=== PATIENT | female | born 1950 | race Caucasian/White ===

== ENCOUNTER → 2018-09-14 13:38 | Outpatient (CLI) | payer MEDICARE, SELFPAY | PROVIDERS: PCP Student in an Organized Health Care Education/Training Program; Visit Provider Student in an Organized Health Care Education/Training Program | DX: M85.832 Other specified disorders of bone density and structure, left forearm (principal); Z78.0 Asymptomatic menopausal state; Z82.62 Family history of osteoporosis | CPT/HCPCS: 77080; 77081 ==

== ENCOUNTER → 2018-10-12 14:47 | Outpatient (CLI) | payer MEDICARE, SELFPAY ==
--- NOTE | 2018-10-12 | DI.US.S_ITS ---
ULTRASOUND OF LEFT BREAST: 10/12/2018 CLINICAL: 6 month follow-up biopsy. Comparison is made to exams dated: 10/12/2018 mammogram, 03/11/2018 mammogram, and 03/11/2018 ultrasound biopsy - [facility]. Color flow and real-time ultrasound of the left breast were performed on the areas of interest. Gallardo scale images of the real-time examination were reviewed. There is a stable surgical scar in the left breast at 12 o'clock anterior depth. This scar displays posterior acoustic shadowing. IMPRESSION: BENIGN There is no sonographic evidence of malignancy. A 1 year screening mammogram is recommended. This exam was interpreted at Station ID: [id number]. Electronically Signed By: Court quintanilla/:10/12/2018 17:28:56 letter sent: Normal Exam Ultrasound BI-RADS: 2 Benign
--- NOTE | 2018-10-12 | DI.MG.S_ITS ---
UNILATERAL LEFT DIGITAL DIAGNOSTIC MAMMOGRAM 3D/2D SHORT-TERM FOLLOW-UP: 10/12/2018 CLINICAL: Patient returns for a 6 month follow up of the left breast. Post biopsy. Comparison is made to exams dated: 03/30/2018 specimen - [facility], 03/11/2018 mammogram - [facility], and 03/30/2018 stereotactic biopsy - [facility]. There are scattered fibroglandular elements in left breast. There is a stable architectural distortion in the left breast central to the nipple anterior depth. There is a biopsy clip associated with the architectural distortion. No other significant masses or calcifications are seen in the breast. IMPRESSION: INCOMPLETE: NEEDS ADDITIONAL IMAGING EVALUATION The stable architectural distortion in the left breast is indeterminate. A targeted ultrasound of the left breast is recommended and will be performed immediately following this exam. This exam was interpreted at Station ID: [id number]. NOTE: For mammograms, a report in lay terms will be sent to the patient. Approximately 15% of breast malignancies will not be visualized mammographically. In the management of a palpable breast mass, a negative mammogram must not discourage biopsy of a clinically suspicious lesion. Electronically Signed By: Court quintanilla/:10/12/2018 15:46:11 letter sent: Additional Imaging Needed ACR BI-RADS Category 0: Incomplete [id number]
== END ==
PROVIDERS: PCP Student in an Organized Health Care Education/Training Program; Visit Provider Student in an Organized Health Care Education/Training Program
DX: R92.8 Other abnormal and inconclusive findings on diagnostic imaging of breast (principal)
CPT/HCPCS: 76642; 77065; G0279

== ENCOUNTER → 2018-11-03 15:48 | Outpatient (CLI) | payer MEDICARE, SELFPAY ==
--- NOTE | 2018-11-03 | DI.CT.S_ITS ---
PROCEDURE: CT SINUS SCREEN WO CON INDICATIONS: chronic sinusitis TECHNIQUE: Noncontrast 3.0 mm axial images acquired from the frontal sinuses to the mid-sella, with coronal and sagittal reformats. For radiation dose reduction, the following was used: automated exposure control, adjustment of mA and/or kV according to patient size. COMPARISON: [facility], CT, SINUS SCREEN WO CONTRAST, 09/13/2012, 9:23. FINDINGS: Image quality: Excellent. Maxillary Sinuses: No bony remodeling or destruction. Sinuses are clear. Ethmoid Air Cells: No bony remodeling or destruction. Sinuses are clear. Sphenoid Sinuses: No bony remodeling or destruction. Sinuses are clear. Frontal Sinuses: No bony remodeling or destruction. Sinuses are clear. Ostiomeatal Complexes: Ostiomeatal complexes are patent. No Beulah cells. Miscellaneous: Visualized intra-orbital contents are normal. Right eduardo bullosa. Leftward nasal septal deviation. Diffuse cervical disc degeneration. Left temporal mandibular joint degeneration. IMPRESSION: Clear sinuses. Right eduardo bullosa. Dictated by: Devan Fisher M.D. on 11/03/2018 at 16:21 Approved by: Devan Fisher M.D. on 11/03/2018 at 16:25
== END ==
PROVIDERS: PCP Student in an Organized Health Care Education/Training Program; Visit Provider Otolaryngology
DX: J34.3 Hypertrophy of nasal turbinates (principal); J32.9 Chronic sinusitis, unspecified; M47.812 Spondylosis without myelopathy or radiculopathy, cervical region; M19.91 Primary osteoarthritis, unspecified site
CPT/HCPCS: 70486

== ENCOUNTER → 2019-02-08 15:09 | Outpatient (CLI) | payer MEDICARE, SELFPAY ==
--- NOTE | 2019-02-08 | DI.MG.S_ITS ---
BILATERAL DIGITAL SCREENING MAMMOGRAM 3D/2D WITH CAD: 02/08/2019 CLINICAL: Routine screening. Family history of breast cancer. Comparison is made to exams dated: 10/12/2018 mammogram - [facility], 03/30/2018 specimen, and 03/30/2018 stereotactic biopsy - [facility]. There are scattered fibroglandular elements in both breasts. Current study was also evaluated with a Computer Aided Detection (CAD) system. There are benign calcifications in both breasts. There also is a benign biopsy clip in the left breast. No significant masses, calcifications, or other findings are seen in either breast. There has been no significant interval change. IMPRESSION: There is no mammographic evidence of malignancy. A 1 year screening mammogram is recommended. This exam was interpreted at Station ID: [id number]. NOTE: For mammograms, a report in lay terms will be sent to the patient. Approximately 15% of breast malignancies will not be visualized mammographically. In the management of a palpable breast mass, a negative mammogram must not discourage biopsy of a clinically suspicious lesion. Electronically Signed By: Salbador fontana/lala:02/08/2019 16:31:21 letter sent: Normal Exam ACR BI-RADS Category 2: Benign Finding(s) 3342F
== END ==
PROVIDERS: PCP Student in an Organized Health Care Education/Training Program; Visit Provider Student in an Organized Health Care Education/Training Program
DX: Z12.31 Encounter for screening mammogram for malignant neoplasm of breast (principal); Z80.3 Family history of malignant neoplasm of breast
CPT/HCPCS: 77063; 77067

== ENCOUNTER → 2019-10-09 15:57 | Outpatient (CLI) | payer MEDICARE, SELFPAY ==
--- NOTE | 2019-10-09 | DI.MRI.S_ITS ---
PROCEDURE: MR LUMBAR SPINE WO CON INDICATIONS: Low back pain TECHNIQUE: Noncontrast sagittal T1 spin echo and T2 fast echo, sagittal STIR, axial T1 and T2 fast spin echo through the lumbar spine. In cases with scoliosis, additional coronal T2 fast spin echo may be performed. COMPARISON: [facility], , L-SPINE WITHOUT CONTRAST, 11/18/2011, 14:25. FINDINGS: Image quality: Excellent. Alignment and Curvature: There is trace retrolithesis of L1 on L2, L2 on L3, L3 on L4. Bone Marrow: Marrow is of normal overall signal. Moderate reactive endplate changes are present at L3-4, mild at L2-3, L4-5, L5-S1. No acute vertebral body compression fractures. Spinal Cord: Conus medullaris terminates at the L1 level. Visualized cord demonstrates normal signal and size. Paraspinous Soft Tissues: No paravertebral masses. Discs: Moderate to severe dessication is present L1-L2: Mild disc bulge with mild spinal stenosis. Mild bilateral foraminal narrowing with facet and ligamentum flavum hypertrophy. Interval progression is noted. L2-L3: Mild disc bulge with mild to moderate spinal stenosis. Mild bilateral foraminal narrowing with facet and ligamentum flavum hypertrophy. Interval progression is noted. L3-L4: Mild disc bulge with moderate spinal stenosis, progressive compared to prior exam. Moderate bilateral foraminal narrowing, progressive compared to prior exam. L4-L5: Mild disc bulge with moderate spinal stenosis, progressive compared to prior exam. Moderate right and [id number] left foraminal narrowing with endplate hypertrophy, progressive compared to prior exam. L5-S1: Mild disc bulge with mild spinal stenosis. Moderate to severe bilateral foraminal narrowing, relatively unchanged compared to prior exam. IMPRESSION: 1. Multilevel degenerative changes demonstrate areas of interval progression as above. 2. Multilevel spinal stenosis most significant at L3-4 and L4-5 secondary to disc bulge with intervening effect of facet/ligamentum flavum arthropathy. 4. Multilevel foraminal narrowing most notable at L5-S1 secondary to facet/ligamentum flavum arthropathy. Dictated by: Jami Barriga M.D. on 10/09/2019 at 17:21 Approved by: Jami Barriga M.D. on 10/09/2019 at 17:32
== END ==
PROVIDERS: Family Provider Student in an Organized Health Care Education/Training Program; PCP Student in an Organized Health Care Education/Training Program; Visit Provider Physical Medicine & Rehabilitation Pain Medicine
DX: M47.816 Spondylosis without myelopathy or radiculopathy, lumbar region (principal); M47.817 Spondylosis without myelopathy or radiculopathy, lumbosacral region; M48.061 Spinal stenosis, lumbar region without neurogenic claudication; M48.07 Spinal stenosis, lumbosacral region; M51.26 Other intervertebral disc displacement, lumbar region; M51.27 Other intervertebral disc displacement, lumbosacral region
CPT/HCPCS: 72148

== ENCOUNTER → 2019-11-20 16:26 | Outpatient (CLI) | payer MEDICARE, SELFPAY ==
[2019-11-20 16:53] LABS: Bacteria Urine None Seen; RBC Urine None Seen (0-5/HPF)
[2019-11-20 17:40] LABS: Add Manual Diff / Slide Review NO; Basophils Absolute Auto 0 /uL (0-100); Basophils Percent Auto 0.3 % (0-2); Eosinophils Absolute Auto 200 /uL (0-450); Eosinophils Percent Auto 2.8 % (2-4); Hematocrit 39.4 % (36-46); Hemoglobin 13.3 g/dL (12.0-16.0); Lymphocytes Absolute Auto 1800 /uL (1100-4500); Lymphocytes Percent Auto 26.1 % (25-40); Mean Corpuscular HGB Conc 33.8 % (30-36); Mean Corpuscular Volume 91.7 fL (80-100); Monocytes Absolute Auto 500 /uL (0-900); Monocytes Percent Auto 7.6 % (3-14); Neutrophils Absolute Auto 4400 /uL (1500-7000); Neutrophils Percent Auto 63.2 % (50-75); Platelet Count 246 X10^3/uL (150-400); Red Cell Distribution Width 14.1 % (11.6-14.8)
[2019-11-20 17:43] LABS: Hemoglobin A1C% w Est Avg Glu 5.3 % (4.0-6.0)
[2019-11-20 17:44] LABS: Appearance Urine UA CLEAR; Bilirubin Urine UA NEGATIVE (NEGATIVE); Color Urine UA YELLOW; Glucose Urine UA NEGATIVE (Negative); Ketones Urine UA TRACE (NEGATIVE); Leukocyte Esterase Urine UA NEGATIVE (NEGATIVE); Nitrite Urine UA NEGATIVE (Negative); Occult Blood Urine UA NEGATIVE (Negative); Protein Urine UA NEGATIVE (Negative); Urobilinogen Urine UA 0.2 E.U./dL (0.2)
[2019-11-20 17:48] LABS: BUN Creatinine Ratio 32.2 (6-22); Blood Urea Nitrogen 29 mg/dL (7-17); Calcium 9.7 mg/dL (8.4-10.2); Carbon Dioxide 29 mmol/L (22-32); Chloride 104 mmol/L (98-107); Estimated Glomerular Filt Rate > 60.0 mL/min (>60); Glucose 93 mg/dL (80-110); HEMOLYSIS < 15 (0-50); Potassium 3.9 mmol/L (3.4-5.1); Sodium 140 mmol/L (137-145)
[2019-11-20 18:03] LABS: Culture Indicated Urine Cult Not Indicated; Squamous Epithelial Cell Urine 0-1 /HPF (0-5/HPF); WBC Urine 0-1/HPF (0-5/HPF)
== END ==
PROVIDERS: Family Provider Student in an Organized Health Care Education/Training Program; PCP Student in an Organized Health Care Education/Training Program; Visit Provider Orthopaedic Surgery
DX: Z01.818 Encounter for other preprocedural examination (principal); Z01.812 Encounter for preprocedural laboratory examination; Z13.1 Encounter for screening for diabetes mellitus; N39.9 Disorder of urinary system, unspecified; R73.9 Hyperglycemia, unspecified
CPT/HCPCS: 36415; 80048; 81001; 83036; 85025; 93005

== ENCOUNTER 2019-12-26 09:43 | Day surgery (SDC) | payer MEDICARE, SELFPAY ==
[2019-12-19 12:02] VITALS: BMI 28.5
[2019-12-26] VITALS (15 sets, daily range): BP systolic 96–144; BP diastolic 58–82; PULSE 56–74; RESP 11–18; TEMP 36.2–36.8; O2SAT 94–100; BMI 28.5
--- NOTE | 2019-12-26 | DI.RAD.S_ITS ---
PROCEDURE: XR PELVIS 1-2V INDICATIONS: POSTERIOR HIP INTER OP TECHNIQUE: Intra-operative view of the pelvis and hip acquired. COMPARISON: [facility], CR, XR PELVIS WITH BILATERAL LATERAL HIPS, 08/30/2019, 15:25. [facility], CR, PELVIS W UNILATERAL HIP RIGHT, 05/31/2014, 10:54. FINDINGS: Bones: Intraoperative devices prior to placement of arthroplasty prostheses are in expected positions. No fractures or suspicious bony lesions. Right hip arthroplasty unchanged in appearance. Soft tissues: Overlying surgical retractors are present, along with other intraoperative changes. IMPRESSION: Status post interval left total hip arthroplasty. No acute hardware complications identified. Dictated by: Salbador Reyna M.D. on 12/26/2019 at 14:37 Approved by: Salbador Reyna M.D. on 12/26/2019 at 14:40
--- NOTE | 2019-12-26 06:00 | DI.RAD.S_ITS ---
PROCEDURE: XR HIP W PEL IF DONE LT 2V INDICATIONS: post op films TECHNIQUE: AP pelvis and lateral view of the left hip acquired. COMPARISON: [facility], JULITO, XR PELVIS 1-2V, 12/26/2019, 13:16. FINDINGS: Bones: Patient is status post bilateral hip arthroplasties, with hardware components in expected positions. The hip joint appears congruent. The visualized bony structures appear intact. Soft tissues: Overlying postoperative changes are noted. No suspicious soft tissue densities. IMPRESSION: Expected postsurgical change for left hip arthroplasty. Dictated by: Amie Posey MD, PhD on 12/26/2019 at 18:15 Approved by: Amie Posey MD, PhD on 12/26/2019 at 18:16
[2019-12-26] MEDS: ACETAMINOPHEN 325 MG TABLET 975 MG PO (10:15)
[2019-12-26] MEDS: PREGABALIN 75 MG CAPSULE PO (10:16)
[2019-12-26] MEDS: MELOXICAM 7.5 MG TABLET 15 MG PO (10:16)
[2019-12-26] MEDS: VANCOMYCIN 1,000 MG/200 ML PIGGYBACK 100 MG IV (10:39)
--- NOTE | 2019-12-26 10:47 | SUR.PREOP ---
Patient states she has a rash with vancomycin, possibly related to a rapid infusion of same but denies any other complications. Verified with Dr Salamanca if okay to proceed with vancomycin administration for surgery based on symptoms. Per Dr Salamanca, infuse Vancomycin at ordered dose but at a slower rate. Started Vancomycin at 100 ml/hr instead of 200 ml/hr as per protocol. Instructed patient to call if any rash, SOB, redness, etc, as infusion progresses. V/U. Call light at bedside.
[2019-12-26] MEDS: LACTATED RINGERS 1,000 ML 42 ML IV (11:15)
--- NOTE | 2019-12-26 11:41 | PM.PREOP ---
Pre-operative Note Interval Note History & Physical reviewed/Exam performed by Physician: Yes Changes to H&P: No
--- NOTE | 2019-12-26 11:41 | PM.OP.1 ---
Operative Date/Time/Diagnoses Date of procedure: 12/26/19 Time of procedure: 12:30 Pre-op diagnosis: left hip OA Post-op diagnosis: same Procedure & Clinicians Procedure: Left total hip arthroplasty Same procedure as scheduled: Yes Indications: The patient has had progressively worsening left hip pain with radiographic changes consistent with arthritis. Non-operative management has failed and the patient has requested total hip replacement. The risks, benefits and alternatives to surgery were discussed with the patient prior to proceeding. Risks discussed included, but were not limited to, failure to relieve pain, leg length discrepancy, dislocation, stiffness, infection, nerve damage, deep venous thrombosis, pulmonary embolism, stroke, coma, heart attack, permanent paralysis and , as well as the potential need for eventual revision of the prosthetic. Surgeon: Madeline Salamanca Graduate Student Instructor: Stephanie Jerry Anesthesia Type: General and Spinal Operative Notes Findings: Severe left hip osteoarthritis, significant left hip trochanteric bursitis Closure Type: primary Prosthetic devices, grafts, tissues, transplants, or devices: R3 48 mm cup, size 5 standard offset anthology, +4 by 32 Oxinium head Applied: drain(s) Estimated Blood Loss (mL): 250 Blood products transfused: none Procedure in detail: The patient was seen in the pre-operative area, where the patient identified the left hip as the operative site and this was marked with my initials. The patient received pre-operative antibiotics and was taken to the operating room and placed on the operative table in the right lateral decubitus position after satisfactory anesthesia. A full time staff interpreter out was performed. The left leg was prepared from the ankle to the iliac crest with ChloroPrep in the usual fashion and draped through sterile drapes. The hip was approached through an approximately 20 cm incision centered over the greater trochanter and curving gently posteriorly as it went proximally. This was carried sharply to the fascia carlos enrique, which was divided and retracted with a self retaining retractor. The trochanteric bursa was excised with care being taken to avoid the sciatic nerve, which was identified and protected throughout the case. The short external rotators were incised and the capsulomuscular flap was raised and tagged for later repair. The hip was dislocated, and a femoral neck osteotomy performed approximately 15 mm above the lesser trochanter. Retractors were placed around the femur. The canal was opened with a box cutting osteotome, followed by a T handled reamer and a lateralizing reamer. The chili pepper broach was then used, followed by sequential broaching until there was good stability of the broach in the femur. Retractors were placed to expose the acetabulum. The labrum and central soft tissues were removed. Reaming was performed initially going up in 2 mm increments, then 1 mm increments until good bite was obtained with an odd sized reamer. The cup 1 mm larger than the last reamer was then inserted using the appropriate anteversion guides. A trial neutral liner was placed. The broach was placed in the canal. A trial head and neck were then placed and the hip relocated and checked for leg length and stability. An intraoperative film confirmed the component position and no evidence of fracture. The patient was stable in the position of sleep, of squatting, and could be put through a range of motion with 45 degrees internal rotation without dislocation. At 90 degrees flexion, internal rotation to 70 was possible before dislocation. This was felt to be satisfactory and the appropriate components were opened, and the trials were removed. The acetabular liner was impacted into position. The final stem was then impacted into the prepared femoral canal. A brief Betadine soak was performed while trialing with head options. The hip was meticulously irrigated with normal saline. Finally the femoral head was impacted onto the stem. It was more stable with the +4 then with a 0 head. The acetabulum was cleared of all material and the hip relocated one final time. The capsulomuscular flap was then repaired to the greater trochanter though an awl hole using the tag sutures. The short external rotators were repaired with a nonabsorbable suture. A deep drain was placed and brought out anteriorly. The fascia carlos enrique was closed with Vicryl. The subcutaneous layer was closed with barbed sutures and SteriStrips. An Aquacel Ag dressing was applied and the patient was taken to recovery having tolerated the procedure well. Complications: none Post-operative Condition: stable Disposition: Acute Care Plan for aftercare: The patient will be maintained on a standard total hip replacement protocol with weight bearing as tolerated and posterior hip precautions. The patient will receive Aspirin and sequential compression devices for DVT prophylaxis. The patient will be discharged home when safe for the home environment.
[2019-12-26] MEDS: CLINDAMYCIN 600 MG/50 ML PIGGYBACK 50 MG IV (12:11)
[2019-12-26] MEDS: TRANEXAMIC ACID 1,000 MG VIAL 1000 MG INJ ×2 (12:25→14:01)
--- NOTE | 2019-12-26 12:36 | SUR.OPER ---
right Lateral on padded OR bed. Gel axillary roll. Arms secured on padded armboard with pillow supporting top arm. Padded hip positioner braces x4 - anterior and posterior chest and pelvis. Additional gel pad used anterior pelvis. Gel pad under bottom leg from knee to foot and secured with tape over sheet.
[2019-12-26] MEDS: BUPIVACAINE LIPOSOME 266 MG/20 ML VIAL INJ (13:38)
[2019-12-26] MEDS: BUPIVACAINE 0.25% W/ EPI 30 ML VIAL 60 ML INJ (13:38)
--- NOTE | 2019-12-26 15:00 | SUR.PHASEI ---
Patient alert, somnolent. Arouses easily to voice. Unable to move LE at this time, Tolerating po. Denies nausea and pain.
[2019-12-26] MEDS: LACTATED RINGERS 1,000 ML 125 ML IV (16:42)
[2019-12-26] MEDS: ACETAMINOPHEN 325 MG TABLET 650 MG PO ×2 (16:44→21:09)
[2019-12-26] MEDS: IBUPROFEN 400 MG TABLET PO ×2 (16:45→21:10)
[2019-12-26] MEDS: ASPIRIN EC 81 MG TABLET PO (21:10)
[2019-12-26] MEDS: DOCUSATE 100 MG CAPSULE PO (21:11)
[2019-12-26] MEDS: AZELASTINE 2 EACH NASAL (21:12)
[2019-12-26] MEDS: CEFAZOLIN 2 GM/100 ML FROZ.PIGGY IV (21:16)
[2019-12-26] MEDS: diphenhydrAMINE 50 MG/ML VIAL 25 MG IV (23:42)
[2019-12-27] MEDS: IBUPROFEN 400 MG TABLET PO ×3 (00:59→10:21)
--- NOTE | 2019-12-27 01:37 | PC.NURSE ---
Patient seen and assessed at 2345. Is alert and oriented. Breath sounds diminished but CTA with RA sat of 99%; on continuous oximetry as had epidural. Using home bipap. HRR but bradycardic at 56 bpm. Denies nausea. BT present and is passing flatus. Able to move self in bed. Up to BSC with walker and 1 assist and maintains posterior hip precautions. Voiding without dysuria, frequency or urgency. Aquacel dressing to left hip is CDI. Hemovac is intact and compressed. Does have some numbness to lateral aspect of left foot which she states is chronic and due to a nerve impingement; otherwise CMS is intact. Wearing bilateral calf SCD's. Denies pain. Does complain of itching from abdomen to face so medicated with Benadryl. Fall risk score is moderate; bed alarm on for safety. When 0100 scheduled Motrin given patient states left hip pain is only 1/10. States Benadryl has resolved her pruritis.
[2019-12-27] MEDS: LACTATED RINGERS 1,000 ML 125 ML IV (02:16)
[2019-12-27] MEDS: CEFAZOLIN 2 GM/100 ML FROZ.PIGGY IV (05:24)
[2019-12-27 05:28] LABS: Hematocrit 35.7 % (36-46); Hemoglobin 11.9 g/dL (12.0-16.0)
[2019-12-27 05:40] VITALS: BP 112/60; PULSE 64; RESP 16; TEMP 37; O2SAT 100
[2019-12-27 07:48] VITALS: BP 100/59; PULSE 65; RESP 16; TEMP 36.4; O2SAT 98
--- NOTE | 2019-12-27 07:55 | P.PN_ITS ---
Subjective Subjective Date Patient Seen: 12/27/19 Time Patient Seen: 07:55 Interval history: POD #1 s/p LTHA with Dr. Salamanca. Patient is doing well, no acute events overnight. Complains of minimal pain in hip. Voiding and eating without difficulty or assistance. Has not mobilized with PT yet. Hemovacc drain output 25 cc last shift. Denies fever, chills, chest pain, shortness of breath, pain in calves Exam Vital Signs (past 8 hours): - 12/27/19 05:40 Temperature 98.6 F Pulse Rate 64 Respiratory Rate 16 Blood Pressure 112/60 Pulse Oximetry 100 Oxygen Delivery Method Room Air Oxygen Flow Rate 0 Narrative Exam Narrative: 69 year old female is laying comfortably in bed, in no apparent distress. A&Ox3. Aquacel dressing CDI, SCDs and hemovacc in place. Sensory function grossly intact to light touch in LE BL. Able to actively dorsiflex/plantar flex BL. Dorsalis pedis 2+ BL. Calves warm, soft, compressible, non tender to palpation. Objective Labs Result Diagrams: 12/27/19 05:09 Labs: Laboratory Results - last 24 hr 12/27/19 05:09 Hgb 11.9 L Hct 35.7 L Assessment & Plan Post-op Postoperative Procedures: Procedures Operation Date: 12/26/19 11:45 Actual Procedures Side Surgeon p Total Hip Arthroplasty Left Madeline Salamanca MD Postoperative day: 1 Postoperative status: doing well Postoperative plan: discharge Postoperative plan narrative: Patient is doing well - pain well managed, voiding without difficulty or assistance Needs to complete PT Discharge home today pending PT clearance Discontinue hemovacc drain Continue SCDs and ASA 81mg BID for DVT prophylaxis Has prescription for [place] at home Time Spent With Patient Time with patient: less than 15 minutes Quality VTE Deep Vein Thrombosis/Pulmonary Embolism Present on Admission: No
--- NOTE | 2019-12-27 10:01 | PT.IIE ---
Current Diagnoses Unilateral primary osteoarthritis, left hip (12/26/19) Surgery Performed Operation Date: 12/26/19 11:45 Actual Procedures p Total Hip Arthroplasty(Left) - Madeline Salamanca MD Surgical History (Last Updated 12/19/19 @ 12:17 by Sharon Degroot RN) History of total right hip arthroplasty (Acute ~2013) Hx of arthroscopy of left knee (Acute) Hx of dilation and curettage (Acute ~1968) Hx of left breast biopsy (Acute) Hx of tonsillectomy (Acute) S/P excision of lipoma (Acute ~2015) Status post epidural steroid injection (Acute) Medical History (Last Updated 12/19/19 @ 12:17 by Sharon Degroot RN) Arthritis (Acute) Cervical nerve root impingement (Acute) Chronic cough (Acute) Edema (Acute) Insomnia (Chronic) Lumbar nerve root impingement (Acute) Numbness (Acute) Obstructive sleep apnea of adult (Chronic) Osteoarthritis (Acute) Palpitations (Acute) Seasonal allergies (Acute) Sinusitis (Acute) Snoring (Inactive) Thoracic nerve root impingement (Acute) Physical Therapy Inpatient Evaluation/Re-Eval M1 PT/OT-IP Prior Functional Status Start: 12/27/19 09:48 Freq: NEEDED Status: Active Protocol: Document 12/27/19 08:37 (Rec: 12/27/19 10:01 [id number]) Medical Review Prior Functional Status Medical History Reviewed Yes Diet/Fluid Consistency Regular Communication no deficits noted. Mobility and Gait Used SPC for community mobility recently d/t L hip pain. Difficulty climbing up and downstairs with step to pattern and rails. Used sock aid d/t limited external rotation Activities of Daily Living and IADL's Independent for all ADLs and IADLs with SPC occasionally. Social History Household Members children Living Arrangements House Number of Floors (Floors) One Floor Number of Stairs To Enter/Railing? 1 platform step to front entrance. Home Environment Standard Height Toilet Home Equipment Front Wheel Walker,Straight Cane,Raised Toilet Seat w/ Armrests,Tub Transfer Bench, Long Handled Shoe Horn,Fish Icer ,Sock Aid,Grab Bars Near Toilet Employment Status Retired Additional Social History Comment Pt lives with her son in a daylight saving house in [facility]. Son stays on basement and works multimedia assistant who is able to assist after work. Pt will have her sister to stay with her for next couple weeks to assist. Pt had L4-5 TF CARLOS on 10/31/19. Pt also scheduled outpatient PT starting from next week. M2 PT-IP Current Condition Start: 12/27/19 09:48 Freq: NEEDED Status: Active Protocol: Document 12/27/19 08:37 HH (Rec: 12/27/19 10:01 [email or web address]) Physical Therapy Current Condition Current Condition Evaluation Date 12/27/19 Treatment Diagnosis L CHANTALE posterior approach, difficulty in walking Onset Date 12/26/19 Precautions Posterior Hip Precautions No Hip Flexion > 90 degrees,No Hip Internal Rotation,No Hip Adduction Weight Bearing Status Weight Bearing Status Weight Bear as Tolerated M3 PT-IP Subjective Start: 12/27/19 09:48 Freq: NEEDED Status: Active Protocol: Document 12/27/19 08:37 HH (Rec: 12/27/19 10:01 [email or web address]) Subjective Physical Therapy Visit Type Type Initial Evaluation Visit Start Time 08:37 Visit Stop Time 08:53 Total Visit Minutes [address]. Number of ALUMINUM CONTAINER TESTER Visits 0 Physical Therapy Visit Comments Patient Comments I feel pretty good except i could feel my leg is longer than before. Patient Goals To return home with sister. Therapy Pain Assessment Pain When Pain Assessed During Mobility Pain Present Pain Present Pain Reported Location L hip Intensity 3 Scale Used Numeric (1 - 10) Description Aching Pain Management Techniques Apply Cold,Timing of Activity with Medications M4 PT-IP Mobility and Gait Start: 12/27/19 09:48 Freq: NEEDED Status: Active Protocol: Document 12/27/19 08:37 HH (Rec: 12/27/19 10:01 [email or web address]) PT-Transfer Assessment Sit to and From Stand Sit to and from Stand Standby Assistance,Use of Upper Extremities Equipment Transfer Assistive Device Bed Rail,Gait Belt,Front Wheeled Walker Orthotic/Prosthetic Devices or Brace: No Transfers Transfer Destination Bed,Chair Transfer Technique Stand Step Pivot Transfer Ability Level of Assist Standby Assistance,Use of Upper Extremities Comments Mobility Comments Pt was up in chair upon assessment and denied pain. She recalled all 3 precautions clearly. She then stood up with SBA from staggered stance position. She then amb from chair to north station and returned to chair for approx 350 ft with FWW. Pt demonstrated a L hip hike pattern during swing phase possibly d/t leg length discrepency. She was able to fully WB on L hip with pain up to 2-3/10 but no loss of balance. Pt returned to chair with staggered stance and call light was placed within reach . Gait Assessment Gait Gait Assistance Required: Standby Assistance Distance (Feet) 350 Able to Maintain Weight Bearing Status Yes During Gait Assistive Devices Assistive Device Gait Belt,Front Wheeled Walker Orthotic/Prosthetic Devices or Brace: No Gait Deviations General Gait Pattern Antalgic,Decreased Stride Length,Decreased Feet Clearance Factors Limiting Gait Function Factors Limiting Gait Function Decreased Activity Tolerance, Decreased Strength,Limited Range of Motion,Pain Comments Gait Comments see mobility comments. Stair Climbing Assessment Evaluation Level of Assist On Stairs Standby Assistance Devices Stair Climbing Assistive Devices Front Wheel Walker Technique/Endurance Stair Climbing Direction Ascend and Descend Stair Climbing Technique Step to Step Number of Steps Climbed 1 Query Text: Stair Climbing Set # Repetitions (reps) 2 Comments Stair Climbing Comments with platform step. Able to lead with R LE for ascend and lead with LLE for descend safely. PT-Balance Assessment Sitting Balance and Reactions Static Sitting Balance Ability Normal Dynamic Sitting Balance Ability Normal Standing Balance and Reactions Static Standing Balance Ability Normal Dynamic Standing Balance Ability Normal Device Used FWW M5 PT-IP Objective Assessments Start: 12/27/19 09:48 Freq: NEEDED Status: Active Protocol: Document 12/27/19 08:37 (Rec: 12/27/19 10:01 [email or web address]) Orientation Orientation/Cognition Level of Alertness Alert Orientation Name,Age,Birthday,Month,Date, Year,Day of Week,Place, Situation Language Function Ability No Deficits Noted Safety Awareness Understands Safety Issues Memory Description No Deficits Noted Gross Range of Motion Upper Extremity ROM Assessment Within Functional Limits Lower Extremity ROM Assessment Left Impaired Strength Upper Extremity Strength Assessment Within Functional Limits Lower Extremity Strength Assessment Left Impaired Hip 4+/5 Knee 5/5 Ankle 5/5 Coordination Assessment Gross Coordination Gross Coordination WNL Sensation Assessment Sensation Gross Sensation WNL Muscle Tone Muscle Tone WNL Yes M6 PT-IP Treatment Start: 12/27/19 09:48 Freq: NEEDED Status: Active Protocol: Document 12/27/19 08:37 (Rec: 12/27/19 10:01 [email or web address]) Physical Therapy Treatment Exercises Exercises Quad Sets,Heel Slides Education Education Provided Precautions,Weight Bearing Status,Post-Op Packet,Safety M7 PT-IP Assessment and Plan Start: 12/27/19 09:48 Freq: NEEDED Status: Active Protocol: Document 12/27/19 08:37 (Rec: 12/27/19 10:01 [email or web address]) PT Summary Assessment and Plan Potential Rehabilitation Potential Excellent Status of Condition at Evaluation Stable Summary Impairments Pain,ROM,Strength,Balance,Bed Mobility,Transfers,Gait, Activity Tolerance Assessment Summary Pt is a low complexity s/o POD1 L CHANTALE (post approach). Pt did very well for PT eval and able to amb from room door to end of [facility] and completed step climbing with all SBA and FWW. Pt recalled all 3 post op precations clearly and able to followed them safely during mobility. However, pt did amb with a L hip hike during swing phase and had difficulty reaching the floor while single leg stance on LLE. Dis with pt to dis such possible leg length discrepency at her next follow up with surgical team. Pt is safe to be d/c home with sister's assistance and outpatient PT to improve mobility and strength. Frequency of Treatment Frequency Of Treatment Discharge Recommendations To Nursing Amount of Assist Needed Standby Assistance Discharge Recommendations PT Discharge Recommendations Home with Assistance, Outpatient PT Transportation Needs at Discharge Private Vehicle
[2019-12-27] MEDS: ACETAMINOPHEN 325 MG TABLET 650 MG PO (10:21)
[2019-12-27] MEDS: DOCUSATE 100 MG CAPSULE PO (10:21)
[2019-12-27] MEDS: ASPIRIN EC 81 MG TABLET PO (10:21)
[2019-12-27] MEDS: SODIUM CHLORIDE 0.9% FLUSH 10 ML IV (10:22)
--- NOTE | 2019-12-27 10:38 | PC.NURSE ---
Patient is A&Ox3, she is ready to discharge to home. She states that her pain is 0 when at rest but up to a 3 when ambulating. Dressing to L.leg with aquacel this is cdi. Hemovac will also be taken out before patient goes home.
--- NOTE | 2019-12-27 14:07 | CM.IDA ---
Initial DCP Assessment Note: Pt is a 69 yo female, resident of [place], POD#1 from hip surgery w/ Dr Salamanca PCP: Shelbie Dan Payer: MCR/ALEN Reviewed chart, pt discussed in multidisciplinary rounds this morning. Therapy has cleared pt for return home w/family to assist and pt has planned for home, DC order from [facility] has already been initiated this morning. Met w/pt and her sister this morning and explained SW role. Pt feeling confident about her return home and feels well supported, sister will be available 07/06 until pt does not need this level of assist. P: Home today w/family and outpt PT via pov [facility]
== END 2019-12-27 11:45 | disposition home or self-care (01) ==
LOC: AC 12-27 10:55 → OR 12-27 14:03
PROVIDERS: Family Provider Student in an Organized Health Care Education/Training Program; PCP Student in an Organized Health Care Education/Training Program; Referring Provider Orthopaedic Surgery; Visit Provider Orthopaedic Surgery
PROC: 0SRB0JZ Replacement of Left Hip Joint with Synthetic Substitute, Open Approach (ICD-10-PCS; CPT 27130; principal; 2019-12-26 11:45)
DX: M16.12 Unilateral primary osteoarthritis, left hip (principal); G47.33 Obstructive sleep apnea (adult) (pediatric); M70.62 Trochanteric bursitis, left hip
CPT/HCPCS: 27130; 36415; 72170; 73502; 85014; 85018; 97161; C1776; C9290; J0690; J1100; J1200; J2250; J2274; J2405; J2704; J3010

== ENCOUNTER → 2020-01-31 10:46 | Outpatient (CLI) | payer MEDICARE, SELFPAY ==
[2019-12-26 15:50] VITALS: BMI 28.5
[2020-01-31 12:04] LABS: Add Manual Diff / Slide Review NO; Basophils Absolute Auto 0 /uL (0-100); Basophils Percent Auto 0.4 % (0-2); Eosinophils Absolute Auto 200 /uL (0-450); Eosinophils Percent Auto 4.3 % (2-4); Hemoglobin 12.8 g/dL (12.0-16.0); Lymphocytes Absolute Auto 1800 /uL (1100-4500); Lymphocytes Percent Auto 32.6 % (25-40); Mean Corpuscular HGB Conc 33.6 % (30-36); Mean Corpuscular Hemoglobin 30.7 PG (26-34); Mean Corpuscular Volume 91.5 fL (80-100); Monocytes Absolute Auto 500 /uL (0-900); Monocytes Percent Auto 8.4 % (3-14); Neutrophils Absolute Auto 2900 /uL (1500-7000); Neutrophils Percent Auto 54.3 % (50-75); Platelet Count 244 X10^3/uL (150-400); Red Blood Cell Count 4.15 X10^6/uL (4.0-5.2); Red Cell Distribution Width 13.3 % (11.6-14.8); White Blood Cell Count 5.4 X10^3/uL (4.5-11.0)
[2020-01-31 12:24] LABS: C-Reactive Protein Quant < 0.5 mg/dL (<1.0)
[2020-01-31 12:36] LABS: Erythrocyte Sedimentation Rate 9 MM/HR (0-20)
== END ==
PROVIDERS: Family Provider Student in an Organized Health Care Education/Training Program; PCP Student in an Organized Health Care Education/Training Program; Referring Provider Orthopaedic Surgery; Visit Provider Orthopaedic Surgery
DX: Z96.642 Presence of left artificial hip joint (principal)
CPT/HCPCS: 36415; 85025; 85651; 86140

== ENCOUNTER 2020-02-28 17:09 | Inpatient (IN) | payer MEDICARE, SELFPAY ==
[2019-12-26 15:50] VITALS: BMI 28.5
--- NOTE | 2020-02-28 17:09 | DI.RAD.S_ITS ---
PROCEDURE: XR HIP W PEL IF DONE LT 2V INDICATIONS: fall, lt hip pain TECHNIQUE: AP pelvis with lateral view of the left hip. COMPARISON: None. FINDINGS: Bones: Bilateral hip prostheses are demonstrated. There is a periprosthetic fracture of the proximal left femur along the femoral component. This demonstrates mild anterior displacement and mild varus angulation. Pelvic ring appears intact. No suspicious bony lesions. Soft tissues: The visualized bowel gas pattern is normal. No suspicious soft tissue calcifications. IMPRESSION: 1. Mildly displaced periprosthetic fracture of the proximal left femur. Dictated by: Tramaine Luu M.D. on 02/28/2020 at 17:40 Approved by: Tramaine Luu M.D. on 02/28/2020 at 17:41
[2020-02-28 17:10] VITALS: BP 183/103; PULSE 60; RESP 22; TEMP 36.4; O2SAT 100
[2020-02-28 17:43] VITALS: PULSE 82
--- NOTE | 2020-02-28 17:44 | ED.LOWEXIN ---
HPI - Extremity Injury (Lower) <Karely Delvalle, [employer] - Last Filed: 02/28/20 19:59> General Chief Complaint: Extremity Injury, Lower Stated Complaint: Hip Pain Time Seen by Provider: 02/28/20 17:18 Source: patient Mode of arrival: Ambulatory Limitations: no limitations History of Present Illness HPI Narrative: The patient is a 69-year-old female nonsmoker with history of bilateral hip replacements who presents with a chief complaint of left-sided hip pain after ground level fall. She states that she was gardening outside and her foot slipped she landed on her left hip entirely. She did not hit her head or neck. She denies any pain other than her hip. She states that she is concerned about a fracture around her prosthetic. She has not taken anything for the pain. She states her pain is a 4/10 at rest. She states she can move her toes on her left side. She has a history of sleep apnea as well as seasonal allergies. A left total hip arthroplasty done by Dr. Salamanca at this facility on December 26 of this year due to severe osteoarthritis and left hip trochanteric bursitis. Patient is adamant that her left hip is the only thing that hurts and she does not need further imaging Related Data Home Medications Medication Instructions Recorded Confirmed Resmed Aircurve 10 BIPAP #1 ea 05/03/19 05/03/19 aspirin 81 mg PO DAILY 02/28/20 02/28/20 fexofenadine [Olivia Allergy] 180 mg PO DAILY 02/28/20 02/28/20 fluticasone propionate [Flonase 1 spray INTRANASAL BEDTIME 02/28/20 02/28/20 Allergy Relief] naproxen sodium [Aleve] 220 mg PO BID PRN 02/28/20 02/28/20 Previous Rx's Medication Instructions Recorded acetaminophen 500 mg PO Q4H PRN #60 tab 12/27/19 Allergies Allergy/AdvReac Type Severity Reaction Status Date / Time Sulfa (Sulfonamide Allergy Severe RASH Verified 12/26/19 10:02 Antibiotics) adhesive tape Allergy Mild Rash Verified 12/26/19 10:02 amoxicillin [From Augmentin] AdvReac Severe GI UPSET Verified 12/26/19 10:02 clavulanic acid AdvReac Severe GI UPSET Verified 12/26/19 10:02 [From Augmentin] lactose AdvReac Mild LACTOSE Verified 12/26/19 10:02 INTOLERANCE vancomycin [VANCOMYCIN] AdvReac Mild became red Verified 12/26/19 10:02 with infusion. allergy versus red man syndrome Review of Systems <ALISTAIR Yee - Last Filed: 02/28/20 19:59> Review of Systems Narrative: GENERAL: Denies chills, fatigue, malaise, fever, sweats. HEENT: Denies sinus pain, ear pain, sore throat, difficulty swallowing, dizziness. RESPIRATORY: Denies dyspnea, cough, wheezing, hemoptysis, sputum. CARDIOVASCULAR: Denies chest pain, palpitations, orthopnea, edema, GASTROINTESTINAL: Denies nausea, vomiting, abdominal pain, diarrhea, constipation, melena. : Denies dysuria, frequency, incontinence, hematuria, urinary retention. MUSCULOSKELETAL: See HPI SKIN: Denies rash, skin lesions, or other NEUROLOGIC: Denies weakness, headache, numbness, change in speech, confusion, seizures, incoordination. PSYCHIATRIC: No concerning psychosocial issues. 12 point review of systems is negative except for those stated above Patient History <MIAN Yee - Last Filed: 02/28/20 19:59> Medical History Arthritis (Acute) Cervical nerve root impingement (Acute) Chronic cough (Acute) Edema (Acute) Insomnia (Chronic) Lumbar nerve root impingement (Acute) Numbness (Acute) Obstructive sleep apnea of adult (Chronic) Osteoarthritis (Acute) Palpitations (Acute) Seasonal allergies (Acute) Sinusitis (Acute) Snoring (Inactive) Thoracic nerve root impingement (Acute) Surgical History History of hip replacement (Acute) History of total right hip arthroplasty (Acute ~2013) Hx of arthroscopy of left knee (Acute) Hx of dilation and curettage (Acute ~1968) Hx of left breast biopsy (Acute) Hx of tonsillectomy (Acute) S/P excision of lipoma (Acute ~2015) Status post epidural steroid injection (Acute) Social History household members: children occupational status: employed Smoking Status: Never smoker alcohol intake: current Smoking Status: Never smoker alcohol intake frequency: 0-2 drinks per day Substance Use Type: does not use Exam <ALISTAIR Yee - Last Filed: 02/28/20 19:59> Narrative Exam Narrative: GENERAL: This is a well-nourished, well-developed patient, no acute distress HEAD: Atraumatic. Normocephalic. No temporal or scalp tenderness. EYES: Pupils equal round and reactive. Extraocular motions intact. No scleral icterus. No injection or drainage. ENT: Nose without bleeding, purulent drainage or septal hematoma. Throat without erythema, tonsillar hypertrophy or exudate. Uvula midline. Airway patent. NECK: Trachea midline. No JVD or lymphadenopathy. Supple, nontender, no meningeal signs. CARDIOVASCULAR: Regular rate and rhythm RESPIRATORY: Clear to auscultation. Breath sounds equal bilaterally. No wheezes, rales, or rhonchi. GASTROINTESTINAL: Abdomen soft, non-tender, nondistended. No hepato-splenomegaly, or palpable masses. No guarding. EXTREMITIES: General pain to palpation left hip. Left leg slightly shortened. Positive pedal pulses left foot. Wiggling left toes. BACK: Nontender without deformity or crepitance. No flank tenderness. No pain to CT or L-spine palpation NEURO: AOx3. No gross cranial nerve deficit. Clear speech. SKIN: No rash or erythema visible skin Initial Vital Signs Initial Vital Signs: Vital Signs Temperature 97.5 F L 02/28/20 17:10 Pulse Rate 60 02/28/20 17:10 Respiratory Rate 22 02/28/20 17:10 Blood Pressure 183/103 H 02/28/20 17:10 Pulse Oximetry 100 02/28/20 17:10 <Ros Pop MD - Last Filed: 02/29/20 18:17> Initial Vital Signs Initial Vital Signs: Vital Signs Temperature 97.5 F L 02/28/20 17:10 Pulse Rate 60 02/28/20 17:10 Respiratory Rate 22 02/28/20 17:10 Blood Pressure 183/103 H 02/28/20 17:10 Pulse Oximetry 100 02/28/20 17:10 Course <ALISTAIR Yee - Last Filed: 02/28/20 19:59> Orders Ordered: Acetaminophen (Tylenol) 975 mg PO TID KETAN Last Admin: 02/29/20 14:51 Dose: 975 mg Documented by: Admin: 02/29/20 09:10 Dose: 650 mg Documented by: FRED Calcium Carbonate/Cholecalciferol (Oyster Shell 500-Vit D3 200 Tb) 1 each PO BIDWM [facility] Last Admin: 02/29/20 17:33 Dose: 1 each Documented by: SONJA Cyclobenzaprine HCl (Flexeril) 5 mg PO Q8HR PRN PRN Reason: Spasms Last Admin: 02/29/20 17:33 Dose: 5 mg Documented by: Admin: 02/29/20 09:30 Dose: 5 mg Documented by: FRED Docusate Sodium (Colace) 100 mg PO BID [facility] Last Admin: 02/29/20 08:06 Dose: 100 mg Documented by: Admin: 02/28/20 22:08 Dose: 100 mg Documented by: LAWRENCE Fluticasone Propionate (Flonase) 1 spray NASAL BEDTIME [facility] Loratadine (Claritin) 10 mg PO DAILY [facility] Morphine Sulfate (Morphine) 1 mg IV Q4HR PRN PRN Reason: Pain, Moderate (4-6) Morphine Sulfate (Morphine) 2 mg IV Q4HR PRN PRN Reason: Pain, Moderate (4-6) Naloxone HCl (Narcan) 0.2 mg IV Q2MIN PRN PRN Reason: Opiate Reversal Ondansetron HCl (Zofran) 4 mg IV Q8HR PRN PRN Reason: Nausea And Vomiting Oxycodone HCl (Percolone) 5 mg PO Q3HR PRN PRN Reason: Pain, Moderate (4-6) Last Admin: 02/29/20 17:33 Dose: 5 mg Documented by: Admin: 02/29/20 14:51 Dose: 5 mg Documented by: Admin: 02/29/20 11:13 Dose: 5 mg Documented by: FRED Oxycodone HCl (Percolone) 2.5 mg PO Q3HR PRN PRN Reason: Pain, Moderate (4-6) Polyethylene Glycol (Miralax) 17 gm PO DAILY [facility] Last Admin: 02/29/20 09:10 Dose: 17 gm Documented by: FRED Discontinued Medications Hydrocodone Bitart/Acetaminophen ([place] 5/325) 1 tab PO Q4HR PRN PRN Reason: Pain, Moderate (4-6) Last Admin: 02/29/20 08:06 Dose: 1 tab Documented by: Admin: 02/29/20 04:57 Dose: 1 tab Documented by: Admin: 02/29/20 01:15 Dose: 1 tab Documented by: Admin: 02/28/20 20:48 Dose: 1 tab Documented by: LAWRENCE Diazepam (Valium) 5 mg PO Q6HR PRN PRN Reason: Spasms Enoxaparin Sodium (Lovenox) 40 mg SUBCUT DAILY KETAN Stop: 02/29/20 12:00 Last Admin: 02/29/20 08:05 Dose: 40 mg Documented by: FRED Hydromorphone HCl (Dilaudid) 0.5 mg IV Q2H PRN PRN Reason: Pain, Moderate (4-6) Hydromorphone HCl (Dilaudid) 1 mg IV Q2HR PRN PRN Reason: Pain, Severe (7-10) Hydromorphone HCl (Dilaudid) 1 mg IV NOW ONE Stop: 02/28/20 20:16 Last Admin: 02/28/20 20:28 Dose: Not Given Documented by: LAWRENCE Hydromorphone HCl (Dilaudid) 1 mg IV NOW ONE Stop: 02/28/20 20:31 Last Admin: 02/28/20 20:00 Dose: 1 mg Documented by: LAWRENCE Hydromorphone HCl (Dilaudid) 1 mg IV Q2HR PRN PRN Reason: Pain, Severe (7-10) Last Admin: 02/28/20 22:07 Dose: 1 mg Documented by: LAWRENCE Hydroxyzine Pamoate (Vistaril) 50 mg PO Q6HR PRN PRN Reason: Nausea Last Admin: 02/29/20 04:37 Dose: 50 mg Documented by: Admin: 02/28/20 22:46 Dose: 50 mg Documented by: LAWRENCE Sodium Chloride (Normal Saline 0.9%) 1,000 mls @ 150 mls/hr IV CONT KETAN Last Infusion: 02/28/20 19:40 Dose: 0 mls/hr Documented by: Admin: 02/28/20 19:00 Dose: 150 mls/hr Documented by: JOSSIE Dextrose/Sodium Chloride (Dextrose 5%-0.9% Ns) 1,000 mls @ 75 mls/hr IV CONT [facility] Last Admin: 02/29/20 11:13 Dose: 75 mls/hr Documented by: Infusion: 02/29/20 10:08 Dose: 75 mls/hr Documented by: Admin: 02/28/20 20:48 Dose: 75 mls/hr Documented by: LAWRENCE Morphine Sulfate (Morphine) 2 mg IV NOW ONE Stop: 02/28/20 18:37 Last Admin: 02/28/20 19:00 Dose: 2 mg Documented by: JOSSIE Vital Signs Vital signs: Vital Signs - 8 hr 02/28/20 17:10 02/28/20 17:43 02/28/20 19:11 Temperature 97.5 F L Pulse Rate 60 62 Pulse Rate [Left Dorsalis Pedis] 82 Respiratory Rate 22 16 Blood Pressure 183/103 H Blood Pressure [Left Arm] 156/76 H Pulse Oximetry 100 99 <Ros Pop MD - Last Filed: 02/29/20 18:17> Orders Ordered: Acetaminophen (Tylenol) 975 mg PO TID [facility] Last Admin: 02/29/20 14:51 Dose: 975 mg Documented by: Admin: 02/29/20 09:10 Dose: 650 mg Documented by: FRED Calcium Carbonate/Cholecalciferol (Oyster Shell 500-Vit D3 200 Tb) 1 each PO BIDWM [facility] Last Admin: 02/29/20 17:33 Dose: 1 each Documented by: SONJA Cyclobenzaprine HCl (Flexeril) 5 mg PO Q8HR PRN PRN Reason: Spasms Last Admin: 02/29/20 17:33 Dose: 5 mg Documented by: Admin: 02/29/20 09:30 Dose: 5 mg Documented by: FRED Docusate Sodium (Colace) 100 mg PO BID [facility] Last Admin: 02/29/20 08:06 Dose: 100 mg Documented by: Admin: 02/28/20 22:08 Dose: 100 mg Documented by: LAWRENCE Fluticasone Propionate (Flonase) 1 spray NASAL BEDTIME [facility] Loratadine (Claritin) 10 mg PO DAILY [facility] Morphine Sulfate (Morphine) 1 mg IV Q4HR PRN PRN Reason: Pain, Moderate (4-6) Morphine Sulfate (Morphine) 2 mg IV Q4HR PRN PRN Reason: Pain, Moderate (4-6) Naloxone HCl (Narcan) 0.2 mg IV Q2MIN PRN PRN Reason: Opiate Reversal Ondansetron HCl (Zofran) 4 mg IV Q8HR PRN PRN Reason: Nausea And Vomiting Oxycodone HCl (Percolone) 5 mg PO Q3HR PRN PRN Reason: Pain, Moderate (4-6) Last Admin: 02/29/20 17:33 Dose: 5 mg Documented by: Admin: 02/29/20 14:51 Dose: 5 mg Documented by: Admin: 02/29/20 11:13 Dose: 5 mg Documented by: FRED Oxycodone HCl (Percolone) 2.5 mg PO Q3HR PRN PRN Reason: Pain, Moderate (4-6) Polyethylene Glycol (Miralax) 17 gm PO DAILY [facility] Last Admin: 02/29/20 09:10 Dose: 17 gm Documented by: FRED Discontinued Medications Hydrocodone Bitart/Acetaminophen ([place] 5/325) 1 tab PO Q4HR PRN PRN Reason: Pain, Moderate (4-6) Last Admin: 02/29/20 08:06 Dose: 1 tab Documented by: Admin: 02/29/20 04:57 Dose: 1 tab Documented by: Admin: 02/29/20 01:15 Dose: 1 tab Documented by: Admin: 02/28/20 20:48 Dose: 1 tab Documented by: LAWRENCE Diazepam (Valium) 5 mg PO Q6HR PRN PRN Reason: Spasms Enoxaparin Sodium (Lovenox) 40 mg SUBCUT DAILY [facility] Stop: 02/29/20 12:00 Last Admin: 02/29/20 08:05 Dose: 40 mg Documented by: FRED Hydromorphone HCl (Dilaudid) 0.5 mg IV Q2H PRN PRN Reason: Pain, Moderate (4-6) Hydromorphone HCl (Dilaudid) 1 mg IV Q2HR PRN PRN Reason: Pain, Severe (7-10) Hydromorphone HCl (Dilaudid) 1 mg IV NOW ONE Stop: 02/28/20 20:16 Last Admin: 02/28/20 20:28 Dose: Not Given Documented by: LAWRENCE Hydromorphone HCl (Dilaudid) 1 mg IV NOW ONE Stop: 02/28/20 20:31 Last Admin: 02/28/20 20:00 Dose: 1 mg Documented by: LAWRENCE Hydromorphone HCl (Dilaudid) 1 mg IV Q2HR PRN PRN Reason: Pain, Severe (7-10) Last Admin: 02/28/20 22:07 Dose: 1 mg Documented by: LAWRENCE Hydroxyzine Pamoate (Vistaril) 50 mg PO Q6HR PRN PRN Reason: Nausea Last Admin: 02/29/20 04:37 Dose: 50 mg Documented by: Admin: 02/28/20 22:46 Dose: 50 mg Documented by: LAWRENCE Sodium Chloride (Normal Saline 0.9%) 1,000 mls @ 150 mls/hr IV CONT KETAN Last Infusion: 02/28/20 19:40 Dose: 0 mls/hr Documented by: Admin: 02/28/20 19:00 Dose: 150 mls/hr Documented by: JOSSIE Dextrose/Sodium Chloride (Dextrose 5%-0.9% Ns) 1,000 mls @ 75 mls/hr IV CONT [facility] Last Admin: 02/29/20 11:13 Dose: 75 mls/hr Documented by: Infusion: 02/29/20 10:08 Dose: 75 mls/hr Documented by: Admin: 02/28/20 20:48 Dose: 75 mls/hr Documented by: LAWRENCE Morphine Sulfate (Morphine) 2 mg IV NOW ONE Stop: 02/28/20 18:37 Last Admin: 02/28/20 19:00 Dose: 2 mg Documented by: JOSSIE Vital Signs Vital signs: Vital Signs - 8 hr 02/28/20 17:10 02/28/20 17:43 02/28/20 19:11 Temperature 97.5 F L Pulse Rate 60 62 Pulse Rate [Left Dorsalis Pedis] 82 Respiratory Rate 22 16 Blood Pressure 183/103 H Blood Pressure [Left Arm] 156/76 H Pulse Oximetry 100 99 MDM - Extremity Injury (Lower) <ALISTAIR Yee - Last Filed: 02/28/20 19:59> Lab Data Result diagrams: 02/29/20 05:20 02/29/20 05:20 Labs: Lab Results 02/28/20 02/28/20 02/28/20 Range/Units 18:05 18:05 18:05 WBC 11.3 H (4.5-11.0) X10^3/uL RBC 4.26 (4.0-5.2) X10^6/uL Hgb 12.9 (12.0-16.0) g/dL Hct 38.5 (36-46) % MCV 90.4 (80-100) fL MCH 30.2 (26-34) PG MCHC 33.4 (30-36) % RDW 13.4 (11.6-14.8) % Plt Count 265 (150-400) X10^3/uL Neut % (Auto) 82.2 H (50-75) % Lymph % (Auto) 9.5 L (25-40) % Dundy % (Auto) 6.2 (3-14) % Eos % (Auto) 1.9 L (2-4) % Baso % (Auto) 0.2 (0-2) % Neut # (Auto) 9300 H (1460-2716) /uL Lymph # (Auto) 1100 (3832-3588) /uL Dundy # (Auto) 700 (0-900) /uL Eos # (Auto) 200 (0-450) /uL Baso # (Auto) 0 (0-100) /uL PT 11.1 (10.1-12.7) SECONDS INR 1.0 (0.9-1.3) APTT 29 (26.4-36.2) SECONDS Sodium 137 (137-145) mmol/L Potassium 3.5 (3.4-5.1) mmol/L Chloride 104 (98-107) mmol/L Carbon Dioxide 25 (22-32) mmol/L BUN 16 (7-17) mg/dL Creatinine 0.79 (0.52-1.04) mg/dL Estimated GFR > 60.0 (>60) mL/min BUN/Creatinine Ratio 20.3 (6-22) Glucose 112 H (80-110) mg/dL Calcium 9.5 (8.4-10.2) mg/dL Total Bilirubin 0.4 (0.2-1.3) mg/dL AST 32 (14-36) IU/L ALT 22 (<35) IU/L Alkaline Phosphatase 96 (38-126) U/L Total Protein 7.5 (6.3-8.2) g/dL Albumin 4.4 (3.5-5.0) g/dL Globulin 3.1 (1.7-4.1) g/dL Albumin/Globulin Ratio 1.4 (1.0-2.8) Blood Type Antibody Screen 02/28/20 Range/Units 18:05 WBC (4.5-11.0) X10^3/uL RBC (4.0-5.2) X10^6/uL Hgb (12.0-16.0) g/dL Hct (36-46) % MCV (80-100) fL MCH (26-34) PG MCHC (30-36) % RDW (11.6-14.8) % Plt Count (150-400) X10^3/uL Neut % (Auto) (50-75) % Lymph % (Auto) (25-40) % Dundy % (Auto) (3-14) % Eos % (Auto) (2-4) % Baso % (Auto) (0-2) % Neut # (Auto) (6602-7109) /uL Lymph # (Auto) (6830-5273) /uL Dundy # (Auto) (0-900) /uL Eos # (Auto) (0-450) /uL Baso # (Auto) (0-100) /uL PT (10.1-12.7) SECONDS INR (0.9-1.3) APTT (26.4-36.2) SECONDS Sodium (137-145) mmol/L Potassium (3.4-5.1) mmol/L Chloride (98-107) mmol/L Carbon Dioxide (22-32) mmol/L BUN (7-17) mg/dL Creatinine (0.52-1.04) mg/dL Estimated GFR (>60) mL/min BUN/Creatinine Ratio (6-22) Glucose (80-110) mg/dL Calcium (8.4-10.2) mg/dL Total Bilirubin (0.2-1.3) mg/dL AST (14-36) IU/L ALT (<35) IU/L Alkaline Phosphatase (38-126) U/L Total Protein (6.3-8.2) g/dL Albumin (3.5-5.0) g/dL Globulin (1.7-4.1) g/dL Albumin/Globulin Ratio (1.0-2.8) Blood Type B Positive Antibody Screen Negative Imaging Data Hip x-ray: Radiologist's Impression: Mildly displaced periprosthetic fracture of the proximal left femur. The patient's x-ray is safe to an a chart to be emerged. I spoke with registration and radiology regarding importing the x-ray into the correct chart MDM Narrative Medical decision making narrative: The patient is a 69-year-old female who presents with a chief complaint of hip pain after ground level fall onto her left hip. She declines any further imaging beyond her hip. She has a periprosthetic fracture. She is neurovascularly intact. I spoke with Dr. Draper, I will call [facility] who recommended admission under Medicine and stated he would follow-up with the patient. I spoke with Dr. Gong who kindly accepted the patient for admission. I discussed with the patient the plan for Dr. Salamanca to do surgery on Wednesday as waiting for more equipment. She appears to have no other injuries, is tolerating her pain with a single dose of morphine. She denies any other injuries. She was neurovascularly intact. She states understanding and has no questions or concerns regarding her admission <Ros Pop MD - Last Filed: 02/29/20 18:17> Lab Data Labs: Lab Results 02/28/20 02/28/20 02/28/20 Range/Units 18:05 18:05 18:05 WBC 11.3 H (4.5-11.0) X10^3/uL RBC 4.26 (4.0-5.2) X10^6/uL Hgb 12.9 (12.0-16.0) g/dL Hct 38.5 (36-46) % MCV 90.4 (80-100) fL MCH 30.2 (26-34) PG MCHC 33.4 (30-36) % RDW 13.4 (11.6-14.8) % Plt Count 265 (150-400) X10^3/uL Neut % (Auto) 82.2 H (50-75) % Lymph % (Auto) 9.5 L (25-40) % Dundy % (Auto) 6.2 (3-14) % Eos % (Auto) 1.9 L (2-4) % Baso % (Auto) 0.2 (0-2) % Neut # (Auto) 9300 H (5751-8874) /uL Lymph # (Auto) 1100 (2172-5172) /uL Dundy # (Auto) 700 (0-900) /uL Eos # (Auto) 200 (0-450) /uL Baso # (Auto) 0 (0-100) /uL PT 11.1 (10.1-12.7) SECONDS INR 1.0 (0.9-1.3) APTT 29 (26.4-36.2) SECONDS Sodium 137 (137-145) mmol/L Potassium 3.5 (3.4-5.1) mmol/L Chloride 104 (98-107) mmol/L Carbon Dioxide 25 (22-32) mmol/L BUN 16 (7-17) mg/dL Creatinine 0.79 (0.52-1.04) mg/dL Estimated GFR > 60.0 (>60) mL/min BUN/Creatinine Ratio 20.3 (6-22) Glucose 112 H (80-110) mg/dL Calcium 9.5 (8.4-10.2) mg/dL Total Bilirubin 0.4 (0.2-1.3) mg/dL AST 32 (14-36) IU/L ALT 22 (<35) IU/L Alkaline Phosphatase 96 (38-126) U/L Total Protein 7.5 (6.3-8.2) g/dL Albumin 4.4 (3.5-5.0) g/dL Globulin 3.1 (1.7-4.1) g/dL Albumin/Globulin Ratio 1.4 (1.0-2.8) Blood Type Antibody Screen 02/28/20 Range/Units 18:05 WBC (4.5-11.0) X10^3/uL RBC (4.0-5.2) X10^6/uL Hgb (12.0-16.0) g/dL Hct (36-46) % MCV (80-100) fL MCH (26-34) PG MCHC (30-36) % RDW (11.6-14.8) % Plt Count (150-400) X10^3/uL Neut % (Auto) (50-75) % Lymph % (Auto) (25-40) % Dundy % (Auto) (3-14) % Eos % (Auto) (2-4) % Baso % (Auto) (0-2) % Neut # (Auto) (8195-9261) /uL Lymph # (Auto) (5289-5641) /uL Dundy # (Auto) (0-900) /uL Eos # (Auto) (0-450) /uL Baso # (Auto) (0-100) /uL PT (10.1-12.7) SECONDS INR (0.9-1.3) APTT (26.4-36.2) SECONDS Sodium (137-145) mmol/L Potassium (3.4-5.1) mmol/L Chloride (98-107) mmol/L Carbon Dioxide (22-32) mmol/L BUN (7-17) mg/dL Creatinine (0.52-1.04) mg/dL Estimated GFR (>60) mL/min BUN/Creatinine Ratio (6-22) Glucose (80-110) mg/dL Calcium (8.4-10.2) mg/dL Total Bilirubin (0.2-1.3) mg/dL AST (14-36) IU/L ALT (<35) IU/L Alkaline Phosphatase (38-126) U/L Total Protein (6.3-8.2) g/dL Albumin (3.5-5.0) g/dL Globulin (1.7-4.1) g/dL Albumin/Globulin Ratio (1.0-2.8) Blood Type B Positive Antibody Screen Negative Discharge Plan Departure Patient Disposition: Admitted As Inpatient Clinical Impression: Periprosthetic fracture of proximal end of femur Discharge Date/Time: 02/28/20 19:46 Admit Date/Time: 02/28/20 19:28 Admit Provider: Cheyenne Gong <Ros Pop MD - Last Filed: 02/29/20 18:17> Cosign ED Attending Cosignature Attestation: I was immediately available in the department for consultation throughout this patient's visit. I agree with documentation as above. Ros Pop MD
[2020-02-28 18:23] LABS: Prothrombin Time 11.1 SECONDS (10.1-12.7)
[2020-02-28 18:26] LABS: Alanine Aminotransferase 22 IU/L (<35); Albumin 4.4 g/dL (3.5-5.0); Albumin Globulin Ratio 1.4 (1.0-2.8); Alkaline Phosphatase 96 U/L (38-126); Aspartate Aminotransferase 32 IU/L (14-36); BUN Creatinine Ratio 20.3 (6-22); Bilirubin Total 0.4 mg/dL (0.2-1.3); Blood Urea Nitrogen 16 mg/dL (7-17); Calcium 9.5 mg/dL (8.4-10.2); Carbon Dioxide 25 mmol/L (22-32); Chloride 104 mmol/L (98-107); Estimated Glomerular Filt Rate > 60.0 mL/min (>60); Globulin 3.1 g/dL (1.7-4.1); Glucose 112 mg/dL (80-110); HEMOLYSIS < 15 (0-50); PTT Partial Thromboplastin Tim 29 SECONDS (26.4-36.2); Potassium 3.5 mmol/L (3.4-5.1); Sodium 137 mmol/L (137-145); Total Protein 7.5 g/dL (6.3-8.2)
[2020-02-28 18:32] LABS: Add Manual Diff / Slide Review NO; Basophils Absolute Auto 0 /uL (0-100); Basophils Percent Auto 0.2 % (0-2); Eosinophils Absolute Auto 200 /uL (0-450); Eosinophils Percent Auto 1.9 % (2-4); Hematocrit 38.5 % (36-46); Hemoglobin 12.9 g/dL (12.0-16.0); Lymphocytes Absolute Auto 1100 /uL (1100-4500); Lymphocytes Percent Auto 9.5 % (25-40); Mean Corpuscular HGB Conc 33.4 % (30-36); Mean Corpuscular Hemoglobin 30.2 PG (26-34); Mean Corpuscular Volume 90.4 fL (80-100); Monocytes Absolute Auto 700 /uL (0-900); Monocytes Percent Auto 6.2 % (3-14); Neutrophils Absolute Auto 9300 /uL (1500-7000); Neutrophils Percent Auto 82.2 % (50-75); Platelet Count 265 X10^3/uL (150-400); Red Blood Cell Count 4.26 X10^6/uL (4.0-5.2); Red Cell Distribution Width 13.4 % (11.6-14.8); White Blood Cell Count 11.3 X10^3/uL (4.5-11.0)
[2020-02-28] MEDS: MORPHINE 2 MG/ML INJ IV (19:00)
[2020-02-28] MEDS: SODIUM CHLORIDE 0.9% 1,000 ML 150 ML IV (19:00)
[2020-02-28 19:11] VITALS: BP 156/76; PULSE 62; RESP 16; O2SAT 99
[2020-02-28 19:35] VITALS: BP 133/86; PULSE 70; RESP 24; TEMP 36.7; O2SAT 100
--- NOTE | 2020-02-28 19:49 | P.HP_ITS ---
History of Present Illness History of Present Illness Date Patient Seen: 02/28/20 Time Patient Seen: 19:49 Chief complaint: Hip Pain Narrative: This is a 69 year old female who fell at home fracturing the left hip just below her prosthetic hip replacement. She was pruning trees in her yard when her right foot caught on her branch so she swung her left leg to recover her balance and fell to the ground. Her hip replacement was quite recent 01/[address] Madeline Salamanca. She has no current medical symptoms, uses CPAP for FRANNIE and several medications for Seasonal Allergies. Her initial lab workup is normal. She is in a great deal of pain with her left leg noticeably shorter than the right leg (her left leg had been slightly longer than the right after the recent hip replacement). Patient History Medical History Arthritis (Acute) Cervical nerve root impingement (Acute) Chronic cough (Acute) Edema (Acute) Insomnia (Chronic) Lumbar nerve root impingement (Acute) Numbness (Acute) Obstructive sleep apnea of adult (Chronic) Osteoarthritis (Acute) Palpitations (Acute) Seasonal allergies (Acute) Sinusitis (Acute) Snoring (Inactive) Thoracic nerve root impingement (Acute) Surgical History (Updated 02/28/20 @ 20:17 by Kathy Hamilton MD) History of hip replacement (Acute) History of total right hip arthroplasty (Acute ~2013) Hx of arthroscopy of left knee (Acute) Hx of dilation and curettage (Acute ~1968) Hx of left breast biopsy (Acute) Hx of tonsillectomy (Acute) S/P excision of lipoma (Acute ~2015) Status post epidural steroid injection (Acute) Family & Social History Social History: household members children Tobacco & Substance use: Smoking Status Never smoker alcohol intake current alcohol intake frequency 0-2 drinks per day Substance Use Type does not use Comment: Her backup decision maker is her son Jareth Stevens Home Medications and Allergies Home Medications Medication Instructions Recorded Confirmed Type levocetirizine 5 mg tablet 5 mg PO BEDTIME 10/27/18 12/26/19 History Resmed Aircurve 10 BIPAP #1 ea 05/03/19 05/03/19 History azelastine 2 spray INTRANASAL BEDTIME 12/19/19 12/26/19 History acetaminophen 500 mg PO Q4H PRN #60 tab 02/12/20 02/11/20 Rx aspirin 81 mg PO BID #90 tab 12/27/19 Rx ibuprofen 200 mg PO Q4H PRN #60 tab 12/27/19 Rx Allergies Allergy/AdvReac Type Severity Reaction Status Date / Time Sulfa (Sulfonamide Allergy Severe RASH Verified 12/26/19 10:02 Antibiotics) adhesive tape Allergy Mild Rash Verified 12/26/19 10:02 amoxicillin [From Augmentin] AdvReac Severe GI UPSET Verified 12/26/19 10:02 clavulanic acid AdvReac Severe GI UPSET Verified 12/26/19 10:02 [From Augmentin] lactose AdvReac Mild LACTOSE Verified 12/26/19 10:02 INTOLERANCE vancomycin [VANCOMYCIN] AdvReac Mild became red Verified 12/26/19 10:02 with infusion. allergy versus red man syndrome Review of Systems Review of Systems Narrative: Positive for left hip pain. Positive for anxiety and distress. Negative for fevers, chills, sweats, cough, headache, chest pain, shortness of breath, nausea, vomiting, diarrhea, bleeding, rash, dysuria, seizures, sore throat, new allergies, difficulty talking. ROS: Yes All systems reviewed with the patient and are negative except as otherwise documented Exam Vital Signs (past 8 hours): - 02/28/20 17:10 02/28/20 17:43 02/28/20 19:11 Temperature 97.5 F L Pulse Rate 60 62 Pulse Rate [Left Dorsalis Pedis] 82 Respiratory Rate 22 16 Blood Pressure 183/103 H Blood Pressure [Left Arm] 156/76 H Pulse Oximetry 100 99 Oxygen Delivery Method Room Air Narrative Exam Narrative: She is alert and oriented x3, in significant distress form left hip pain flared by recent transfer to the hospital bed. Pupils are equally round reactive to accommodation. Extraocular muscles are intact. Sclerae are pink and nonicteric. Throat looks normal. No lymph nodes are felt head, neck, supraclavicular area. There is no thyromegaly. No carotid bruits are heard. JVD is less than 6 cm. Heart is regular rate and rhythm without murmur. Lungs are clear to auscultation bilaterally. Abdomen is soft, bowel sounds positive, 90s tender, mildly distended. No organomegaly. Extremities have no ankle edema. Pulses are present bilaterally in the feet. The left leg is slightly shorter than the right leg. She is tender over the left anterior hip without discernible swelling or step- off. Neuro exam. Cranial nerves 2-12 tested intact. There is no tremor. Deep tender reflexes are symmetric. Gait and balance cannot be tested. Motor function appears to be symmetric and intact bilaterally. Skin has no rash or jaundice. Objective Labs Result Diagrams: 02/28/20 18:05 02/28/20 18:05 Labs: Laboratory Results - last 24 hr 02/28/20 02/28/20 02/28/20 18:05 18:05 18:05 WBC 11.3 H RBC 4.26 Hgb 12.9 Hct 38.5 MCV 90.4 MCH 30.2 MCHC 33.4 RDW 13.4 Plt Count 265 Neut % (Auto) 82.2 H Lymph % (Auto) 9.[address] [place] % (Auto) 6.2 Eos % (Auto) 1.9 L Baso % (Auto) 0.2 Neut # (Auto) 9300 H Lymph # (Auto) 1100 [place] # (Auto) 700 Eos # (Auto) 200 Baso # (Auto) 0 PT 11.1 INR 1.0 APTT 29 Sodium 137 Potassium 3.5 Chloride 104 Carbon Dioxide 25 BUN 16 Creatinine 0.79 Estimated GFR > 60.0 BUN/Creatinine Ratio 20.3 Glucose 112 H Calcium 9.5 Total Bilirubin 0.4 AST 32 ALT 22 Alkaline Phosphatase 96 Total Protein 7.5 Albumin 4.4 Globulin 3.1 Albumin/Globulin Ratio 1.4 Blood Type Antibody Screen 02/28/20 18:05 WBC RBC Hgb Hct MCV MCH MCHC RDW Plt Count Neut % (Auto) Lymph % (Auto) [place] % (Auto) Eos % (Auto) Baso % (Auto) Neut # (Auto) Lymph # (Auto) [place] # (Auto) Eos # (Auto) Baso # (Auto) PT INR APTT Sodium Potassium Chloride Carbon Dioxide BUN Creatinine Estimated GFR BUN/Creatinine Ratio Glucose Calcium Total Bilirubin AST ALT Alkaline Phosphatase Total Protein Albumin Globulin Albumin/Globulin Ratio Blood Type B Positive Antibody Screen Negative Assessment & Plan Assessment & Plan narrative: Left Hip Periprosthetic Fracture - Plan orthopedic consult 02/28 and probable ORIF on 03/[address] Draper or his partner - Regular diet pending NPO on 02/28 midnight, IVF 75ml/h D5NS - CBC and BMP am 02/28 - Lovenox for DVT prevention AM 02/28 X 1 Obstructive Sleep Apnea - Continue CPAP home settings Seasonal allergies - Continue antihistamines as needed Discharge Planning - COVID 19 testing for SNF placement only - She was able to return home for rehab after her hip replacement 01/04
[2020-02-28] MEDS: HYDROMORPHONE 1 MG INJ IV ×2 (20:00→22:07)
[2020-02-28 20:38] VITALS: BMI 29.5
[2020-02-28] MEDS: DEXTROSE 5%-0.9% NS 1,000 ML 75 ML IV (20:48)
[2020-02-28] MEDS: HYDROCODONE/ACET 5/325 TABLET 1 TAB PO (20:48)
[2020-02-28] MEDS: DOCUSATE 100 MG CAPSULE PO (22:08)
[2020-02-28] MEDS: hydrOXYzine pamoate 25 MG CAPSULE 50 MG PO (22:46)
[2020-02-28 23:00] VITALS: BP 128/70; PULSE 73; RESP 16; TEMP 36.3; O2SAT 97
--- NOTE | 2020-02-28 23:15 | PC.NURSE ---
Pt to room from ER. Transfer via slider board. C/o significant pain with repositioning. Pursed-lip breathing, guarding left hip. MD at bedside. Verbal order to given 1mg dilaudid now. Unable to orient to room and routine at this time r/t pain and difficulty concentrating. 2199 - MD notified that pain persists and pt making statements it won't release and grabbing. Request for muscle relaxer. Order obtained. 2244 - Reinforced orientation to room and routine. Educated to skin integrity and repositioning when pain is controlled. Currently declines to wear SCD's. Call light in reach. Bed alarm on. RT notified to assist pt with C-pap set up.
[2020-02-29] MEDS: HYDROCODONE/ACET 5/325 TABLET 1 TAB PO ×3 (01:15→08:06)
[2020-02-29] MEDS: hydrOXYzine pamoate 25 MG CAPSULE 50 MG PO (04:37)
[2020-02-29 05:33] LABS: Add Manual Diff / Slide Review NO; Basophils Absolute Auto 0 /uL (0-100); Basophils Percent Auto 0.4 % (0-2); Eosinophils Absolute Auto 300 /uL (0-450); Eosinophils Percent Auto 3.8 % (2-4); Hematocrit 35.1 % (36-46); Hemoglobin 11.6 g/dL (12.0-16.0); Lymphocytes Absolute Auto 1600 /uL (1100-4500); Lymphocytes Percent Auto 21.8 % (25-40); Mean Corpuscular HGB Conc 32.9 % (30-36); Mean Corpuscular Hemoglobin 30.1 PG (26-34); Mean Corpuscular Volume 91.6 fL (80-100); Monocytes Absolute Auto 900 /uL (0-900); Neutrophils Absolute Auto 4500 /uL (1500-7000); Platelet Count 242 X10^3/uL (150-400); Red Blood Cell Count 3.83 X10^6/uL (4.0-5.2); Red Cell Distribution Width 13.4 % (11.6-14.8); White Blood Cell Count 7.3 X10^3/uL (4.5-11.0)
[2020-02-29 05:42] VITALS: BP 131/76; PULSE 76; RESP 16; TEMP 36.7; O2SAT 99
[2020-02-29 05:44] LABS: BUN Creatinine Ratio 20.6 (6-22); Blood Urea Nitrogen 14 mg/dL (7-17); Carbon Dioxide 28 mmol/L (22-32); Chloride 104 mmol/L (98-107); Estimated Glomerular Filt Rate > 60.0 mL/min (>60); Glucose 131 mg/dL (80-110); HEMOLYSIS < 15 (0-50); Potassium 4.4 mmol/L (3.4-5.1); Sodium 136 mmol/L (137-145)
[2020-02-29] MEDS: ENOXAPARIN 40 MG/0.4 ML SYRINGE SUBCUT (08:05)
[2020-02-29] MEDS: DOCUSATE 100 MG CAPSULE PO ×2 (08:06→19:56)
--- NOTE | 2020-02-29 08:17 | PM.PN.1 ---
Subjective Subjective Date Patient Seen: 02/29/20 Interval history: Brady Gallegos is a 69-year-old female with a past medical history significant for FRANNIE on CPAP, osteoarthritis, and seasonal allergies who presented after ground level fall with inability to walk and subsequently found to have a left periprosthetic hip fracture. The patient is resting comfortably in bed. She reports her left lower extremity pain is a +4/10 without movement and increases to a +8/10 with any movement or angulation of upper torso. She reports her muscle spasms have improved since cyclobenzaprine was added this morning. She has no other complaints and denies headache, chest pain, cough, shortness of breath, abdominal pain, nausea, vomiting, fever, chills, dysuria, diarrhea or constipation. She is voiding via Kidd catheter and had a bowel movement yesterday. A bowel regimen has been implemented to avoid narcotic induced constipation. She has a good appetite and will be NPO midnight for surgical intervention tomorrow. Exam Vital Signs (past 8 hours): - 02/29/20 05:42 Temperature 98.0 F Pulse Rate 76 Respiratory Rate 16 Blood Pressure 131/76 Pulse Oximetry 99 Oxygen Delivery Method Room Air Oxygen Flow Rate 0 Narrative Exam Narrative: General: Elderly female lying in bed and in no acute distress, appears stated age well-developed, well-nourished, appropriately interactive. HEENT: Normocephalic, atraumatic. External ears without defect. Pupils equal, round, and reactive to light. Anicteric sclerae, moist conjunctivae, and no lid lag. Oropharynx free of erythema and cobble stoning with moist mucosa. Neck: Supple with full range of motion. No lymphadenopathy or thyromegaly. Cardiovascular: Regular rate and rhythm without murmurs, rubs, or gallops appreciated. Pulmonary: Clear to auscultation bilaterally without crackles, wheezes, or rhonchi. Normal respiratory effort with no use of accessory muscles. Abdomen: Soft, bowel sounds present, nontender, nondistended. No hepatosplenomegaly or masses appreciated. Extremities: Left leg shortened without obvious deformity, edema or erythema with distal pulses and movement intact. No clubbing, cyanosis, or edema of other extremities. Skin: Normal temperature, turgor, and texture; no rash, ulcers, or subcutaneous nodules appreciated. Neurological: Cranial nerves grossly intact. Psychiatric: Normal mood and affect. Alert and oriented to person, place, and time. Objective Labs Result Diagrams: 02/29/20 05:20 02/29/20 05:20 Labs: Laboratory Results - last 24 hr 02/28/20 02/28/20 02/28/20 18:05 18:05 18:05 WBC 11.3 H RBC 4.26 Hgb 12.9 Hct 38.5 MCV 90.4 MCH 30.2 MCHC 33.4 RDW 13.4 Plt Count 265 Neut % (Auto) 82.2 H Lymph % (Auto) 9.5 L [place] % (Auto) 6.2 Eos % (Auto) 1.9 L Baso % (Auto) 0.2 Neut # (Auto) 9300 H Lymph # (Auto) 1100 [place] # (Auto) 700 Eos # (Auto) 200 Baso # (Auto) 0 PT 11.1 INR 1.0 APTT 29 Sodium 137 Potassium 3.5 Chloride 104 Carbon Dioxide 25 BUN 16 Creatinine 0.79 Estimated GFR > 60.0 BUN/Creatinine Ratio 20.3 Glucose 112 H Calcium 9.5 Total Bilirubin 0.4 AST 32 ALT 22 Alkaline Phosphatase 96 Total Protein 7.5 Albumin 4.4 Globulin 3.1 Albumin/Globulin Ratio 1.4 Blood Type Antibody Screen 02/28/20 02/29/20 02/29/20 18:05 05:20 05:20 WBC 7.3 RBC 3.83 L Hgb 11.6 L Hct 35.1 L MCV 91.6 MCH 30.1 MCHC 32.9 RDW 13.4 Plt Count 242 Neut % (Auto) 62.0 D Lymph % (Auto) 21.8 L [place] % (Auto) 12.0 Eos % (Auto) 3.8 Baso % (Auto) 0.4 Neut # (Auto) 4500 Lymph # (Auto) 1600 [place] # (Auto) 900 Eos # (Auto) 300 Baso # (Auto) 0 PT INR APTT Sodium 136 L Potassium 4.4 Chloride 104 Carbon Dioxide 28 BUN 14 Creatinine 0.68 Estimated GFR > 60.0 BUN/Creatinine Ratio 20.6 Glucose 131 H Calcium 9.0 Total Bilirubin AST ALT Alkaline Phosphatase Total Protein Albumin Globulin Albumin/Globulin Ratio Blood Type B Positive Antibody Screen Negative Assessment & Plan Assessment & Plan narrative: Brady Gallegos is a 69-year-old female with a past medical history significant for FRANNIE on CPAP, osteoarthritis, and seasonal allergies who presented after ground level fall with left periprosthetic hip fracture. 1. Acute left periprosthetic hip fracture, present on admission. Active. -Patient presented after ground level fall withleft lower extremity pain and inability to ambulate. -Left hip x-ray demonstrated mildly displaced periprosthetic fracture of the proximal left femur. -Patient is being ruled out for COVID-19 for possible senior living facility placement for rehabilitation, pending. -Consulted orthopedic surgery, Dr. Draper, and his partner Dr. Salamanca who performed previous left hip replacement in December of this year will plan to repair the left periprosthetic fracture tomorrow. NPO at midnight. -Continue pain control with acetaminophen 975 mg 3 times daily for mild pain, cyclobenzaprine 5 mg every 8 hours as needed for muscle spasm, oxycodone 2.5-5 mg every 3 hours as needed for moderate to severe pain, and morphine 1-2 mg IV every 4 hours as needed for severe breakthrough pain pain. -Continue calcium and vitamin-D supplementation. Patient will need outpatient treatment of osteoporosis. 2. Obstructive sleep apnea on CPAP, chronic, present on admission. Stable. -Continue home CPAP per RT protocol. 3. Seasonal allergies, chronic, present on admission. Stable. -Continue fexofenadine 180 mg daily and Flonase 1 spray intranasal at bedtime. Code status: Full code DVT prophylaxis: SCD on right leg and Lovenox x1 dose and has been discontinued. Disposition: Patient remains hospitalized pending orthopedic surgical intervention and will likely need senior living facility for continued rehabilitation at time of discharge. Quality VTE Deep Vein Thrombosis/Pulmonary Embolism Present on Admission: No
[2020-02-29 08:35] VITALS: BP 143/67; PULSE 72; RESP 16; O2SAT 98
[2020-02-29] MEDS: polyethylene glycoL 3350 17 GM POWD.PACK PO (09:10)
[2020-02-29] MEDS: ACETAMINOPHEN 325 MG TABLET 975 MG PO ×3 (09:10→19:55)
[2020-02-29] MEDS: CYCLOBENZAPRINE 5 MG TABLET PO ×2 (09:30→17:33)
--- NOTE | 2020-02-29 09:57 | P.CONS_ITS ---
History of Present Illness Consult details Date Patient Seen: 02/29/20 Time Patient Seen: 09:57 Chief complaint: Hip Pain Reason for consult: Left hip periprosthetic fracture Requesting provider: Cheyenne Gong Narrative: 69-year-old female who had a left total hip replacement with Dr. Salamanca on 12/26/2019. She was doing well and was in her garden yesterday. She tripped and fell down and had immediate pain. She was unable to walk. She was brought into the emergency room and found to have a periprosthetic fracture. She denies any prodromal shortness of breath, chest pain, or dizziness. She just tripped and fell down with a ground level fall. She did not hit her head or lose consciousness. She had no pain elsewhere. The pain goes from the groin all the way down to the knee on the left leg. No numbness or tingling. Meds Home Medications and Allergies Home Medications Medication Instructions Recorded Confirmed Type Resmed Aircurve 10 BIPAP #1 ea 05/03/19 05/03/19 History acetaminophen 500 mg PO Q4H PRN #60 tab 12/27/19 02/28/20 Rx aspirin 81 mg PO DAILY 02/28/20 02/28/20 History fexofenadine [Olivia Allergy] 180 mg PO DAILY 02/28/20 02/28/20 History fluticasone propionate [Flonase 1 spray INTRANASAL BEDTIME 02/28/20 02/28/20 History Allergy Relief] naproxen sodium [Aleve] 220 mg PO BID PRN 02/28/20 02/28/20 History Allergies Allergy/AdvReac Type Severity Reaction Status Date / Time Sulfa (Sulfonamide Allergy Severe RASH Verified 12/26/19 10:02 Antibiotics) adhesive tape Allergy Mild Rash Verified 12/26/19 10:02 amoxicillin [From Augmentin] AdvReac Severe GI UPSET Verified 12/26/19 10:02 clavulanic acid AdvReac Severe GI UPSET Verified 12/26/19 10:02 [From Augmentin] lactose AdvReac Mild LACTOSE Verified 12/26/19 10:02 INTOLERANCE vancomycin [VANCOMYCIN] AdvReac Mild became red Verified 12/26/19 10:02 with infusion. allergy versus red man syndrome Exam Vital Signs (past 8 hours): - 02/29/20 05:42 02/29/20 08:35 Temperature 98.0 F Pulse Rate 76 72 Respiratory Rate 16 16 Blood Pressure 131/76 143/67 H Pulse Oximetry 99 98 Oxygen Delivery Method Room Air Oxygen Flow Rate 0 Const Orientation: alert and oriented x3 Resp Auscultation: clear to auscultation bilaterally Cardio Rate: regular rate Rhythm: regular rhythm Extrem Other: Left leg well healed incision. Intact integument. Soft calf, easily wiggles toes, 1+ dorsalis pedis pulse. Pain with any attempted motion in the leg. Objective Imaging Left hip x-ray: My impression: Left total hip arthroplasty with a periprosthetic fracture going through the level of the prosthesis itself Labs Result Diagrams: 02/29/20 05:20 02/29/20 05:20 Labs: Laboratory Results - last 24 hr 02/28/20 02/28/20 02/28/20 18:05 18:05 18:05 WBC 11.3 H RBC 4.26 Hgb 12.9 Hct 38.5 MCV 90.4 MCH 30.2 MCHC 33.4 RDW 13.4 Plt Count 265 Neut % (Auto) 82.2 H Lymph % (Auto) 9.[address] [place] % (Auto) 6.2 Eos % (Auto) 1.9 L Baso % (Auto) 0.2 Neut # (Auto) 9300 H Lymph # (Auto) 1100 [place] # (Auto) 700 Eos # (Auto) 200 Baso # (Auto) 0 PT 11.1 INR 1.0 APTT 29 Sodium 137 Potassium 3.5 Chloride 104 Carbon Dioxide 25 BUN 16 Creatinine 0.79 Estimated GFR > 60.0 BUN/Creatinine Ratio 20.3 Glucose 112 H Calcium 9.5 Total Bilirubin 0.4 AST 32 ALT 22 Alkaline Phosphatase 96 Total Protein 7.5 Albumin 4.4 Globulin 3.1 Albumin/Globulin Ratio 1.4 Blood Type Antibody Screen 02/28/20 02/29/20 02/29/20 18:05 05:20 05:20 WBC 7.3 RBC 3.83 L Hgb 11.6 L Hct 35.1 L MCV 91.6 MCH 30.1 MCHC 32.9 RDW 13.4 Plt Count 242 Neut % (Auto) 62.0 D Lymph % (Auto) 21.[address] % (Auto) 12.0 Eos % (Auto) 3.8 Baso % (Auto) 0.4 Neut # (Auto) 4500 Lymph # (Auto) 1600 [place] # (Auto) 900 Eos # (Auto) 300 Baso # (Auto) 0 PT INR APTT Sodium 136 L Potassium 4.4 Chloride 104 Carbon Dioxide 28 BUN 14 Creatinine 0.68 Estimated GFR > 60.0 BUN/Creatinine Ratio 20.6 Glucose 131 H Calcium 9.0 Total Bilirubin AST ALT Alkaline Phosphatase Total Protein Albumin Globulin Albumin/Globulin Ratio Blood Type B Positive Antibody Screen Negative Assessment & Plan Assessment & Plan narrative: Periprosthetic left hip fracture. I reviewed her imaging with Dr. Salamanca who plans on revising the surgery with a long prosthesis tomorrow. We will get an SCD on her right leg. Some diazepam for muscle spasms. She is typed and screened already. NPO after midnight
[2020-02-29] MEDS: OXYCODONE IR 5 MG TABLET PO ×3 (11:13→17:33)
[2020-02-29] MEDS: DEXTROSE 5%-0.9% NS 1,000 ML 75 ML IV (11:13)
[2020-02-29 11:30] VITALS: BP 124/68; PULSE 75; RESP 16; TEMP 37.1; O2SAT 96
--- NOTE | 2020-02-29 11:56 | CM.DANOTE ---
DCP: Case received, EMR reviewed and spoke to patient via phone. Introduced self and role. Was able to obtain baseline information from patient regarding baseline health and activity level. DCP assessment completed with information currently available. Patient is a 69 year old female who admitted yesterday evening to the care of the hospitalist/orthopedic team. PCP: Dr. Dan. Payer: confirmed: Medicare/[employer]. Patient came to the hospital via ambulance secondary to a ground level fall, and complaints of left sided hip pain. Patient has history of prostetic hip surgery in December. Patient currently holds diagnosis of periprosthetic fracture of left hip. Confirmed that patient resides in [place] with her son, Jareth. She is independent, employed at [employer]. She was out gardening, and sustained a ground level fall. Spoke to patient in her room regarding discharge planning, and potential for long term need. Patient stated, I would really rather go home, for my sister, Christie, was able to help me at home after my last surgery. Discussed plan B, and asked patient if skilled is recommended, which facility she would wish to go to. Stated, if she has to go, she would prefer [facility]. Gave permission to sent referral to [facility]. Spoke to Cecy in admissions at [facility], and gave her information on patient if she needs long term. She will review. P: DCP to continue to follow closely. Will see how she does after surgery, and if skilled will be needed. Mariela Mccray RN/Cosmetic Sales Advisor
[2020-02-29 15:25] VITALS: BP 132/75; PULSE 75; RESP 17; TEMP 36.8; O2SAT 98
[2020-02-29] MEDS: CALCIUM CARB/VIT D3 500/200 TABLET 1 EACH PO (17:33)
--- NOTE | 2020-02-29 19:22 | PC.NURSE ---
Addendum entered by Linda Rapp R.N. 02/29/20 22:38: Pt's LLE no longer rotated inward, but is shortened. Equally warm and pink extremities. Addendum entered by Linda Rapp R.N. 02/29/20 22:24: Requests assistance to move LLE into neutral position. This was gently done. Pillow between legs and utilizing bed function; slightly turned pt to right side. CPAP in place resting quietly in bed. No concerns or complaints verbalized. Ice to left hip which pt moves to left groin prn. Plan npo after midnight for surgery in a.m. No change in neurovascular status this evening shift. Original Note: Pt lying quietly in bed and reports spasms to left hip managed well with flexeril. Kidd to gravity. Encouraged pt to change positions and relieve pressure to buttocks as able. Pt provides return demonstration of moving RLE and buttocks. Ice to left hip/groin. Takes evening meal well. CPAP set up and provided to pt. SCD in place to RLE.
[2020-02-29 19:29] LABS: COVID19 Sendout Not Detected (Not Detect)
[2020-02-29] MEDS: FLUTICASONE 120 SPRAY/16 GM SPRAY.SUSP NASAL (19:56)
[2020-02-29] MEDS: SODIUM CHLORIDE 0.9% FLUSH 10 ML IV (19:57)
[2020-02-29 20:04] VITALS: BP 122/73; PULSE 70; RESP 16; TEMP 37.1; O2SAT 97
[2020-03-01] VITALS (14 sets, daily range): BP systolic 78–142; BP diastolic 44–82; PULSE 58–74; RESP 13–96; TEMP 36.3–36.9; O2SAT 18–100; BMI 29.5
--- NOTE | 2020-03-01 | DI.RAD.S_ITS ---
PROCEDURE: XR PEL MIN 3V INDICATIONS: HIP REVISION TECHNIQUE: 3 view(s) of the pelvis and hip on the left acquired. COMPARISON: [facility], CR, XR HIP W PEL IF DONE LT 2V, 02/28/2020, 17:09. [facility], CR, XR HIP W PEL IF DONE LT 2V, 03/01/2020, 12:22. [facility], JULITO, XR PELVIS 1-2V, 12/26/2019, 13:16. [facility], JULITO, PELVIS W UNILATERAL HIP RIGHT, 05/31/2014, 10:54. FINDINGS: Bones: No previously identified fractures or dislocations. No suspicious bony lesions. Cerclage wires have been placed surrounding a [place] bone fracture traversing along the femoral components of the left total hip arthroplasty previously present. Soft tissues: Visualized bowel gas pattern is normal. No suspicious soft tissue calcifications. IMPRESSION: Cerclage wire fracture fixation around the newly placed total left hip arthroplasty. Dictated by: Brady Bridges M.D. on 03/01/2020 at 13:16 Approved by: Brady Bridges M.D. on 03/01/2020 at 13:18
[2020-03-01] MEDS: CYCLOBENZAPRINE 5 MG TABLET PO (01:25)
[2020-03-01 05:18] LABS: Add Manual Diff / Slide Review NO; Basophils Absolute Auto 0 /uL (0-100); Basophils Percent Auto 0.4 % (0-2); Eosinophils Absolute Auto 500 /uL (0-450); Eosinophils Percent Auto 7.2 % (2-4); Hematocrit 35.9 % (36-46); Hemoglobin 11.9 g/dL (12.0-16.0); Lymphocytes Absolute Auto 1200 /uL (1100-4500); Lymphocytes Percent Auto 17.7 % (25-40); Mean Corpuscular HGB Conc 33.1 % (30-36); Mean Corpuscular Hemoglobin 30.3 PG (26-34); Mean Corpuscular Volume 91.4 fL (80-100); Monocytes Absolute Auto 600 /uL (0-900); Monocytes Percent Auto 9.3 % (3-14); Neutrophils Absolute Auto 4400 /uL (1500-7000); Neutrophils Percent Auto 65.4 % (50-75); Platelet Count 224 X10^3/uL (150-400); Red Blood Cell Count 3.93 X10^6/uL (4.0-5.2); Red Cell Distribution Width 13.7 % (11.6-14.8); White Blood Cell Count 6.7 X10^3/uL (4.5-11.0)
[2020-03-01] MEDS: LACTATED RINGERS 1,000 ML 42 ML IV (07:25)
--- NOTE | 2020-03-01 07:30 | PM.OP.1 ---
Operative Date/Time/Diagnoses Date of procedure: 03/01/20 Time of procedure: 08:30 Pre-op diagnosis: left proximal femur fracture,h/o left total hip arthroplasy Post-op diagnosis: same Procedure & Clinicians Procedure: left hip revision and ORIF left proximal femur Same procedure as scheduled: Yes Indications: The patient had a recent total hip replacement and then she fell he patient has requested revision of her femoral hip replacement. The risks, benefits and alternatives to surgery were discussed with the patient prior to proceeding. Risks discussed included, but were not limited to, failure to relieve pain, leg length discrepancy, dislocation, stiffness, infection, nerve damage, deep venous thrombosis, pulmonary embolism, stroke, coma, heart attack, permanent paralysis and , as well as the potential need for eventual rerevision of the prosthetic. Surgeon: Madeline Larsen Timber Repairer: Abdirashid Alejo Anesthesia Type: General and Spinal Operative Notes Findings: proximal femur fracture, good reduction, adequate bone Closure Type: primary Specimen(s): other (culture) Prosthetic devices, grafts, tissues, transplants, or devices: larsen and nephew redapt 16mm by 240 larsen and nephew, +4 by 32mm head Applied: drain(s) Estimated Blood Loss (mL): 250 Blood products transfused: none Procedure in detail: The patient was seen in the pre-operative area, where the patient identified the left hip as the operative site and this was marked with my initials. The patient received pre-operative antibiotics and was taken to the operating room and placed on the operative table in the right lateral decubitus position after satisfactory anesthesia. A full time paramedic out was performed. The left leg was prepared from the ankle to the iliac crest with ChloroPrep in the usual fashion and draped through sterile drapes. The hip was approached through an approximately 30 cm incision centered over the greater trochanter and curving gently posteriorly as it went proximally. This was carried sharply to the fascia carlos enrique, which was divided and retracted with a self retaining retractor. The trochanteric bursa was excised with care being taken to avoid the sciatic nerve, which was identified and protected throughout the case. The short external rotators were incised and the capsulomuscular flap was raised and tagged for later repair. The hip was dislocated, and the head was removed. Small osteotome was used to feet free around the proximal aspect of the femur and to remove the femoral stem. I did open a bur but did not have to do a significant amount of burring along the lateral border of the prosthesis. Multiple osteotomes were used to free around the proximal femur and then I placed the insertion device into the femoral component and attempted to remove it. It was still pretty stuck and it required additional Booth. Ventrally the proximal femoral component was removed without significant difficulty there was a small amount of early bony ingrowth especially along the anterior aspect of the femoral component. The fascia was incised distally and then the fascia around the vastus lateralis a posterior split was made and vastus lateralis was retracted anteriorly allowing exposure of the fracture. The comminuted femoral fracture was then meticulously reduced and held provisionally with 2 cables. Good quality reduction was achieved. I also placed a reduction clamp around the bone to further hold it and stabilize it and then we visualized the fracture and were very careful with any attempted external rotation of the femur in order to avoid distraction of the fracture site. A canal sound was placed down into the femur there was good palpation of the canal. The Reamer was used to ream up to a size 15 by 240 mm redapt stem. A trial reduction with a -3 by 32 mm head was done and it appeared that it was a little short it was pretty easily reducible with a -3. Fluoroscopy was brought in the fracture reduction appeared adequate the size 15 stem looked like we could likely go up 1 additional mm and it looked appropriately positioned and like there was adequate length and good position of the prosthesis with a 240 mm prosthesis. The canal was reamed up to 16 mm and the proximal femur was appropriately reamed with a size 1 and a size 2 Reamer for the metaphyseal block section and a trial neck was placed with a 16 mm stem. Intraoperative x-rays showed acceptable overall position adequate canal fell and acceptable leg length. The patient was stable in the position of sleep, of squatting, and could be put through a range of motion with 45 degrees internal rotation without dislocation. At 90 degrees flexion, internal rotation to 60 was possible before dislocation. This was felt to be satisfactory and the appropriate components were opened, and the trials were removed. The final stem was then impacted into the prepared femoral canal. A brief Betadine soak was performed while trialing with head options. The hip was meticulously irrigated with normal saline. An additional cerclage wire was placed around the proximal femur. It was specifically place more proximally around the femoral neck and under the vastus lateralis. It was carefully tensioned and then cut and crimped. It was carefully tightened. Finally the femoral head was impacted onto the stem. The acetabulum was cleared of all material and the hip relocated one final time. All of the cerclage wires distally were carefully tightened and checked. Final fluoroscopic view showed acceptable overall alignment and component position. The capsulomuscular flap was then repaired to the greater trochanter using the tag sutures. The short external rotators were repaired with a nonabsorbable suture. A deep drain was placed and brought out anteriorly. The vastus lateralis fascia was repaired with running Vicryl. The fascia carlos enrique was closed with Vicryl. The subcutaneous layer was closed with barbed sutures and skin rajendra. An alondra dressing was applied and the patient was taken to recovery having tolerated the procedure well. Complications: none Post-operative Condition: stable Disposition: Acute Care Plan for aftercare: The patient will be maintained on a standard total hip replacement protocol with weight bearing 100lbs. and posterior hip precautions. The patient will receive Aspirin and sequential compression devices for DVT prophylaxis. The patient will be discharged home when safe for the home environment.
[2020-03-01] MEDS: VANCOMYCIN 1,000 MG/200 ML PIGGYBACK 200 MG IV (08:00)
[2020-03-01] MEDS: CEFAZOLIN 2 GM/100 ML FROZ.PIGGY IV ×2 (08:55→16:10)
--- NOTE | 2020-03-01 09:04 | SUR.OPER ---
Lateral on padded OR bed. Gel axillary roll. Arms secured on padded armboard with pillow supporting top arm. Padded hip positioner braces x4 - anterior and posterior chest and pelvis. Additional gel pad used anterior pelvis. Gel pad under bottom leg from knee to foot and secured with tape over sheet.
[2020-03-01] MEDS: TRANEXAMIC ACID 1,000 MG VIAL 1000 MG IV ×2 (09:29→11:17)
[2020-03-01] MEDS: BUPIVACAINE 0.25% W/ EPI 30 ML VIAL 60 ML INJ (09:30)
[2020-03-01] MEDS: BUPIVACAINE LIPOSOME 266 MG/20 ML VIAL INJ (09:30)
--- NOTE | 2020-03-01 12:00 | CM.DPNOTE ---
DCP Cont: Reviewed chart. Patient discussed at multidisciplinary rounds this morning. Dr Gong suggests patient DC to SNF once medically cleared. Efforts already have been made to secure bed at [facility]. PASRR completed today. DC planning team will follow closely and continue to review DC options w/pt and family after therapy sessions post operatively. OLGA Morelos
--- NOTE | 2020-03-01 12:21 | DI.RAD.S_ITS ---
PROCEDURE: XR HIP W PEL IF DONE LT 2V INDICATIONS: POST OPERATIVE LEFT HIP REVISION TECHNIQUE: 2 view(s) of the hip acquired. COMPARISON: [facility], CR, XR HIP W PEL IF DONE LT 2V, 02/28/2020, 17:09. [facility], CR, XR HIP W PEL IF DONE LT 2V, 12/26/2019, 14:30. FINDINGS: Bones: Patient is status post left hip arthroplasty, with hardware components in expected positions and with cerclage wires establishing fracture fixation in this patient who had a prior short left total hip arthroplasty with [place] bone fracture documented 2 days ago along the left hip arthroplasty femoral margin. The hip joint appears congruent. The visualized bony structures appear intact. Soft tissues: Overlying postoperative changes are noted. No suspicious soft tissue densities. IMPRESSION: Normal anatomic alignment established after placement of new total left hip arthroplasty, and with cerclage wire fracture fixation along the margins of the femoral component of the new arthroplasty. Dictated by: Brady Bridges M.D. on 03/01/2020 at 13:18 Approved by: Brady Bridges M.D. on 03/01/2020 at 13:19
--- NOTE | 2020-03-01 13:01 | SUR.PHASEI ---
Addendum entered by Sunshine Layne R.N. 03/01/20 13:27: Update to GUILLERMO Shaikh. Pt remains pain free r/t recent spinal. VS stable. A/O. Transferred to room 219 in stable condition Original Note: Report to GUILLERMO Shaikh AC. Stable for transport to room 219.
--- NOTE | 2020-03-01 13:46 | P.PN_ITS ---
Subjective Subjective Date Patient Seen: 03/01/20 Interval history: Brady Gallegos is a 69-year-old female with a past medical history significant for FRANNIE on CPAP, osteoarthritis, and seasonal allergies who presented after ground level fall with inability to walk and subsequently found to have a left periprosthetic hip fracture. The patient is resting comfortably in bed recovering postoperatively. She reports mild abdominal bloating this morning prior to surgery which is now resolved. She has no complaints and denies headache, chest pain, cough, shortness of breath, abdominal pain, nausea, vomiting, fever, chills, dysuria, diarrhea or constipation. She is voiding via Kidd catheter. She has not had a bowel movement since admission and a bowel regimen has been implemented to avoid narcotic induced constipation. Exam Vital Signs (past 8 hours): - 03/01/20 07:45 03/01/20 12:18 03/01/20 12:22 Temperature 98.3 F 97.4 F L Pulse Rate 74 68 67 Respiratory Rate 20 13 14 Blood Pressure 142/82 H 88/49 L 78/44 L Pulse Oximetry 97 97 94 03/01/20 12:27 03/01/20 12:42 03/01/20 12:57 Temperature Pulse Rate 65 59 L 67 Respiratory Rate 15 96 H 13 Blood Pressure 82/44 L 87/51 L 99/56 L Pulse Oximetry 94 18 L 100 Oxygen Delivery Method Nasal Cannula Oxygen Flow Rate 1.5 Narrative Exam Narrative: General: Elderly female lying in bed and in no acute distress, appears stated age, well-developed, well-nourished, appropriately interactive. HEENT: Normocephalic, atraumatic. External ears without defect. Pupils equal, round, and reactive to light. Anicteric sclerae, moist conjunctivae, and no lid lag. Oropharynx free of erythema and cobble stoning with dry oral mucosa. Neck: Supple with full range of motion. No lymphadenopathy or thyromegaly. Cardiovascular: Regular rate and rhythm without murmurs, rubs, or gallops appreciated. Pulmonary: Clear to auscultation bilaterally without crackles, wheezes, or rhonchi. Normal respiratory effort with no use of accessory muscles. Abdomen: Soft, bowel sounds present, nontender, nondistended. No hepatosple nomegaly or masses appreciated. Extremities: Left hip/leg with dressing in place C/D/I and to drains with serosanguineous output. Distal left lower extremity pulses and movement intact. No clubbing, cyanosis, or edema of other extremities. Skin: Normal temperature, turgor, and texture; no rash, ulcers, or subcutaneous nodules appreciated. Neurological: Cranial nerves grossly intact. Psychiatric: Normal mood and affect. Alert and oriented to person, place, and time. Objective Labs Result Diagrams: 03/01/20 04:55 02/29/20 05:20 Labs: Laboratory Results - last 24 hr 02/28/20 03/01/20 18:30 04:55 WBC 6.7 RBC 3.93 L Hgb 11.9 L Hct 35.9 L MCV 91.4 MCH 30.3 MCHC 33.1 RDW 13.7 Plt Count 224 Neut % (Auto) 65.4 Lymph % (Auto) 17.7 L [place] % (Auto) 9.3 Eos % (Auto) 7.2 H Baso % (Auto) 0.4 Neut # (Auto) 4400 Lymph # (Auto) 1200 [place] # (Auto) 600 Eos # (Auto) 500 H Baso # (Auto) 0 COVID-19 PCR Not detected Assessment & Plan Assessment & Plan narrative: Brady Gallegos is a 69-year-old female with a past medical history significant for FRANNIE on CPAP, osteoarthritis, and seasonal allergies who presented after ground level fall with left periprosthetic hip fracture. 1. Acute left periprosthetic hip fracture, present on admission. Active. -Patient presented after ground level fall withleft lower extremity pain and inability to ambulate. -Left hip x-ray demonstrated mildly displaced periprosthetic fracture of the proximal left femur. -Patient is being ruled out for COVID-19 for possible assisted facility placement for rehabilitation, pending. -Consulted orthopedic surgery, Dr. Salamanca, who performed left hip revision and ORIF left proximal femur. Continue postoperative management, DVT prophylaxis and pain control per Ortho. -Continue aspirin 81 mg twice daily for DVT prophylaxis. -Continue pain control with acetaminophen 975 mg 3 times daily for mild pain, cyclobenzaprine 5 mg every 8 hours as needed for muscle spasm, oxycodone 5 mg every 3 hours as needed for moderate to severe pain, and morphine 1 mg IV every 4 hours as needed for severe breakthrough pain. -Continue calcium and vitamin-D supplementation. Patient will need outpatient treatment of osteoporosis per PCP or Ortho. 2. Obstructive sleep apnea on CPAP, chronic, present on admission. Stable. -Continue home CPAP per RT protocol. 3. Seasonal allergies, chronic, present on admission. Stable. -Continue fexofenadine 180 mg daily and Flonase 1 spray intranasal at bedtime. Code status: Full code DVT prophylaxis: ASA and SCDs Disposition: Patient remains hospitalized and may possibly be able to rehab at home with home health versus assisted facility at time of discharge. Quality VTE Deep Vein Thrombosis/Pulmonary Embolism Present on Admission: No
[2020-03-01] MEDS: ACETAMINOPHEN 325 MG TABLET 650 MG PO ×2 (14:35→20:52)
[2020-03-01] MEDS: SODIUM CHLORIDE 0.9% 1,000 ML 100 ML IV (14:35)
[2020-03-01] MEDS: IBUPROFEN 400 MG TABLET PO ×3 (14:35→20:51)
--- NOTE | 2020-03-01 17:48 | PC.NURSE ---
Addendum entered by Linda Rapp R.N. 03/01/20 22:07: Pt was given benadryl to manage c/o itching. Pt has placed own cpap on and monitor reads 92% on room air. Encouraged to alert staff when needing/desiring meds to manage pain. Pt acknowledges understanding. Addendum entered by Linda Rapp R.N. 03/01/20 21:17: Pt c/o itching @ beginning of shift and actively scratching abdomen. Offered benadryl and pt declined. Continues to c/o itching and pt reports seeing rash on left forearm. This telegraphic typewriter mechanic unable to see this rash. No other lesions, rash to trunk or extremities noted by this telegraphic typewriter mechanic. Pt agreeable to benadryl. Dr. Salamanca was contacted by telephone and this was discussed. Also informed MD of pt's bp 92/56 and 94/44. Hemovac emptied of 40 cc's serosang fluid. PATY drain/dressing to left hip continues to be intact. BL calf scd's in place. No change in neurovascular status this shift. Pt positioned onto left side. Addendum entered by Linda Rapp R.N. 03/01/20 19:16: Pt admits to full sensation to BL LE's. Denies pain. Moved to room 220 in bed as per supervisor labor gangCharla's request to keep Room 219 open. Original Note: Pt awake, alert resting quietly in bed. 1L oxygen per NC sats 97% per continuous monitor. Declines to wear cpap at this time. BL calf scd's in place. Pillow between legs and precautions reviewed with pt. Pt denies pain. Able to wiggle toes to feet BL. PATY drain and hemovac to left hip intact and operational. Denies nausea. Kidd to gravity.
[2020-03-01] MEDS: ASPIRIN EC 81 MG TABLET PO (20:51)
[2020-03-01] MEDS: DOCUSATE 100 MG CAPSULE PO (20:51)
[2020-03-01] MEDS: diphenhydrAMINE 25 MG TABLET PO (21:49)
[2020-03-02] VITALS (8 sets, daily range): BP systolic 101–118; BP diastolic 50–89; PULSE 65–76; RESP 14–18; TEMP 36.1–36.4; O2SAT 92–100
[2020-03-02] MEDS: CEFAZOLIN 2 GM/100 ML FROZ.PIGGY IV (00:15)
[2020-03-02] MEDS: IBUPROFEN 400 MG TABLET PO ×6 (00:15→21:24)
[2020-03-02] MEDS: SODIUM CHLORIDE 0.9% 1,000 ML 100 ML IV (00:17)
[2020-03-02] MEDS: OXYCODONE IR 5 MG TABLET PO ×4 (04:34→21:27)
[2020-03-02 05:53] LABS: Add Manual Diff / Slide Review NO; Basophils Absolute Auto 0 /uL (0-100); Basophils Percent Auto 0.3 % (0-2); Eosinophils Absolute Auto 0 /uL (0-450); Eosinophils Percent Auto 0.2 % (2-4); Hematocrit 25.8 % (36-46); Hemoglobin 8.8 g/dL (12.0-16.0); Lymphocytes Absolute Auto 1300 /uL (1100-4500); Lymphocytes Percent Auto 12.2 % (25-40); Mean Corpuscular HGB Conc 34.2 % (30-36); Mean Corpuscular Hemoglobin 31.2 PG (26-34); Mean Corpuscular Volume 91.2 fL (80-100); Monocytes Absolute Auto 1100 /uL (0-900); Monocytes Percent Auto 10.4 % (3-14); Neutrophils Absolute Auto 8200 /uL (1500-7000); Neutrophils Percent Auto 76.9 % (50-75); Platelet Count 205 X10^3/uL (150-400); Red Blood Cell Count 2.83 X10^6/uL (4.0-5.2); Red Cell Distribution Width 13.2 % (11.6-14.8); White Blood Cell Count 10.7 X10^3/uL (4.5-11.0)
[2020-03-02 06:06] LABS: Alanine Aminotransferase 23 IU/L (<35); Albumin Globulin Ratio 1.2 (1.0-2.8); Alkaline Phosphatase 51 U/L (38-126); Aspartate Aminotransferase 64 IU/L (14-36); BUN Creatinine Ratio 18.6 (6-22); Bilirubin Total 0.3 mg/dL (0.2-1.3); Blood Urea Nitrogen 16 mg/dL (7-17); Calcium 8.3 mg/dL (8.4-10.2); Carbon Dioxide 26 mmol/L (22-32); Chloride 104 mmol/L (98-107); Estimated Glomerular Filt Rate > 60.0 mL/min (>60); Globulin 2.6 g/dL (1.7-4.1); Glucose 121 mg/dL (80-110); HEMOLYSIS < 15 (0-50); Magnesium 2.1 mg/dL (1.6-2.3); Potassium 4.1 mmol/L (3.4-5.1); Sodium 133 mmol/L (137-145); Total Protein 5.6 g/dL (6.3-8.2)
--- NOTE | 2020-03-02 07:52 | PM.PN.1 ---
Subjective Subjective Date Patient Seen: 03/02/20 Time Patient Seen: 07:52 Interval history: She is postoperative day 1. Left hip replacement revision after a periprosthetic fracture. Her hemoglobin has dropped to 8.8 from 11.9, not unexpected after a 3 hour surgery. Sodium is 133 with an AST of 64 and ALT of 22. The albumin is 3.0. She is in an upbeat mood today. She reports that her sister will be coming to help her recuperate at home. She is undergoing physical therapy and occupational therapy evaluation. Her coronavirus test was negative on 02/27. Exam Vital Signs (past 8 hours): - 03/02/20 00:00 03/02/20 05:54 Temperature 97.1 F L 97.0 F L Pulse Rate 71 65 Respiratory Rate 18 16 Blood Pressure 102/55 L 103/52 L Pulse Oximetry 92 96 Oxygen Delivery Method Room Air,CPAP Oxygen Flow Rate 0 Narrative Exam Narrative: Alert and oriented, in no apparent distress. She is quite upbeat. Her sister will be coming to visit and help her recuperate again. Heart is regular rate and rhythm without murmur. Lungs are clear to auscultation bilaterally. Extremities have no ankle edema and there is no left hip tenderness or swelling/bleeding. Objective Labs Result Diagrams: 03/02/20 05:35 03/02/20 05:35 Labs: Laboratory Results - last 24 hr 03/02/20 03/02/20 05:35 05:35 WBC 10.7 D RBC 2.83 L Hgb 8.8 L Hct 25.8 L MCV 91.2 MCH 31.2 MCHC 34.2 RDW 13.2 Plt Count 205 Neut % (Auto) 76.9 H Lymph % (Auto) 12.2 L [place] % (Auto) 10.4 Eos % (Auto) 0.2 L Baso % (Auto) 0.3 Neut # (Auto) 8200 H Lymph # (Auto) 1300 [place] # (Auto) 1100 H Eos # (Auto) 0 Baso # (Auto) 0 Sodium 133 L Potassium 4.1 Chloride 104 Carbon Dioxide 26 BUN 16 Creatinine 0.86 Estimated GFR > 60.0 BUN/Creatinine Ratio 18.6 Glucose 121 H Calcium 8.3 L Magnesium 2.1 Total Bilirubin 0.3 AST 64 H ALT 23 Alkaline Phosphatase 51 Total Protein 5.6 L Albumin 3.0 L Globulin 2.6 Albumin/Globulin Ratio 1.2 Assessment & Plan Assessment & Plan narrative: Brady Gallegos is a 69-year-old female with a past medical history significant for FRANNIE on CPAP, osteoarthritis, and seasonal allergies who presented after ground level fall with left periprosthetic hip fracture. 1. Acute left periprosthetic hip fracture, present on admission. Active. -Patient presented after ground level fall with left lower extremity pain and inability to ambulate. -Left hip x-ray demonstrated mildly displaced periprosthetic fracture of the proximal left femur. -Patient was ruled out for COVID-19(negative on 02/27) for possible longterm facility placement for rehabilitation, pending. -Consulted orthopedic surgery, Dr. Salamanca, who performed left hip revision and ORIF left proximal femur. Continue postoperative management, DVT prophylaxis and pain control per Ortho. -Continue aspirin 81 mg twice daily for DVT prophylaxis. -Continue pain control with acetaminophen 975 mg 3 times daily for mild pain, cyclobenzaprine 5 mg every 8 hours as needed for muscle spasm, oxycodone 5 mg every 3 hours as needed for moderate to severe pain, and morphine 1 mg IV every 4 hours as needed for severe breakthrough pain. -Continue calcium and vitamin-D supplementation. Patient will need outpatient treatment of osteoporosis per PCP or Ortho. -doing well POD #1 -daily PT and OT -hgb 8.8 03/02 2. Obstructive sleep apnea on CPAP, chronic, present on admission. Stable. -Continue home CPAP per RT protocol. 3. Seasonal allergies, chronic, present on admission. Stable. -Continue fexofenadine 180 mg daily and Flonase 1 spray intranasal at bedtime. 4. Acute Blood Loss Anemia -hgb 11.9 down to 8.8 postop. -May need additional iron. Eating general diet currently. Follow Code status: Full code DVT prophylaxis: ASA and SCDs Disposition: Patient remains hospitalized and may possibly be able to rehab at home with home health versus longterm facility at time of discharge. Quality VTE Deep Vein Thrombosis/Pulmonary Embolism Present on Admission: No
[2020-03-02] MEDS: DOCUSATE 100 MG CAPSULE PO ×2 (08:18→21:24)
[2020-03-02] MEDS: ACETAMINOPHEN 325 MG TABLET 650 MG PO ×3 (08:19→21:25)
[2020-03-02] MEDS: ASPIRIN EC 81 MG TABLET PO ×2 (08:19→21:24)
--- NOTE | 2020-03-02 08:49 | PC.NURSE ---
Addendum entered by Jennyfer Luciano R.N. 03/02/20 14:52: Patients drain taken out and she had 50cc of bloody drainage out. Pressure dressing applied to area. Ruby catheter also taken out and pt had 75cc in ruby bag. She states that she is passing gas and would like to try and get up to try and have a bowel movement after a bit. Addendum entered by Jennyfer Luciano R.N. 03/02/20 14:05: Patient given tylenol and 1 oxycodone after physical therapy, states that pain level a 6/10. She is now back to bed and comfortable. Addendum entered by Jennyfer Luciano R.N. 03/02/20 12:39: Pt up with physical therapy and sitting up in chair. She can only bear weight of 100lbs to her l.extremity. Original Note: Assess- Patient is a&ox3, she states that her pain level is a 2/10, given tylenol and ibuprofen for discomfort, patient states that this has been helpful for discomfort. She has a alondra drain that is cdi, with a hemovac putting out minimal bloody drainage. Green light is also flashing on alondra drain. She is eating breakfast and comfortable at this time.
--- NOTE | 2020-03-02 10:30 | PT.IIE ---
Surgery Performed Operation Date: 03/01/20 07:45 Actual Procedures p Hip ORIF & Revision Stem(Left) - Madeline Salamanca MD Surgical History (Last Reviewed 02/29/20 @ 09:58 by Quoc Draper MD) History of hip replacement (Acute) History of total right hip arthroplasty (Acute ~2013) Hx of arthroscopy of left knee (Acute) Hx of dilation and curettage (Acute ~1968) Hx of left breast biopsy (Acute) Hx of tonsillectomy (Acute) S/P excision of lipoma (Acute ~2015) Status post epidural steroid injection (Acute) Medical History (Last Reviewed 02/29/20 @ 09:58 by Quoc Draper MD) Arthritis (Acute) Cervical nerve root impingement (Acute) Chronic cough (Acute) Edema (Acute) Insomnia (Chronic) Lumbar nerve root impingement (Acute) Numbness (Acute) Obstructive sleep apnea of adult (Chronic) Osteoarthritis (Acute) Palpitations (Acute) Seasonal allergies (Acute) Sinusitis (Acute) Snoring (Inactive) Thoracic nerve root impingement (Acute) Physical Therapy Inpatient Evaluation/Re-Eval M1 PT/OT-IP Prior Functional Status Start: 03/02/20 12:14 Freq: NEEDED Status: Active Protocol: Document 03/02/20 10:30 AB (Rec: 03/02/20 12:37 AB [id number]) Medical Review Prior Functional Status Medical History Reviewed Yes Communication able to make needs known Mobility and Gait pt stated that she is modified independent with all mobilities and ambulation using FWW Social History Household Members children Living Arrangements House Number of Floors (Floors) Two Floors Number of Stairs To Enter/Railing? 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 Her sister will be coming in to assist her for ~ 2 weeks M2 PT-IP Current Condition Start: 03/02/20 12:14 Freq: NEEDED Status: Active Protocol: Document 03/02/20 10:30 AB (Rec: 04/18/20 12:37 AB [id number]) Physical Therapy Current Condition Current Condition Evaluation Date 03/02/20 Treatment Diagnosis s/p fall s/p L hip revision and ORIF L proximal femur; difficulty walking Onset Date 02/28/2020 Precautions Posterior Hip Precautions No Hip Flexion > 90 degrees,No Hip Internal Rotation,No Hip Adduction Weight Bearing Status Weight Bearing Status Partial Weight Bearing Allowed Weight Bearing Amount (enter % LLE PWB 100# or #) (%) M3 PT-IP Subjective Start: 03/02/20 12:14 Freq: NEEDED Status: Active Protocol: Document 03/02/20 10:30 AB (Rec: 03/02/20 12:37 AB [id number]) Subjective Physical Therapy Visit Type Type Initial Evaluation Visit Start Time 10:30 Visit Stop Time 11:02 Total Visit Minutes 32 Number of MEAT APPRENTICE Visits 0 Physical Therapy Visit Comments Patient Comments pt agreeable to do PT Therapy Pain Assessment Pain When Pain Assessed At Rest Pain Present Pain Present Pain Reported Location L hip Intensity 2 Scale Used Numeric (1 - 10) Pain Management Techniques Modification of Treatment,Re- positioning,Timing of Activity with Medications M4 PT-IP Mobility and Gait Start: 03/02/20 12:14 Freq: NEEDED Status: Active Protocol: Document 03/02/20 10:30 AB (Rec: 03/02/20 12:37 AB [id number]) PT-Bed Mobility Assessment Supine to Sit Supine to Sit Standby Assistance PT-Transfer Assessment Sit to and From Stand Sit to and from Stand Minimal Assistance,1 Person Assistance,Use of Upper Extremities Equipment Transfer Assistive Device Gait Belt,Front Wheeled Walker Orthotic/Prosthetic Devices or Brace: No Transfers Transfer Destination Toilet Transfer Technique ambulation using FWW Transfer Ability Level of Assist Minimal Assistance,1 Person Assistance,Use of Upper Extremities Comments Mobility Comments reviewed hip precautions with pt and informed regarding LLE weight bearing restriction of 100#. completed bed mobility supine to sit SBA. completed sit to stand min A and cues to maintain precautions and weight bearing restriction. able to ambulate using FWW min A. used weighing scale to determine if pt is able to maintain weight bearing restriction. pt is able to maintain weight bearing restriction. pt ambulated to the toilet using FWW CGA to min A. OT assisted pt with toileting. pt ambulated out of the toilet towards the chair. Left pt with OT. Gait Assessment Gait Gait Assistance Required: Contact Guard Assist,Minimum Assistance,1 Person Assist Distance (Feet) 12 Able to Maintain Weight Bearing Status Yes During Gait Assistive Devices Assistive Device Gait Belt,Front Wheeled Walker Orthotic/Prosthetic Devices or Brace: No Gait Deviations General Gait Pattern Antalgic,Step-to Gait Factors Limiting Gait Function Factors Limiting Gait Function Decreased Activity Tolerance, Decreased Strength,Limited Range of Motion,Pain Comments Gait Comments pls refer to mobility section for details PT-Balance Assessment Sitting Balance and Reactions Static Sitting Balance Ability Good Dynamic Sitting Balance Ability Good Standing Balance and Reactions Static Standing Balance Ability Fair Dynamic Standing Balance Ability Fair Device Used FWW M5 PT-IP Objective Assessments Start: 03/02/20 12:14 Freq: NEEDED Status: Active Protocol: Document 03/02/20 10:30 AB (Rec: 03/02/20 12:37 AB [id number]) Orientation Orientation/Cognition Level of Alertness Alert Orientation Name,Age,Birthday Safety Awareness Understands Safety Issues Memory Description Short Term Impaired Strength Lower Extremity Strength Assessment Left Impaired Hip 3+/5 Knee 4-/5 Sensation Assessment Sensation Gross Sensation WNL Muscle Tone Muscle Tone WNL Yes M6 PT-IP Treatment Start: 03/02/20 12:14 Freq: NEEDED Status: Active Protocol: Document 03/02/20 10:30 AB (Rec: 03/02/20 12:37 AB [id number]) Physical Therapy Treatment Education Education Provided Precautions,Weight Bearing Status,Post-Op Packet,Safety M7 PT-IP Assessment and Plan Start: 03/02/20 12:14 Freq: NEEDED Status: Active Protocol: Document 03/02/20 10:30 AB (Rec: 03/02/20 12:37 AB [id number]) PT Summary Assessment and Plan Potential Rehabilitation Potential Good Status of Condition at Evaluation Stable Summary Impairments Pain,ROM,Strength,Balance,Bed Mobility,Transfers,Gait, Activity Tolerance Assessment Summary pt requiring CGA to min A with mobility using FWW. pt plans to go home with her sister to assist her. will conduct caregiver training if appropriate. will complete stair training prior to d/c. pt will require outpt PT. Goals Bed Mobility Goal Independent Transfer Goal Independent,Front Wheeled Walker Gait Goal Independent,Front Wheel Walker Gait Distance 150 Other Goals up/down 1 step SBA using FWW Days to Meet Goals 5 Frequency of Treatment Frequency Of Treatment Twice a Day Treatment Plan Physical Therapy Treatment Plan Bed Mobility Training,Transfer Training,Gait Training, Therapeutic Exercise,Balance Retraining,Post Op Education, Discharge Planning,Hot or Cold Pack,Neuromuscular Re-ed, Coordination Retraining,Manual Therapy Other Recommendations and Next Treatment ambulation, stair climbing Focus Recommendations To Nursing Amount of Assist Needed 1 Person Assist Discharge Recommendations PT Discharge Recommendations Home with Assistance, Outpatient PT Transportation Needs at Discharge Private Vehicle
--- NOTE | 2020-03-02 11:15 | OT.IP.EVAL ---
Surgery Performed Operation Date: 03/01/20 07:45 Actual Procedures p Hip ORIF & Revision Stem(Left) - Madeline Salamanca MD Past Medical History (Last Reviewed 02/29/20 @ 09:58 by Quoc Draper MD) Arthritis (Acute) Cervical nerve root impingement (Acute) Chronic cough (Acute) Edema (Acute) Insomnia (Chronic) Lumbar nerve root impingement (Acute) Numbness (Acute) Obstructive sleep apnea of adult (Chronic) Osteoarthritis (Acute) Palpitations (Acute) Seasonal allergies (Acute) Sinusitis (Acute) Snoring (Inactive) Thoracic nerve root impingement (Acute) Surgical History (Last Reviewed 02/29/20 @ 09:58 by Quoc Draper MD) History of hip replacement (Acute) History of total right hip arthroplasty (Acute ~2013) Hx of arthroscopy of left knee (Acute) Hx of dilation and curettage (Acute ~1968) Hx of left breast biopsy (Acute) Hx of tonsillectomy (Acute) S/P excision of lipoma (Acute ~2015) Status post epidural steroid injection (Acute) Occupational Therapy Inpatient Evaluation/Re-Eval M1 PT/OT-IP Prior Functional Status Start: 03/02/20 12:14 Freq: NEEDED Status: Active Protocol: Document 03/02/20 12:21 CGR (Rec: 03/02/20 12:39 CGR [id number]) Medical Review Prior Functional Status Medical History Reviewed Yes Communication Pt is an effective verbal communicator. Mobility and Gait Pt was IND with SPC. Activities of Daily Living and IADL's Pt was IND with hip kit for dressing and bathing. Social History Household Members children Living Arrangements House Number of Floors (Floors) Two Floors Number of Stairs To Enter/Railing? 1 Home Environment Standard Height Toilet,Tub/ Shower Home Equipment Front Wheel Walker,Four Wheel Walker,Straight Cane,Tub Transfer Bench,Leg Processing Associate, Screening Specialist,Sock Aid,Lift Recliner ,Grab Bars Near Toilet Employment Status Customer Marketing Intern Employed Additional Social History Comment Pt works as a medical assist. She had just returned to work and worked 2 days before getting furloughed. M2 OT-IP Current Condition Start: 03/02/20 12:19 Freq: Status: Active Protocol: Document 03/02/20 12:21 CGR (Rec: 03/02/20 12:39 CGR [email or web address]) Occupational Therapy Current Condition Current Condition Evaluation Date 03/02/20 Treatment Diagnosis L hip replacement revision, s/ p break Diagnosis Onset Date 02/28/20 Post Operative Precautions Posterior Hip Precautions No Hip Flexion > 90 degrees,No Hip Internal Rotation,No Hip Adduction Weight Bearing Status Weight Bearing Status Partial Weight Bearing Allowed Weight Bearing Amount (enter % 100lbs or #) (%) M3 OT- IP Subjective and Pain Start: 03/02/20 12:19 Freq: Status: Active Protocol: Document 03/02/20 12:21 CGR (Rec: 03/02/20 12:39 CGR [email or web address]) OT- Subjective Occupational Therapy Visit Type Type Initial Evaluation Visit Start Time 10:40 Visit Stop Time 11:15 Total Visit Minutes 35 Notes partial co-treat with P.T. OT Pain Assessment Pain When Pain Assessed At Rest Pain Present Pain Present Pain Reported Location L hip Intensity 3 Scale Used Numeric (1 - 10) Management Techniques Modification of Treatment, Timing of Activity with Medications M4 OT- IP ADL's Start: 03/02/20 12:19 Freq: Status: Active Protocol: Document 03/02/20 12:21 CGR (Rec: 03/02/20 12:39 CGR [email or web address]) OT [id number] Comments OT Self-Feeding Comments not meal time OT ADL-Grooming General Evaluation Grooming Ability Standby Assistance Areas Needing Assistance Retrieving/Set-up of Grooming Items,Combing/Brushing Hair, Face Washing Comments OT Grooming Comments standing at sink OT ADL-Oral Care General Eval Oral Care Ability Standby Assistance Areas of Assistance Brushing Teeth,Retrieving/Set- Up of Items Comments Oral Care Comments standing at sink OT ADL-Dressing General Eval Lower Body Dressing Ability Total Assistance Areas Needing Assistance Retrieving/Set-up of Clothing, Socks Comments OT Dressing Comments Donned socks for pt. Pt states she has been taught to use the hip kit for LB dressing and does use it at home prior to the revision. OT ADL-Toileting General Evaluation Toileting Ability Standby Assistance Devices Toileting Assistive Devices Grab Bars Comments OT Toileting Comments seated on toilet, unable to have BM OT ADL-Bathing Comments OT Bathing Comments not performed in todays session M5 OT- IP IADL's Start: 03/02/20 12:19 Freq: Status: Active Protocol: Document 03/02/20 12:21 CGR (Rec: 03/02/20 12:39 CGR [email or web address]) OT-Instrumental Activities of Daily Living Deficits IADL Deficits Identified Deficits Home Safety Awareness Awareness of Need for Assistance at Home Good Awareness Ability to Problem Solve Emergency Able to Problem Solve Situations Medication Management Medication Management No Deficits Identified Money Management Money Management No Deficits Identified Meal Preparation Meal Preparation Caregiver Provides Assist Surveillance Analyst Surveillance Analyst Caregiver Provides Assist Driving Driving Caregiver Provides Assist M6 OT- IP Functional Cognition Start: 03/02/20 12:19 Freq: Status: Active Protocol: Document 03/02/20 12:21 CGR (Rec: 03/02/20 12:39 CGR [email or web address]) Cognitive Factors Limiting Selfcare Function Cognitive Ability Level of Alertness Alert Patient Orientation Name,Age,Birthday,Month,Date, Year,Day of Week,Place, Situation Attention Span Ability Capable of Focused Attention, Capable of Sustained Attention Ability to Follow Commands Able to Follow Multi-Step Commands Memory Description No Deficits Noted Safety Awareness No Deficits Noted Problem Solving Ability No deficits Noted OT- Vision and Hearing OT- Hearing Assessment OT- Hearing Assessment WFL OT- Vision Assessment Visual Acuity Glasses All The Time Visual Attentiveness WFL Occular Pursuits WFL Visual Convergence WFL M7 OT- IP Mobility and Balance Start: 03/02/20 12:19 Freq: Status: Active Protocol: Document 03/02/20 12:21 CGR (Rec: 03/02/20 12:39 CGR [email or web address]) OT- Bed Mobility Assessment Rolling Type of Rolling Roll to Left Level of Assistance Standby Assistance Supine to Sit Supine to Sit Assist Standby Assistance Scooting Scooting to Edge of Bed Standby Assistance OT-Transfer Assessment Sit to and From Stand Sit to and from Stand Minimal Assistance Transfers Transfer Ability Contact Guard Assistance, Minimal Assistance Technique Transfer Destination Bed,Chair,Toilet Transfer Technique Stand Step Pivot Devices Transfer Assistive Devices Gait Belt,Front Wheeled Walker Comments Mobility Comments Pt performed mobility around the room with CGA to min a using walker and able to perform with ~40lbs to the LLE . OT- Balance Assessment Sitting Balance and Reactions Static Sitting Balance Ability Good M8 OT- IP Objective Assessments Start: 03/02/20 12:19 Freq: Status: Active Protocol: Document 03/02/20 12:21 CGR (Rec: 03/02/20 12:39 CGR [email or web address]) OT Gross Range of Motion Upper Extremity Range of Motion Assessment Within Functional Limits OT Strength Upper Extremity Strength Assessment Within Functional Limits Comments Strength Comments 4+/5 OT- Coordination Assessment Upper Extremity Finger to Nose Test Within Functional Limits Finger Tapping Test Within Functional Limits OT-Muscle Tone Assessment Muscle Tone WNL Yes OT Sensation Assessment Edema Edema Absent M9 OT- IP Assessment and Plan Start: 03/02/20 12:19 Freq: Status: Active Protocol: Document 03/02/20 12:21 CGR (Rec: 03/02/20 12:39 CGR [email or web address]) OT Summary Assessment and Plan Potential Rehabilitation Potential Excellent Analytic Complexity at Evaluation Low Summary OT Impairments Pain,Balance,Functional Mobility,Grooming,Dressing, Toileting,Bathing,Toilet Transfers,Shower Transfers, Activity Tolerance Progress Towards Goals Progressing Toward Goals Assessment Summary Pt presents as a low complexity evaluation s/p fall and need for revision of her L hip. Pt is progressing well and will likely be safe for discharge home with assist from her sister who plans to comes stay with her or her son who lives in her basement. Pt will continue to benefit from OT services while in hospital. Goals Grooming Goal Independent Dressing Goal Independent Toileting Goal Independent Bathing Goal Independent Toilet Transfer Goal Independent Shower Transfer Goal Independent Days to Meet Goals 5 Frequency of Treatment Frequency Of Treatment Once a Day Treatment Plan OT Treatment Plan ADL Training,Functional Mobility,Patient/Family Education,Discharge Planning Other Treatment Recommendations and Next shower and review of LB Treatment Focus dressing. Discharge Recommendations OT Discharge Recommendations Home with Assistance Home Equipment Needs Pt has all necessary equipment Transportation Needs at Discharge Private Vehicle
--- NOTE | 2020-03-02 12:46 | CM.DPC ---
DCP continued: EMR reviewed: CM/RN met with patient at the bedside and discussed D/C to SNF vs Home vs home with HH. Patient stated she doesn't want to go to a SNF if she doesn't have to. [facility] has accepted and PASRR is done if that changes. Patient stated she wants to go home with the help of her sister who will be staying with her and doesn't want HH at this time but is open to HH if it is needed at D/C. CM/Rn gave her a list of HH providers and she will look over it and decide about HH today. OT and PT notes say she can go home with assistance. Plan: D/C home with family when medically stable. Cm department will follow up tomorrow to determine if patient would like HH services. Mary Kay Salamanca RN
--- NOTE | 2020-03-02 12:50 | PM.PN.1 ---
Subjective Subjective Date Patient Seen: 03/02/20 Time Patient Seen: 12:50 Interval history: Brady notes that she is doing reasonably well with adequately controlled left hip pain. She did get out of bed with physical therapy and is seated in a chair. She had some itching yesterday but it has gotten better she denies any nausea or abdominal discomfort. No numbness or tingling in the left leg. Exam Vital Signs (past 8 hours): - 03/02/20 05:54 03/02/20 08:09 03/02/20 09:05 Temperature 97.0 F L 97.0 F L Pulse Rate 65 65 76 Respiratory Rate 16 18 16 Blood Pressure 103/52 L 105/55 L Pulse Oximetry 96 99 99 03/02/20 11:55 Temperature 97.6 F Pulse Rate 75 Respiratory Rate 18 Blood Pressure 101/89 Pulse Oximetry 94 Oxygen Delivery Method Room Air Oxygen Flow Rate 0 Narrative Exam Narrative: She is resting comfortably in bed she has no pain with gentle range of motion in her left hip, her dressings intact, her calfs are soft bilaterally and she is able to fire toe flexors and extensors. Objective Labs Result Diagrams: 03/02/20 05:35 03/02/20 05:35 Labs: Laboratory Results - last 24 hr 03/02/20 03/02/20 05:35 05:35 WBC 10.7 D RBC 2.83 L Hgb 8.8 L Hct 25.8 L MCV 91.2 MCH 31.2 MCHC 34.2 RDW 13.2 Plt Count 205 Neut % (Auto) 76.9 H Lymph % (Auto) 12.2 L [place] % (Auto) 10.4 Eos % (Auto) 0.2 L Baso % (Auto) 0.3 Neut # (Auto) 8200 H Lymph # (Auto) 1300 [place] # (Auto) 1100 H Eos # (Auto) 0 Baso # (Auto) 0 Sodium 133 L Potassium 4.1 Chloride 104 Carbon Dioxide 26 BUN 16 Creatinine 0.86 Estimated GFR > 60.0 BUN/Creatinine Ratio 18.6 Glucose 121 H Calcium 8.3 L Magnesium 2.1 Total Bilirubin 0.3 AST 64 H ALT 23 Alkaline Phosphatase 51 Total Protein 5.6 L Albumin 3.0 L Globulin 2.6 Albumin/Globulin Ratio 1.2 Assessment & Plan Assessment & Plan narrative: Doing well status post left hip revision arthroplasty with open reduction internal fixation of the left proximal femur fracture. Postoperative anemia fairly mildly symptomatic. Plan begin iron and vitamin-C. She can be weight-bearing up to 100 or 150 lb on the left lower extremity. Continue with physical therapy. Anticipate probable discharge to home on Wednesday depending upon her progress with physical therapy. We are going to discontinue her drain and take her Kidd out 1st thing in the morning. She will use aspirin for DVT prophylaxis. Quality VTE Deep Vein Thrombosis/Pulmonary Embolism Present on Admission: No
--- NOTE | 2020-03-02 13:28 | PT.IPTN ---
Current Diagnoses Periprosthetic fracture around internal prosthetic left hip joint, initial encounter (02/28/20) Surgery Performed Operation Date: 03/01/20 07:45 Actual Procedures p Hip ORIF & Revision Stem(Left) - Madeline Salamanca MD Physical Therapy Treatment Note M2 PT-IP Current Condition Start: 03/02/20 12:14 Freq: NEEDED Status: Active Protocol: Document 03/02/20 10:30 AB (Rec: 03/02/20 12:37 AB [id number]) Physical Therapy Current Condition Current Condition Evaluation Date 03/02/20 Treatment Diagnosis s/p fall s/p L hip revision and ORIF L proximal femur; difficulty walking Onset Date 02/28/2020 Precautions Posterior Hip Precautions No Hip Flexion > 90 degrees,No Hip Internal Rotation,No Hip Adduction Weight Bearing Status Weight Bearing Status Partial Weight Bearing Allowed Weight Bearing Amount (enter % LLE PWB 100# or #) (%) M3 PT-IP Subjective Start: 03/02/20 12:14 Freq: NEEDED Status: Active Protocol: Document 03/02/20 13:28 AB (Rec: 03/02/20 14:27 AB [id number]) Subjective Physical Therapy Visit Type Type Treatment Note Visit Start Time 13:28 Visit Stop Time 14:05 Total Visit Minutes 37 Number of [employer]AM Visits 0 Physical Therapy Visit Comments Patient Comments pt agreeable to do PT Therapy Pain Assessment Pain When Pain Assessed At Rest Pain Present Pain Present Pain Reported Location L knee Intensity 8 Scale Used Numeric (1 - 10) Pain Management Techniques Modification of Treatment,Re- positioning M4 PT-IP Mobility and Gait Start: 03/02/20 12:14 Freq: NEEDED Status: Active Protocol: Document 03/02/20 13:28 AB (Rec: 03/02/20 14:27 AB [id number]) PT-Bed Mobility Assessment Sit to Supine Sit to Supine Standby Assistance PT-Transfer Assessment Sit to and From Stand Sit to and from Stand Contact Guard Assistance,1 Person Assistance Equipment Transfer Assistive Device Gait Belt,Front Wheeled Walker Orthotic/Prosthetic Devices or Brace: No Transfers Transfer Destination Bed Transfer Technique ambulated using FWW Transfer Ability Level of Assist Contact Guard Assistance,1 Person Assistance,Use of Upper Extremities Comments Mobility Comments pt sitting on chair. c/o lateral knee pain and tightness. completed heel slides in sitting prior to mobility. pt agreeable to do stair climbing training. educated pt on adhering to weight bearing restriction with stair climbing and PT demonstrated to pt regarding execution. completed sit to stand CGA and cues. pt ambulated in room ~ 30 ft. completed up/down step stool using FWW CGA and cues for techniques. opted pt to do step backwards so pt will be able to use UE strength to be able to maintain weight bearing restriction. pt was able to complete. used scale to guage weight bearing and pt was able to maintain restriction. pt completed x 2 sets. pt requested to go back to bed afterwards and ambulated to the bed using FWW CGA. completed sit to supine SBA with cues. positioned pt in bed. call light and table placed within reach. Gait Assessment Gait Gait Assistance Required: Contact Guard Assist Distance (Feet) 30 Able to Maintain Weight Bearing Status Yes During Gait Assistive Devices Assistive Device Gait Belt,Front Wheeled Walker Orthotic/Prosthetic Devices or Brace: No Gait Deviations General Gait Pattern Antalgic,Decreased Stride Length,Decreased Feet Clearance Factors Limiting Gait Function Factors Limiting Gait Function Decreased Activity Tolerance, Decreased Strength,Limited Range of Motion,Pain,Poor Balance Stair Climbing Assessment Evaluation Level of Assist On Stairs Contact Guard Assistance,1 Person Assistance Devices Stair Climbing Assistive Devices Front Wheel Walker Technique/Endurance Stair Climbing Direction Ascend and Descend Stair Climbing Technique Step to Step Number of Steps Climbed 1 Stair Climbing Set # Repetitions (reps) 2 Comments Stair Climbing Comments pls refer to mobility section for details M5 PT-IP Objective Assessments Start: 03/02/20 12:14 Freq: NEEDED Status: Active Protocol: Document 03/02/20 10:30 AB (Rec: 03/02/20 12:37 AB [id number]) Orientation Orientation/Cognition Level of Alertness Alert Orientation Name,Age,Birthday Safety Awareness Understands Safety Issues Memory Description Short Term Impaired Strength Lower Extremity Strength Assessment Left Impaired Hip 3+/5 Knee 4-/5 Sensation Assessment Sensation Gross Sensation WNL Muscle Tone Muscle Tone WNL Yes M6 PT-IP Treatment Start: 03/02/20 12:14 Freq: NEEDED Status: Active Protocol: Document 03/02/20 13:28 AB (Rec: 03/02/20 14:27 AB [id number]) Physical Therapy Treatment Exercises Exercises Heel Slides Education Education Provided Precautions,Weight Bearing Status,Safety Other Treatments Other Treatment Performed reviewed hip precautions and pt able to recall 2/3 M7 PT-IP Assessment and Plan Start: 03/02/20 12:14 Freq: NEEDED Status: Active Protocol: Document 03/02/20 13:28 AB (Rec: 03/02/20 14:27 AB [id number]) PT Summary Assessment and Plan Potential Rehabilitation Potential Good Summary Impairments Pain,ROM,Strength,Balance,Bed Mobility,Transfers,Gait, Activity Tolerance Progress Towards Goals Progressing Toward Goals Assessment Summary pt requiring CGA wit mobility and able to maintain hip precautions and weight bearing restriction. pt plans to go home and her sister will be available to assist her. Goals Bed Mobility Goal Independent Transfer Goal Independent,Front Wheeled Walker Gait Goal Independent,Front Wheel Walker Gait Distance 150 Other Goals up/down 1 step SBA using FWW Days to Meet Goals 5 Frequency of Treatment Frequency Of Treatment Twice a Day Treatment Plan Physical Therapy Treatment Plan Bed Mobility Training,Transfer Training,Gait Training, Therapeutic Exercise,Balance Retraining,Post Op Education, Discharge Planning,Hot or Cold Pack,Neuromuscular Re-ed, Coordination Retraining,Manual Therapy Other Recommendations and Next Treatment ambulation, stair climbing Focus Recommendations To Nursing Amount of Assist Needed 1 Person Assist Discharge Recommendations PT Discharge Recommendations Home with Assistance, Outpatient PT Transportation Needs at Discharge Private Vehicle
[2020-03-02] MEDS: FERROUS GLUCONATE 324 MG TABLET PO (21:24)
[2020-03-03] MEDS: IBUPROFEN 400 MG TABLET PO ×6 (01:10→22:01)
[2020-03-03 04:23] VITALS: BP 106/65; PULSE 72; RESP 16; TEMP 36.4; O2SAT 96
[2020-03-03 07:56] VITALS: BP 104/63; PULSE 85; RESP 16; TEMP 36.3; O2SAT 98
--- NOTE | 2020-03-03 08:29 | P.PN_ITS ---
Subjective Subjective Date Patient Seen: 03/03/20 Time Patient Seen: 08:29 Interval history: She remains very optimistic about returning home tomorrow instead of needing senior care facility rehabilitation. Her sister will be arriving on to help her long-term. She has some expected low levels of pain in the left hip along with stiffness and is appreciative of the PT and OT efforts so far. No signs of complications from the left hip replacement surgery. No laboratory testing was needed today. Recent blood test results are reviewed. Exam Vital Signs (past 8 hours): - 03/03/20 04:23 Temperature 97.6 F Pulse Rate 72 Respiratory Rate 16 Blood Pressure 106/65 Pulse Oximetry 96 Oxygen Delivery Method Room Air Oxygen Flow Rate 0 Narrative Exam Narrative: She is alert, oriented x3, in no apparent distress. She is in a very upbeat and positive mood. She is expecting her sister to arrive tomorrow when she discharges home to help her. Heart is regular rate and rhythm without murmur Lungs are clear to auscultation bilaterally Extremities have no ankle edema The left hip honeycomb type dressing is intact without bleeding or signs of infection. Objective Labs Result Diagrams: 03/02/20 05:35 03/02/20 05:35 Assessment & Plan Assessment & Plan narrative: Brady Gallegos is a 69-year-old female with a past medical history significant for FRANNIE on CPAP, osteoarthritis, and seasonal allergies who presented after ground level fall with left periprosthetic hip fracture. 1. Acute left periprosthetic hip fracture, present on admission. Active. -Patient presented after ground level fall with left lower extremity pain and inability to ambulate. -Left hip x-ray demonstrated mildly displaced periprosthetic fracture of the proximal left femur. -Patient was ruled out for COVID-19(negative on 02/27) for possible senior care facility placement for rehabilitation, pending. -Consulted orthopedic surgery, Dr. Salamanca, who performed left hip revision and ORIF left proximal femur. Continue postoperative management, DVT prophylaxis and pain control per Ortho. -Continue aspirin 81 mg twice daily for DVT prophylaxis. -Continue pain control with acetaminophen 975 mg 3 times daily for mild pain, cyclobenzaprine 5 mg every 8 hours as needed for muscle spasm, oxycodone 5 mg every 3 hours as needed for moderate to severe pain, and morphine 1 mg IV every 4 hours as needed for severe breakthrough pain. -Continue calcium and vitamin-D supplementation. Patient will need outpatient treatment of osteoporosis per PCP or Ortho. -doing well POD #2 -daily PT and OT -hgb 8.8 03/02, recheck at discharge planned for 03/03 for possible need for Iron therapy. 2. Obstructive sleep apnea on CPAP, chronic, present on admission. Stable. -Continue home CPAP per [facility] protocol. 3. Seasonal allergies, chronic, present on admission. Stable. -Continue fexofenadine 180 mg daily and Flonase 1 spray intranasal at bedtime. 4. Acute Blood Loss Anemia -hgb 11.9 down to 8.8 postop. -May need additional iron. Eating general diet currently. Follow again 03/03. Code status: Full code DVT prophylaxis: ASA and SCDs Disposition: Patient remains hospitalized and may possibly be able to rehab at home with home health versus senior care facility at time of discharge. Potentially as early as 03/03 or 03/04. Quality VTE Deep Vein Thrombosis/Pulmonary Embolism Present on Admission: No
[2020-03-03] MEDS: ASPIRIN EC 81 MG TABLET PO ×2 (09:43→22:01)
[2020-03-03] MEDS: FERROUS GLUCONATE 324 MG TABLET PO ×2 (09:43→22:02)
[2020-03-03] MEDS: ACETAMINOPHEN 325 MG TABLET 650 MG PO ×3 (09:43→22:02)
[2020-03-03] MEDS: DOCUSATE 100 MG CAPSULE PO ×2 (09:43→22:02)
[2020-03-03] MEDS: SODIUM CHLORIDE 0.9% FLUSH 10 ML IV ×2 (09:45→22:03)
--- NOTE | 2020-03-03 10:23 | PC.NURSE ---
Addendum entered by Arun Castañeda R.N. 03/03/20 12:21: Continues to progress. Offers no overt c/o pain. Stated feel a bit dizzy after meds but has been steady when up and accompanied by staff. Original Note: Pt up in chair presently after b'fast in bed. Pt in no acute distress, using IS appropriately, asking appropriate question. Meds given without issue.
--- NOTE | 2020-03-03 10:33 | CM.DPC ---
Addendum entered by Teena Salamanca 03/04/20 10:27: Patient uses CPAP at night. No changes to previous level of respiratory function. KJS Addendum entered by Teena Salamanca 03/04/20 09:31: Reviewed chart. Spoke with provider and patient medically cleared to d/c home today. No SNF or HH needed. Met with patient to confirm plan and she is aware and agreeable. Patient's sister will be home to assist her as needed. ARLETH Original Note: DCP/continued: Reviewed chart. Spoke with provider in AM rounds. D/C anticipated within the next 24-48hrs. Therapy following. Current recommendation is home with HH. F2F signed by hospitalist. No discharge anticipated for today. Therapy continue to work with patient. Other options include [facility] for short rehab stay. CM team following closely. P: Anticipate home with HH vs. SNF. Plan to discuss with orthopedic team in AM. Unsure if outpatient therapy an option at this time due to COVID precautions. OLGA Henson
--- NOTE | 2020-03-03 11:00 | PT.IPTN ---
Current Diagnoses Periprosthetic fracture around internal prosthetic left hip joint, initial encounter (02/28/20) Surgery Performed Operation Date: 03/01/20 07:45 Actual Procedures p Hip ORIF & Revision Stem(Left) - Madeline Salamanca MD Physical Therapy Treatment Note M2 PT-IP Current Condition Start: 03/02/20 12:14 Freq: NEEDED Status: Active Protocol: Document 03/02/20 10:30 AB (Rec: 03/02/20 12:37 AB [id number]) Physical Therapy Current Condition Current Condition Evaluation Date 03/02/20 Treatment Diagnosis s/p fall s/p L hip revision and ORIF L proximal femur; difficulty walking Onset Date 02/28/2020 Precautions Posterior Hip Precautions No Hip Flexion > 90 degrees,No Hip Internal Rotation,No Hip Adduction Weight Bearing Status Weight Bearing Status Partial Weight Bearing Allowed Weight Bearing Amount (enter % LLE PWB 100# or #) (%) M3 PT-IP Subjective Start: 03/02/20 12:14 Freq: NEEDED Status: Active Protocol: Document 03/03/20 11:00 [facility] (Rec: 03/03/20 12:52 [facility] [id number]) Subjective Physical Therapy Visit Type Type Treatment Note Visit Start Time 10:03 Visit Stop Time 11:00 Total Visit Minutes 57 Number of CHART COLLECTOR Visits 0 Physical Therapy Visit Comments Patient Comments Pt reports she has been having pain in L knee, hip, ITB and into L LB that makes it hard to be comfortable Patient Goals return home with sister assist Therapy Pain Assessment Pain When Pain Assessed rest&amb Pain Present Pain Present Pain Reported Location L knee Intensity 4 Scale Used Numeric (1 - 10) Pain Management Techniques Apply Cold,Re-positioning, Timing of Activity with Medications L hip Intensity 6 Scale Used Numeric (1 - 10) M4 PT-IP Mobility and Gait Start: 03/02/20 12:14 Freq: NEEDED Status: Active Protocol: Document 03/03/20 11:00 [facility] (Rec: 03/03/20 12:52 [facility] [id number]) PT-Transfer Assessment Sit to and From Stand Sit to and from Stand Standby Assistance,Use of Upper Extremities Equipment Transfer Assistive Device Gait Belt,Front Wheeled Walker Comments Mobility Comments Pt stood from toilet SBA and chair 3x throughout treatment SBA. After leaving rest room, pt amb to sink SBA and cued to keep walker in front as she washed hands. Pt sat in chair and was educated on how to position herself and how to set up her walker height. Walker height was adjusted for pt. Pt also educated and performed exercsiese in chair. Educated on anatomy of pain and how to do self STM. Pt then stood again to FWW and amb about 10ft to step in room and went up and down single step with FWW as she could at home 2x with cueing. Then amb back to chair 10ft to sit. pt stood again CGA then amb about 80ft with FWW and SBA with cueing for wb. In standing, pt used scale and only pushed into leg to about 40lbs so was not exceeding precautions. Gait Assessment Gait Gait Assistance Required: Standby Assistance Distance (Feet) 110 Able to Maintain Weight Bearing Status Yes During Gait Assistive Devices Assistive Device Gait Belt,Front Wheeled Walker Orthotic/Prosthetic Devices or Brace: No Gait Deviations General Gait Pattern Antalgic,Decreased Stride Length,Flexed Trunk Factors Limiting Gait Function Factors Limiting Gait Function Decreased Strength,Pain Comments Gait Comments see above Stair Climbing Assessment Evaluation Level of Assist On Stairs Contact Guard Assistance Devices Stair Climbing Assistive Devices Front Wheel Walker Technique/Endurance Stair Climbing Direction Ascend and Descend Stair Climbing Technique Step to Step Number of Steps Climbed 1 Stair Climbing Set # Repetitions (reps) 2 M5 PT-IP Objective Assessments Start: 03/02/20 12:14 Freq: NEEDED Status: Active Protocol: Document 03/02/20 10:30 AB (Rec: 03/02/20 12:37 AB [id number]) Orientation Orientation/Cognition Level of Alertness Alert Orientation Name,Age,Birthday Safety Awareness Understands Safety Issues Memory Description Short Term Impaired Strength Lower Extremity Strength Assessment Left Impaired Hip 3+/5 Knee 4-/5 Sensation Assessment Sensation Gross Sensation WNL Muscle Tone Muscle Tone WNL Yes M6 PT-IP Treatment Start: 03/02/20 12:14 Freq: NEEDED Status: Active Protocol: Document 03/03/20 11:00 [facility] (Rec: 03/03/20 12:52 [facility] [id number]) Physical Therapy Treatment Exercises Exercises Ankle Pumps,Gluteal Sets,Quad Sets,Seated Knee Flexion/ Extension Education Education Provided Precautions,Weight Bearing Status,Safety Other Treatments Other Treatment Performed edu re: anatomy and signfiicant edu re: positioning for comfort, edu self soft tissue massage and PT STM to quads, HS, adductors gently M7 PT-IP Assessment and Plan Start: 03/02/20 12:14 Freq: NEEDED Status: Active Protocol: Document 03/03/20 11:00 [facility] (Rec: 03/03/20 12:52 [facility] [id number]) PT Summary Assessment and Plan Potential Rehabilitation Potential Good Summary Impairments Pain,ROM,Strength,Balance,Bed Mobility,Transfers,Gait, Activity Tolerance Progress Towards Goals Progressing Toward Goals Goals Bed Mobility Goal Independent Transfer Goal Independent,Front Wheeled Walker Gait Goal Independent,Front Wheel Walker Gait Distance 150 Other Goals up/down 1 step SBA using FWW Days to Meet Goals 5 Frequency of Treatment Frequency Of Treatment Twice a Day Treatment Plan Physical Therapy Treatment Plan Bed Mobility Training,Transfer Training,Gait Training, Therapeutic Exercise,Balance Retraining,Post Op Education, Discharge Planning,Hot or Cold Pack,Neuromuscular Re-ed, Coordination Retraining,Manual Therapy Other Recommendations and Next Treatment ambulation, stair climbing Focus Recommendations To Nursing Amount of Assist Needed 1 Person Assist Discharge Recommendations PT Discharge Recommendations Home with Assistance,Home Health Transportation Needs at Discharge Private Vehicle
--- NOTE | 2020-03-03 11:10 | PM.PN.1 ---
Subjective Subjective Date Patient Seen: 03/03/20 Time Patient Seen: 11:10 Interval history: She is doing well overall. She is ambulating well with physical therapy in the [place] she does note some tightness into her left knee and also into her SI joint. She is compliant with partial weight-bearing. Physical therapy is working with her and is going to attempt to train her on stairs. Exam Vital Signs (past 8 hours): - 03/03/20 04:23 03/03/20 07:56 Temperature 97.6 F 97.4 F L Pulse Rate 72 85 Respiratory Rate 16 16 Blood Pressure 106/65 104/63 Pulse Oximetry 96 98 Oxygen Delivery Method Room Air Oxygen Flow Rate 0 Narrative Exam Narrative: Dressings dry and intact, calf soft bilaterally anticipated mild swelling in the left thigh, lungs clear, abdomen benign Objective Labs Result Diagrams: 03/02/20 05:35 03/02/20 05:35 Assessment & Plan Assessment & Plan narrative: Doing well status post a left hip revision for femoral fracture and open reduction internal fixation. She is ambulating well in the stokes and is compliant knowledgeable about her discharge instructions. She needs to be cleared with physical therapy and can probably be discharged to home tomorrow. Quality VTE Deep Vein Thrombosis/Pulmonary Embolism Present on Admission: No
[2020-03-03] MEDS: NEPHRO-VITE RX TABLET 1 TAB PO (11:17)
[2020-03-03 11:38] VITALS: BP 125/67; PULSE 74; RESP 14; TEMP 36.1; O2SAT 100
--- NOTE | 2020-03-03 14:36 | PT.IPTN ---
Current Diagnoses Periprosthetic fracture around internal prosthetic left hip joint, initial encounter (02/28/20) Surgery Performed Operation Date: 03/01/20 07:45 Actual Procedures p Hip ORIF & Revision Stem(Left) - Madeline Salamanca MD Physical Therapy Treatment Note M2 PT-IP Current Condition Start: 03/02/20 12:14 Freq: NEEDED Status: Active Protocol: Document 03/02/20 10:30 AB (Rec: 03/02/20 12:37 AB [id number]) Physical Therapy Current Condition Current Condition Evaluation Date 03/02/20 Treatment Diagnosis s/p fall s/p L hip revision and ORIF L proximal femur; difficulty walking Onset Date 02/28/2020 Precautions Posterior Hip Precautions No Hip Flexion > 90 degrees,No Hip Internal Rotation,No Hip Adduction Weight Bearing Status Weight Bearing Status Partial Weight Bearing Allowed Weight Bearing Amount (enter % LLE PWB 100# or #) (%) M3 PT-IP Subjective Start: 03/02/20 12:14 Freq: NEEDED Status: Active Protocol: Document 03/03/20 13:57 [facility] (Rec: 03/03/20 14:36 [facility] [id number]) Subjective Physical Therapy Visit Type Type Treatment Note Visit Start Time 13:53 Visit Stop Time 14:28 Total Visit Minutes 35 Number of SUPERINTENDENT SYSTEM OPERATION Visits 0 Physical Therapy Visit Comments Patient Comments Pt reprots knee feels better this PM Therapy Pain Assessment Pain When Pain Assessed During Mobility Pain Present Pain Present Pain Reported Location L knee Pain Management Techniques Apply Cold L hip Pain Management Techniques Apply Cold M4 PT-IP Mobility and Gait Start: 03/02/20 12:14 Freq: NEEDED Status: Active Protocol: Document 03/03/20 13:57 [facility] (Rec: 03/03/20 14:36 [facility] [id number]) PT-Bed Mobility Assessment Supine to Sit Supine to Sit Independent Sit to Supine Sit to Supine Independent Scooting Scooting to Edge of Bed Independent Scooting Up and Down in Bed Independent PT-Transfer Assessment Sit to and From Stand Sit to and from Stand Standby Assistance,Use of Upper Extremities Equipment Transfer Assistive Device Gait Belt,Front Wheeled Walker Comments Mobility Comments Pt did supine to sit indep then stood from bed to amb to stairs then did up/down 1 step 2x with cuieng for sequence and WB. Pt amb back to room SBA with FWW with cueing during amb to make sure to slow down to focus on only 100 # WB. Pt got into bed indep and then back out to seated indep then stood SBA to amb to bathroomw ith FWW SBA and was able to do toileting indep with SBA for sit<>stand at toilet. Pt did well with bringing walker in front of her when washing up at sink. Pt indep with sit to supine. Gait Assessment Gait Gait Assistance Required: Standby Assistance Distance (Feet) 400 Able to Maintain Weight Bearing Status Yes During Gait Assistive Devices Assistive Device Gait Belt,Front Wheeled Walker Orthotic/Prosthetic Devices or Brace: No Gait Deviations General Gait Pattern Antalgic,Decreased Stride Length,Flexed Trunk Factors Limiting Gait Function Factors Limiting Gait Function Decreased Strength,Pain Comments Gait Comments see above Stair Climbing Assessment Evaluation Level of Assist On Stairs Standby Assistance Devices Stair Climbing Assistive Devices Front Wheel Walker Technique/Endurance Stair Climbing Direction Ascend and Descend Stair Climbing Technique Step to Step Number of Steps Climbed 1 Stair Climbing Set # Repetitions (reps) 2 Comments Stair Climbing Comments fwd up to large platform step with FWW M5 PT-IP Objective Assessments Start: 03/02/20 12:14 Freq: NEEDED Status: Active Protocol: Document 03/02/20 10:30 AB (Rec: 03/02/20 12:37 AB [id number]) Orientation Orientation/Cognition Level of Alertness Alert Orientation Name,Age,Birthday Safety Awareness Understands Safety Issues Memory Description Short Term Impaired Strength Lower Extremity Strength Assessment Left Impaired Hip 3+/5 Knee 4-/5 Sensation Assessment Sensation Gross Sensation WNL Muscle Tone Muscle Tone WNL Yes M6 PT-IP Treatment Start: 03/02/20 12:14 Freq: NEEDED Status: Active Protocol: Document 03/03/20 13:57 [facility] (Rec: 03/03/20 14:36 [facility] [id number]) Physical Therapy Treatment Exercises Exercises Ankle Pumps,Gluteal Sets,Quad Sets,Heel Slides,Supine Hip Abduction Education Education Provided Precautions,Weight Bearing Status,Safety Other Treatments Other Treatment Performed edu on supine positioning & review precautions M7 PT-IP Assessment and Plan Start: 03/02/20 12:14 Freq: NEEDED Status: Active Protocol: Document 03/03/20 13:57 [facility] (Rec: 03/03/20 14:36 [facility] [id number]) PT Summary Assessment and Plan Potential Rehabilitation Potential Good Summary Impairments Pain,ROM,Strength,Balance,Bed Mobility,Transfers,Gait, Activity Tolerance Progress Towards Goals Progressing Toward Goals Assessment Summary Pt cont to progress with her mobility and is overall doing well with all activtieis with cueing occasionally to make sure she is maintianing 100# wb precuations. Goals Bed Mobility Goal Independent Transfer Goal Independent,Front Wheeled Walker Gait Goal Independent,Front Wheel Walker Gait Distance 150 Other Goals up/down 1 step SBA using FWW Days to Meet Goals 5 Frequency of Treatment Frequency Of Treatment Twice a Day Treatment Plan Physical Therapy Treatment Plan Bed Mobility Training,Transfer Training,Gait Training, Therapeutic Exercise,Balance Retraining,Post Op Education, Discharge Planning,Hot or Cold Pack,Neuromuscular Re-ed, Coordination Retraining,Manual Therapy Other Recommendations and Next Treatment CG training as needed Focus Recommendations To Nursing Amount of Assist Needed Standby Assistance Discharge Recommendations PT Discharge Recommendations Home with Assistance, Outpatient PT Transportation Needs at Discharge Private Vehicle
[2020-03-03 15:27] VITALS: BP 105/61; PULSE 75; RESP 18; TEMP 36.4
[2020-03-03 20:21] VITALS: BP 123/73; PULSE 75; RESP 18; TEMP 36.4
[2020-03-03 23:32] VITALS: BP 119/66; PULSE 83; RESP 16; TEMP 36.3; O2SAT 96
[2020-03-04] MEDS: IBUPROFEN 400 MG TABLET PO ×3 (01:04→10:10)
[2020-03-04 04:16] VITALS: BP 127/73; PULSE 77; RESP 16; TEMP 36.2; O2SAT 98
[2020-03-04 06:08] LABS: Add Manual Diff / Slide Review NO; Basophils Absolute Auto 0 /uL (0-100); Basophils Percent Auto 0.3 % (0-2); Eosinophils Absolute Auto 500 /uL (0-450); Eosinophils Percent Auto 7.2 % (2-4); Hematocrit 25.4 % (36-46); Hemoglobin 8.6 g/dL (12.0-16.0); Lymphocytes Absolute Auto 1400 /uL (1100-4500); Lymphocytes Percent Auto 20.3 % (25-40); Mean Corpuscular HGB Conc 33.7 % (30-36); Mean Corpuscular Hemoglobin 30.6 PG (26-34); Mean Corpuscular Volume 90.8 fL (80-100); Monocytes Absolute Auto 700 /uL (0-900); Monocytes Percent Auto 9.7 % (3-14); Neutrophils Absolute Auto 4300 /uL (1500-7000); Neutrophils Percent Auto 62.5 % (50-75); Platelet Count 241 X10^3/uL (150-400); Red Blood Cell Count 2.79 X10^6/uL (4.0-5.2); Red Cell Distribution Width 13.5 % (11.6-14.8); White Blood Cell Count 6.9 X10^3/uL (4.5-11.0)
--- NOTE | 2020-03-04 08:41 | PM.DS.1 ---
History of Present Illness History of Present Illness Date Patient Seen: 02/28/20 Chief complaint: Hip Pain Narrative: Written by Dr. Hamilton: This is a 69 year old female who fell at home fracturing the left hip just below her prosthetic hip replacement. She was pruning trees in her yard when her right foot caught on her branch so she swung her left leg to recover her balance and fell to the ground. Her hip replacement was quite recent 01/[address] Madeline Salamanca. She has no current medical symptoms, uses CPAP for FRANNIE and several medications for Seasonal Allergies. Her initial lab workup is normal. She is in a great deal of pain with her left leg noticeably shorter than the right leg (her left leg had been slightly longer than the right after the recent hip replacement). Discharge Providers Provider Date of admission: 02/28/20 19:28 Discharge Date: 03/04/20 Primary care physician: Shelbie Dan PA-C Consults: 02/28/20 18:49 Consult to Orthopedic Surgery Stat Comment: Consulting Provider: Quoc Draper Reason for consultation: hip fx 03/01/20 07:50 Consult to Respiratory Therapy Evaluate & Treat Comment: Physician Instructions: Evaluate and treat 03/01/20 13:33 Consult to Discharge Planning Routine Comment: Consult to Physical Therapy Evaluate & Treat Comment: Physician Instructions: postop TKA protocol Consult to Respiratory Therapy Evaluate & Treat Comment: Physician Instructions: Evaluate and treat 03/02/20 09:44 Consult to Occupational Therapy Evaluate & Treat Comment: Physician Instructions: Evaluate and treat Discharge provider: Cheyenne Gong DO Summary Hospital Course Discharge Diagnosis: 1. Acute left periprosthetic hip fracture, present on admission. Active. 2. Acute blood loss anemia, secondary to left hip ORIF, not present on admission. Stable. 3. Obstructive sleep apnea on CPAP, chronic, present on admission. Stable. 4. Seasonal allergies, chronic, present on admission. Stable. Hospital Course: Brady Gallegos is a 69-year-old female with a past medical history significant for FRANNIE on CPAP, osteoarthritis, and seasonal allergies who presented after ground level fall with left periprosthetic hip fracture. 1. Acute left periprosthetic hip fracture, present on admission. Active. -Patient presented after ground level fall with left lower extremity pain and inability to ambulate. -Left hip x-ray demonstrated mildly displaced periprosthetic fracture of the proximal left femur. -Patient was ruled out for COVID-19(negative on 02/27) for possible long-term facility placement for rehabilitation, pending. -Consulted orthopedic surgery, Dr. Salamanca, who performed left hip revision and ORIF left proximal femur. Continued postoperative management, DVT prophylaxis and pain control per Ortho. Plan for follow-up with orthopedic surgery in 2 weeks. -Continue aspirin 81 mg twice daily x 6 weeks for DVT prophylaxis. -Continue pain control with acetaminophen 975 mg 3 times daily for mild pain, ibuprofen 600 mg every 4 hours for moderate pain, oxycodone 5 mg every 3 hours as needed for moderate to severe pain, and morphine 1 mg IV every 4 hours as needed for severe breakthrough pain. -Continued calcium and vitamin-D supplementation. Patient will need outpatient treatment of osteoporosis per PCP or Ortho. -Continued physical and occupational therapy evaluation and treatment. Continued partial weight-bearing as tolerated with posterior hip precautions. 2. Acute blood loss anemia, secondary to left hip ORIF, not present on admission. Stable. -Initial hemoglobin 11.9. Hemoglobin trending down now 8.6 postoperatively. No overt signs of bleeding. Continued to monitor hemoglobin and hematocrit closely. -Continued ferrous gluconate 324 mg daily and bowel regimen to avoid iron and opiate induced constipation. 3. Obstructive sleep apnea on CPAP, chronic, present on admission. Stable. -Continued home CPAP per RT protocol. 4. Seasonal allergies, chronic, present on admission. Stable. -Continued fexofenadine 180 mg daily and Flonase 1 spray intranasal at bedtime. Exam Vital Signs (past 8 hours): - 03/04/20 04:16 Temperature 97.1 F L Pulse Rate 77 Respiratory Rate 16 Blood Pressure 127/73 Pulse Oximetry 98 Oxygen Delivery Method Room Air Oxygen Flow Rate 0 Narrative Exam Narrative: General: Elderly female lying in bed and in no acute distress, appears stated age, well-developed, well-nourished, appropriately interactive. HEENT: Normocephalic, atraumatic. External ears without defect. Pupils equal, round, and reactive to light. Anicteric sclerae, moist conjunctivae, and no lid lag. Oropharynx free of erythema and cobble stoning with dry oral mucosa. Neck: Supple with full range of motion. No lymphadenopathy or thyromegaly. Cardiovascular: Regular rate and rhythm without murmurs, rubs, or gallops appreciated. Pulmonary: Clear to auscultation bilaterally without crackles, wheezes, or rhonchi. Normal respiratory effort with no use of accessory muscles. Abdomen: Soft, bowel sounds present, nontender, nondistended. No hepatosplenomegaly or masses appreciated. Extremities: Left hip with dressing in place C/D/I and drain without output. Distal left lower extremity pulses and movement intact. No clubbing, cyanosis, or edema of other extremities. Skin: Normal temperature, turgor, and texture; no rash, ulcers, or subcutaneous nodules appreciated. Neurological: Cranial nerves grossly intact. Psychiatric: Normal mood and affect. Alert and oriented to person, place, and time. Objective Labs Result Diagrams: 03/04/20 05:23 03/02/20 05:35 Labs: Laboratory Results - last 24 hr 03/04/20 05:23 WBC 6.9 RBC 2.79 L Hgb 8.6 L Hct 25.4 L MCV 90.8 MCH 30.6 MCHC 33.7 RDW 13.5 Plt Count 241 Neut % (Auto) 62.5 Lymph % (Auto) 20.3 L Pettis % (Auto) 9.7 Eos % (Auto) 7.2 H Baso % (Auto) 0.3 Neut # (Auto) 4300 Lymph # (Auto) 1400 Pettis # (Auto) 700 Eos # (Auto) 500 H Baso # (Auto) 0 Discharge Plan Discharge Plan Patient Disposition: Home Health Service Discharge comment: You are being discharged home. You broke your left hip around your prosthetic which has now been repaired. You may continue taking Tylenol and ibuprofen alternating for pain control and you were prescribed oxycodone 5 mg every 4-6 hours as needed for severe breakthrough pain. Continue to weightbear as tolerated. Please follow-up with orthopedic surgery, Dr. Salamanca, at your scheduled appointment. Discharge orders & Medications Prescriptions: New polyethylene glycol 3350 17 gram Powder In Packet 17 gm PO DAILY Qty: 30 RF: 0 docusate sodium [DOK] 100 mg Capsule 100 mg PO BID Qty: 60 RF: 0 oxycodone 5 mg Tablet 5 mg PO Q4-6H PRN (Reason: Pain, Moderate (4-6)) Qty: 20 RF: 0 ferrous gluconate 324 mg (38 mg iron) Tablet 324 mg PO DAILY Qty: 30 RF: 0 ibuprofen 400 mg Tablet 400 mg PO Q4HR Qty: 30 RF: 0 Continued fexofenadine [Olivia Allergy] 180 mg Tablet 180 mg PO DAILY RF: 0 fluticasone propionate [Flonase Allergy Relief] 50 mcg/actuation [place]arrison,Suspension 1 spray INTRANASAL BEDTIME RF: 0 acetaminophen 500 mg Tablet 500 mg PO Q4H PRN (Reason: Pain) Qty: 60 RF: 0 (DME) Resmed Aircurve 10 BIPAP Qty: 1 RF: 0 Changed aspirin 81 mg Tablet,Delayed Release (Dr/Ec) 81 mg PO BID Qty: 80 RF: 0 Discontinued naproxen sodium [Aleve] 220 mg Capsule 220 mg PO BID PRN (Reason: Pain (Scale Score 1-3)) RF: 0 Follow up/Referrals: Shelbie Dan PA-C [Primary Care Provider] - (Please call to confirm your follow up appointment time.) Madeline Salamanca MD [Physician] - 03/13/20 Diet/Activity/Treatments Diet: Low-fat, Low-sodium and Low-cholesterol Activity: Partial weight bearing as tolerated up to 100 lbs and posterior hip precautions. Visit Report/Discharge Packet Instructions: DI for Hip Replacement, DI for Constipation, How to Prevent Falls, DI for Postoperative Pain Stand Alone Forms: Surgery Discharge Visit Report Forms: Patient Portal/API, Stroke Signs & Symptoms Discharge Data Primary Care Provider: Shelbie Dan Quality VTE Deep Vein Thrombosis/Pulmonary Embolism Present on Admission: No
[2020-03-04 08:43] VITALS: BP 146/66; PULSE 69; RESP 18; TEMP 36.6; O2SAT 94
--- NOTE | 2020-03-04 09:26 | PT.IPTN ---
Current Diagnoses Periprosthetic fracture around internal prosthetic left hip joint, initial encounter (02/28/20) Surgery Performed Operation Date: 03/01/20 07:45 Actual Procedures p Hip ORIF & Revision Stem(Left) - Madeline Salamanca MD Physical Therapy Treatment Note M2 PT-IP Current Condition Start: 03/02/20 12:14 Freq: NEEDED Status: Discharge Protocol: Document 03/02/20 10:30 AB (Rec: 03/02/20 12:37 AB [id number]) Physical Therapy Current Condition Current Condition Evaluation Date 03/02/20 Treatment Diagnosis s/p fall s/p L hip revision and ORIF L proximal femur; difficulty walking Onset Date 02/28/2020 Precautions Posterior Hip Precautions No Hip Flexion > 90 degrees,No Hip Internal Rotation,No Hip Adduction Weight Bearing Status Weight Bearing Status Partial Weight Bearing Allowed Weight Bearing Amount (enter % LLE PWB 100# or #) (%) M3 PT-IP Subjective Start: 03/02/20 12:14 Freq: NEEDED Status: Active Protocol: Document 03/04/20 09:26 [facility] (Rec: 03/04/20 11:53 [facility] [id number]) Subjective Physical Therapy Visit Type Type Treatment Note Visit Start Time 09:00 Visit Stop Time 09:26 Total Visit Minutes 26 Number of MECHANICAL ENGINEERING TECHNICIAN Visits 0 Physical Therapy Visit Comments Patient Comments Pt not concerned about going home Therapy Pain Assessment Pain When Pain Assessed During Mobility Pain Present Pain Present Pain Reported M4 PT-IP Mobility and Gait Start: 03/02/20 12:14 Freq: NEEDED Status: Active Protocol: Document 03/04/20 09:26 [facility] (Rec: 03/04/20 11:53 [facility] [id number]) PT-Transfer Assessment Sit to and From Stand Sit to and from Stand Standby Assistance,Use of Upper Extremities Equipment Transfer Assistive Device Gait Belt,Front Wheeled Walker Comments Mobility Comments Pt stood to ambulate down stokes to stairs then up/down step 2x then back to roomw ith cueing during gait to focus on use of UE for offloading. Pt returned to chair and propped for comfort with call light in reach. Gait Assessment Gait Gait Assistance Required: Standby Assistance Distance (Feet) 400 Able to Maintain Weight Bearing Status Yes During Gait Assistive Devices Assistive Device Gait Belt,Front Wheeled Walker Orthotic/Prosthetic Devices or Brace: No Gait Deviations General Gait Pattern Decreased Stride Length,Flexed Trunk Factors Limiting Gait Function Factors Limiting Gait Function Decreased Strength,Pain Comments Gait Comments see above Stair Climbing Assessment Evaluation Level of Assist On Stairs Standby Assistance Devices Stair Climbing Assistive Devices Front Wheel Walker Technique/Endurance Stair Climbing Direction Ascend and Descend Stair Climbing Technique Step to Step Number of Steps Climbed 1 Stair Climbing Set # Repetitions (reps) 2 Comments Stair Climbing Comments fwd up to large platform step with FWW M5 PT-IP Objective Assessments Start: 03/02/20 12:14 Freq: NEEDED Status: Discharge Protocol: Document 03/02/20 10:30 AB (Rec: 03/02/20 12:37 AB [id number]) Orientation Orientation/Cognition Level of Alertness Alert Orientation Name,Age,Birthday Safety Awareness Understands Safety Issues Memory Description Short Term Impaired Strength Lower Extremity Strength Assessment Left Impaired Hip 3+/5 Knee 4-/5 Sensation Assessment Sensation Gross Sensation WNL Muscle Tone Muscle Tone WNL Yes M6 PT-IP Treatment Start: 03/02/20 12:14 Freq: NEEDED Status: Active Protocol: Document 03/04/20 09:26 [facility] (Rec: 03/04/20 11:53 [facility] [id number]) Physical Therapy Treatment Education Education Provided Precautions,Weight Bearing Status,Safety Other Treatments Other Treatment Performed review exercises verbally, review precautions, review car transfer, review how to prop for comfort M7 PT-IP Assessment and Plan Start: 03/02/20 12:14 Freq: NEEDED Status: Active Protocol: Document 03/04/20 09:26 [facility] (Rec: 03/04/20 11:53 [facility] [id number]) PT Summary Assessment and Plan Potential Rehabilitation Potential Good Summary Impairments Pain,ROM,Strength,Balance,Bed Mobility,Transfers,Gait, Activity Tolerance Progress Towards Goals Progressing Toward Goals Assessment Summary Pt did well with all mobility and had no questions regarding going home. Pt is cleared by PT to return home. Goals Bed Mobility Goal Independent Transfer Goal Independent,Front Wheeled Walker Gait Goal Independent,Front Wheel Walker Gait Distance 150 Other Goals up/down 1 step SBA using FWW Days to Meet Goals 5 Frequency of Treatment Frequency Of Treatment Twice a Day Treatment Plan Physical Therapy Treatment Plan Bed Mobility Training,Transfer Training,Gait Training, Therapeutic Exercise,Balance Retraining,Post Op Education, Discharge Planning,Hot or Cold Pack,Neuromuscular Re-ed, Coordination Retraining,Manual Therapy Other Recommendations and Next Treatment CG training as needed Focus Recommendations To Nursing Amount of Assist Needed Standby Assistance Discharge Recommendations PT Discharge Recommendations Home with Assistance, Outpatient PT Transportation Needs at Discharge Private Vehicle
--- NOTE | 2020-03-04 10:04 | OT.IP.TRT ---
Current Diagnoses Periprosthetic fracture around internal prosthetic left hip joint, initial encounter (02/28/20) Surgery Performed Operation Date: 03/01/20 07:45 Actual Procedures p Hip ORIF & Revision Stem(Left) - Madeline Salamanca MD Occupational Therapy Treatment Note M3 OT- IP Subjective and Pain Start: 03/02/20 12:19 Freq: Status: Active Protocol: Document 03/04/20 10:04 [facility] (Rec: 03/04/20 12:01 [facility] [id number]) OT- Subjective Occupational Therapy Visit Type Type Treatment Note Visit Start Time 09:36 Visit Stop Time 10:04 Total Visit Minutes 28 Occupational Therapy Visit Comments Patient Comments Pt wanting to shower. Patient/Caregiver Goals To go home. OT Pain Assessment Pain When Pain Assessed At Rest Pain Present Pain Present Denied Pain M4 OT- IP ADL's Start: 03/02/20 12:19 Freq: Status: Active Protocol: Document 03/04/20 10:04 [facility] (Rec: 03/04/20 12:01 [facility] [id number]) OT ADL-Dressing General Eval Upper Body Dressing Ability Independent Lower Body Dressing Ability Standby Assistance Areas Needing Assistance Shoes Comments OT Dressing Comments Pt able to priti LB dressing with LB dressing equipment and good safety. OT ADL-Toileting General Evaluation Toileting Ability Standby Assistance Devices Toileting Assistive Devices Grab Bars Comments OT Toileting Comments SBA and good safety for hip precautions. OT ADL-Bathing Bathing Type Bathing Type Shower General Evaluation Bathing Ability Moderate Assistance Areas Needing Assistance Wash/Dry Back,Wash/Dry Lower Extremities Devices Bathing Equipment Shower Chair with Arms Comments OT Bathing Comments Pt just needing assist to wash her back and feet otherwise able to safely follow hip precautions for showering. Pt 's sister to assist for needs. at home. M5 OT- IP IADL's Start: 03/02/20 12:19 Freq: Status: Active Protocol: Document 03/02/20 12:21 [facility] (Rec: 03/02/20 12:39 [facility] [id number]) OT-Instrumental Activities of Daily Living Deficits IADL Deficits Identified Deficits Home Safety Awareness Awareness of Need for Assistance at Home Good Awareness Ability to Problem Solve Emergency Able to Problem Solve Situations Medication Management Medication Management No Deficits Identified Money Management Money Management No Deficits Identified Meal Preparation Meal Preparation Caregiver Provides Assist Furniture Restorer Furniture Restorer Caregiver Provides Assist Driving Driving Caregiver Provides Assist M6 OT- IP Functional Cognition Start: 03/02/20 12:19 Freq: Status: Active Protocol: Document 03/04/20 10:04 [facility] (Rec: 03/04/20 12:01 [facility] [id number]) Cognitive Factors Limiting Selfcare Function Cognitive Ability Level of Alertness Alert Patient Orientation Name,Age,Birthday,Month,Date, Year,Day of Week,Place, Situation Attention Span Ability Capable of Focused Attention, Capable of Sustained Attention Ability to Follow Commands Able to Follow Multi-Step Commands Memory Description No Deficits Noted Safety Awareness No Deficits Noted Problem Solving Ability No deficits Noted OT- Vision and Hearing OT- Hearing Assessment OT- Hearing Assessment WFL OT- Vision Assessment Visual Acuity Glasses All The Time Visual Attentiveness WFL Occular Pursuits WFL Visual Convergence WFL M7 OT- IP Mobility and Balance Start: 03/02/20 12:19 Freq: Status: Active Protocol: Document 03/04/20 10:04 [facility] (Rec: 03/04/20 12:01 [facility] [id number]) OT-Transfer Assessment Sit to and From Stand Sit to and from Stand Standby Assistance Transfers Transfer Ability Standby Assistance Technique Transfer Destination Chair,Shower Stall,Toilet Devices Transfer Assistive Devices Gait Belt,Front Wheeled Walker Comments Mobility Comments SBA with FWW , CGA when stepping over the threshold of the shower. OT- Balance Assessment Sitting Balance and Reactions Static Sitting Balance Ability Normal Dynamic Sitting Balance Ability Good Standing Balance and Reactions Static Standing Balance Ability Good M8 OT- IP Objective Assessments Start: 03/02/20 12:19 Freq: Status: Active Protocol: Document 03/02/20 12:21 [facility] (Rec: 03/02/20 12:39 [facility] [id number]) OT Gross Range of Motion Upper Extremity Range of Motion Assessment Within Functional Limits OT Strength Upper Extremity Strength Assessment Within Functional Limits Comments Strength Comments 4+/5 OT- Coordination Assessment Upper Extremity Finger to Nose Test Within Functional Limits Finger Tapping Test Within Functional Limits OT-Muscle Tone Assessment Muscle Tone WNL Yes OT Sensation Assessment Edema Edema Absent M9 OT- IP Assessment and Plan Start: 03/02/20 12:19 Freq: Status: Active Protocol: Document 03/04/20 10:04 [facility] (Rec: 03/04/20 12:01 [facility] [id number]) OT Summary Assessment and Plan Potential Rehabilitation Potential Excellent Analytic Complexity at Evaluation Low Summary Progress Towards Goals Progressing Toward Goals Assessment Summary Pt doing well and able to follow hip precautions well. Pt's sister to stay with her to assist for needs. Pt going home today. Goals Grooming Goal Independent Dressing Goal Independent Toileting Goal Independent Bathing Goal Independent Toilet Transfer Goal Independent Shower Transfer Goal Independent Days to Meet Goals 1 Frequency of Treatment Frequency Of Treatment Once a Day Treatment Plan OT Treatment Plan Patient/Family Education, Discharge Planning Discharge Recommendations OT Discharge Recommendations Home with Assistance Home Equipment Needs Pt has all necessary equipment Transportation Needs at Discharge Private Vehicle
[2020-03-04] MEDS: DOCUSATE 100 MG CAPSULE PO (10:11)
[2020-03-04] MEDS: ASPIRIN EC 81 MG TABLET PO (10:11)
[2020-03-04] MEDS: NEPHRO-VITE RX TABLET 1 TAB PO (10:12)
[2020-03-04] MEDS: FERROUS GLUCONATE 324 MG TABLET PO (10:16)
--- NOTE | 2020-03-04 10:58 | PM.PN.1 ---
Subjective Subjective Date Patient Seen: 03/04/20 Time Patient Seen: 11:10 Interval history: She notes that she is doing overall well overall. She did ambulate the length of the stokes today and she was safe getting up and down steps. She is partial weight-bearing on the left lower extremity. Exam Vital Signs (past 8 hours): - 03/04/20 04:16 03/04/20 08:43 Temperature 97.1 F L 97.8 F Pulse Rate 77 69 Respiratory Rate 16 18 Blood Pressure 127/73 146/66 H Pulse Oximetry 98 94 Oxygen Delivery Method Room Air Oxygen Flow Rate 0 Narrative Exam Narrative: Her calfs are soft bilaterally, her dressings intact, she is neurologically intact distally she is alert she is oriented she is resting comfortably in the chair in her clothes ready to go home. Objective Labs Result Diagrams: 03/04/20 05:23 03/02/20 05:35 Labs: Laboratory Results - last 24 hr 03/04/20 05:23 WBC 6.9 RBC 2.79 L Hgb 8.6 L Hct 25.4 L MCV 90.8 MCH 30.6 MCHC 33.7 RDW 13.5 Plt Count 241 Neut % (Auto) 62.5 Lymph % (Auto) 20.3 L [place] % (Auto) 9.7 Eos % (Auto) 7.2 H Baso % (Auto) 0.3 Neut # (Auto) 4300 Lymph # (Auto) 1400 [place] # (Auto) 700 Eos # (Auto) 500 H Baso # (Auto) 0 Assessment & Plan Assessment & Plan narrative: Doing well status post left hip periprosthetic fracture. Plan discharge to home with a follow-up in 10 days. Keep her dressing on. Continue partial weight-bearing. Use aspirin for DVT prophylaxis. Quality VTE Deep Vein Thrombosis/Pulmonary Embolism Present on Admission: No
== END 2020-03-04 11:40 | disposition home health service (06) | DRG 467 ==
LOC: ED 17:54 → AC 19:04
PROVIDERS: Family Medicine; Orthopaedic Surgery; Admitting Provider Internal Medicine; Emergency Provider Nurse Practitioner Family; Family Provider Student in an Organized Health Care Education/Training Program; PCP Student in an Organized Health Care Education/Training Program; Referring Provider Nurse Practitioner Family; Visit Provider Internal Medicine
PROC: 0SRS01Z Replacement of Left Hip Joint, Femoral Surface with Metal Synthetic Substitute, Open Approach (ICD-10-PCS; principal; 2020-03-01 07:45)
DX: S72.002A Fracture of unspecified part of neck of left femur, initial encounter for closed fracture (principal); M97.02XA Periprosthetic fracture around internal prosthetic left hip joint, initial encounter; D62 Acute posthemorrhagic anemia; J30.2 Other seasonal allergic rhinitis; G47.33 Obstructive sleep apnea (adult) (pediatric); W18.30XA Fall on same level, unspecified, initial encounter; Y92.007 Garden or yard of unspecified non-institutional (private) residence as the place of occurrence of the external cause
CPT/HCPCS: 36415; 51701; 72190; 73502; 76000; 80048; 80053; 83735; 85025; 85610; 85730; 86850; 86900; 86901; 87070; 87075; 87205; 87635; 94660; 94760; 96361; 96374; 97110; 97116; 97161; 97165; 97530; 97535; 99284; C1776; C9290; J0690; J1100; J1170; J1650; J2250; J2270; J2274; J2405; J2704; J3010

== ENCOUNTER → 2020-05-01 14:34 | Outpatient (CLI) | payer MEDICARE, SELFPAY ==
[2020-05-01 15:15] LABS: Add Manual Diff / Slide Review NO; Basophils Absolute Auto 0 /uL (0-100); Basophils Percent Auto 0.3 % (0-2); Eosinophils Absolute Auto 100 /uL (0-450); Eosinophils Percent Auto 2.3 % (2-4); Hematocrit 38.4 % (36-46); Hemoglobin 13.2 g/dL (12.0-16.0); Lymphocytes Absolute Auto 1900 /uL (1100-4500); Lymphocytes Percent Auto 35.6 % (25-40); Mean Corpuscular HGB Conc 34.4 % (30-36); Mean Corpuscular Hemoglobin 30.6 PG (26-34); Monocytes Absolute Auto 400 /uL (0-900); Neutrophils Absolute Auto 2800 /uL (1500-7000); Neutrophils Percent Auto 53.8 % (50-75); Platelet Count 236 X10^3/uL (150-400); Red Blood Cell Count 4.32 X10^6/uL (4.0-5.2); Red Cell Distribution Width 13.4 % (11.6-14.8); White Blood Cell Count 5.2 X10^3/uL (4.5-11.0)
[2020-05-01 15:41] LABS: Alanine Aminotransferase 20 IU/L (<35); Albumin 4.3 g/dL (3.5-5.0); Albumin Globulin Ratio 1.5 (1.0-2.8); Alkaline Phosphatase 84 U/L (38-126); Aspartate Aminotransferase 28 IU/L (14-36); BUN Creatinine Ratio 18.8 (6-22); Bilirubin Total 0.3 mg/dL (0.2-1.3); Blood Urea Nitrogen 15 mg/dL (7-17); Calcium 9.7 mg/dL (8.4-10.2); Carbon Dioxide 26 mmol/L (22-32); Chloride 107 mmol/L (98-107); Estimated Glomerular Filt Rate > 60.0 mL/min (>60); Globulin 2.9 g/dL (1.7-4.1); Glucose 113 mg/dL (80-110); HEMOLYSIS < 15 (0-50); Potassium 4.1 mmol/L (3.4-5.1); Sodium 138 mmol/L (137-145); Total Protein 7.2 g/dL (6.3-8.2)
== END ==
PROVIDERS: Family Provider Student in an Organized Health Care Education/Training Program; PCP Student in an Organized Health Care Education/Training Program; Referring Provider Student in an Organized Health Care Education/Training Program; Visit Provider Student in an Organized Health Care Education/Training Program
DX: R74.8 Abnormal levels of other serum enzymes (principal); D64.9 Anemia, unspecified
CPT/HCPCS: 36415; 80053; 85025

== ENCOUNTER → 2020-05-20 11:25 | Outpatient (CLI) | payer MEDICARE, SELFPAY ==
--- NOTE | 2020-05-20 11:42 | DI.MG.S_ITS ---
Patient Name: ALIDA NEFF date: 1950 Sex: F Attending Physician: Sy Indications: Date: 05/20/2020 11:35 At the request of: KATE SOUTH Procedure: MM screening mammo BI BILATERAL DIGITAL SCREENING MAMMOGRAM 3D/2D WITH CAD: 05/20/2020 CLINICAL: Routine screening. Family history of breast cancer. Comparison is made to exams dated: 02/08/2019 mammogram, 10/12/2018 mammogram, 01/26/2018 mammogram, and 01/19/2017 mammogram - [facility]. There are scattered fibroglandular elements in both breasts. Current study was also evaluated with a Computer Aided Detection (CAD) system. There are benign calcifications in both breasts. There also is a biopsy clip in the left breast. No significant masses, calcifications, or other findings are seen in either breast. There has been no significant interval change. IMPRESSION: There is no mammographic evidence of malignancy. A 1 year screening mammogram is recommended. This exam was interpreted at Station ID: [id number]. NOTE: For mammograms, a report in lay terms will be sent to the patient. Approximately 15% of breast malignancies will not be visualized mammographically. In the management of a palpable breast mass, a negative mammogram must not discourage biopsy of a clinically suspicious lesion. Electronically Signed By: Jerardo Perez M.D., jr/lala:05/20/2020 11:50:50 letter sent: Normal Exam ACR BI-RADS Category 2: Benign Finding(s) [id number]
== END ==
PROVIDERS: Family Provider Student in an Organized Health Care Education/Training Program; PCP Student in an Organized Health Care Education/Training Program; Referring Provider Student in an Organized Health Care Education/Training Program; Visit Provider Student in an Organized Health Care Education/Training Program
DX: Z12.31 Encounter for screening mammogram for malignant neoplasm of breast (principal); Z80.3 Family history of malignant neoplasm of breast
CPT/HCPCS: 77063; 77067

== ENCOUNTER → 2020-09-18 09:24 | Outpatient (CLI) | payer MEDICARE, SELFPAY ==
[2020-09-18 10:24] LABS: Erythrocyte Sedimentation Rate 5 MM/HR (0-20)
[2020-09-18 11:02] LABS: Uric Acid 5.3 mg/dL (2.5-6.2)
[2020-09-18 11:09] LABS: Rheumatoid Factor < 8.6 IU/mL (<12.0)
[2020-09-19 15:37] LABS: ANA Screen, IFA Negative (.)
== END ==
PROVIDERS: Family Provider Student in an Organized Health Care Education/Training Program; PCP Student in an Organized Health Care Education/Training Program; Referring Provider Orthopaedic Surgery; Visit Provider Orthopaedic Surgery
DX: M16.12 Unilateral primary osteoarthritis, left hip (principal); M79.641 Pain in right hand; Z96.642 Presence of left artificial hip joint
CPT/HCPCS: 36415; 84550; 85651; 86038; 86430

== ENCOUNTER 2021-02-08 18:50 | Emergency (ER) | payer MEDICARE, SELFPAY ==
[2021-02-08] VITALS (31 sets, daily range): BP systolic 104–216; BP diastolic 60–141; PULSE 53–99; RESP 9–44; O2SAT 89–100
--- NOTE | 2021-02-08 | DI.RAD.S_ITS ---
PROCEDURE: XR CHEST 1V INDICATIONS: STROKE, INTUBATION TECHNIQUE: One view of the chest was acquired. COMPARISON: None. FINDINGS: Surgical changes and devices: Endotracheal tube is present with distal tip at the lois. Nasogastric tube is present with distal tip projecting below the left hemidiaphragm. Lungs and pleura: There is blunting of the right costophrenic angle. Mediastinum: Mediastinal contours appear normal. Heart size is mildly prominent. Bones and chest wall: No suspicious bony lesions. Overlying soft tissues appear unremarkable. IMPRESSION: 1. Support lines as above. 2. Blunting of the left costophrenic angle suggestive of trace effusion. Dictated by: Jami Barriga M.D. on 02/08/2021 at 19:43 Approved by: Jami Barriga M.D. on 02/08/2021 at 19:44
--- NOTE | 2021-02-08 18:52 | DI.CT.S_ITS ---
PROCEDURE: CT STROKE INDICATIONS: acute onset aphasia and right facial droop TECHNIQUE: Noncontrast 4.5 mm thick angled axial sections acquired from the foramen magnum to the vertex, with coronal reformats. For radiation dose reduction, the following was used: automated exposure control, adjustment of mA and/or kV according to patient size. COMPARISON: [facility], CT, CT SINUS SCREEN WO JORGE A, 11/03/2018, 15:53. FINDINGS: Image quality: Excellent. CSF spaces: Basal cisterns are patent. No extra-axial fluid collections. The ventricles are symmetric in size and shape. Brain: Hyperdense left frontal temporal focus of hyperdensity is present measuring 53 mm AP x 44 mm transverse by 57 mm craniocaudal. Vasogenic edema is present with left right midline shift measuring 7 mm. There is questionable minimal appearance of superimposed subarachnoid hemorrhage. Basal cisterns are patent. There is cerebral volume loss for age, with resultant ventricular and sulcal prominence. There are periventricular and deep white matter chronic small vessel ischemic changes. There is intracranial internal carotid artery atherosclerosis. Skull and face: Calvarium and visualized facial bones appear intact, without suspicious lesions. Sinuses: Visualized sinuses and mastoids are clear. IMPRESSION: 1. Left frontal temporal parenchymal hemorrhage with vasogenic edema and 7 mm [id number] midline shift as above. Suspected areas of small superimposed subarachnoid hemorrhage is identified. While this could represent hemorrhagic ischemia, hemorrhagic mass lesion cannot be excluded. MRI with and without contrast is recommended for further evaluation. The above findings were discussed with Dr. Ros Pop on 02/08/2021 at 7:06 p.m.. This study fulfills neurological imaging criteria for inclusion or exclusion of acute stroke therapies based on available published neurological guidelines. Dictated by: Jami Barriga M.D. on 02/08/2021 at 19:05 Approved by: Jami Brariga M.D. on 02/08/2021 at 19:09
--- NOTE | 2021-02-08 18:55 | ED.GENADULT ---
HPI - General Adult General Chief complaint: Neuro Symptoms/Deficit Stated complaint: Code Stroke Time Seen by Provider: 02/08/21 18:52 History of Present Illness HPI narrative: 70-year-old woman with seasonal allergies on aspirin only with history of sleep apnea presents with declining neuro status after personally calling 911 at 6:10 p.m. tonight with obvious aphasia. On arrival she has taken immediately to the CT scanner and is noted to have a large left intraparenchymal bleed and declining mental status. Related Data Home Medications Medication Instructions Recorded Confirmed Resmed Aircurve 10 BIPAP #1 ea 05/03/19 05/03/19 fexofenadine [Olivia Allergy] 180 mg PO DAILY 02/28/20 02/28/20 fluticasone propionate [Flonase 1 spray INTRANASAL BEDTIME 02/28/20 02/28/20 Allergy Relief] Previous Rx's Medication Instructions Recorded acetaminophen 500 mg PO Q4H PRN #60 tab 12/27/19 aspirin 81 mg PO BID #80 tab 03/04/20 docusate sodium [DOK] 100 mg PO BID #60 cap 03/04/20 ferrous gluconate 324 mg PO DAILY #30 tab 03/04/20 ibuprofen 400 mg PO Q4HR #30 tab 03/04/20 oxycodone 5 mg PO Q4-6H PRN #20 tab 03/04/20 polyethylene glycol 3350 17 gm PO DAILY #30 ea 03/04/20 Allergies Allergy/AdvReac Type Severity Reaction Status Date / Time Sulfa (Sulfonamide Allergy Severe RASH Verified 12/26/19 10:02 Antibiotics) adhesive tape Allergy Mild Rash Verified 12/26/19 10:02 amoxicillin [From Augmentin] AdvReac Severe GI UPSET Verified 12/26/19 10:02 clavulanic acid AdvReac Severe GI UPSET Verified 12/26/19 10:02 [From Augmentin] lactose AdvReac Mild LACTOSE Verified 12/26/19 10:02 INTOLERANCE vancomycin [VANCOMYCIN] AdvReac Mild became red Verified 12/26/19 10:02 with infusion. allergy versus red man syndrome Review of Systems Review of Systems ROS Unobtainable: Unobtainable due to mental status/LOC Patient History Medical History Arthritis Cervical nerve root impingement Chronic cough Edema Insomnia Lumbar nerve root impingement Numbness Obstructive sleep apnea of adult Osteoarthritis Palpitations Periprosthetic fracture of proximal end of femur Seasonal allergies Sinusitis Snoring Thoracic nerve root impingement Surgical History History of hip replacement History of total left hip arthroplasty History of total right hip arthroplasty (~2013) Hx of arthroscopy of left knee Hx of dilation and curettage (~1968) Hx of left breast biopsy Hx of tonsillectomy S/P excision of lipoma (~2015) Status post epidural steroid injection Social History household members: children occupational status: previously employed (retiring during quarantine) Smoking Status: Never smoker alcohol intake: current Smoking Status: Never smoker alcohol intake frequency: 0-2 drinks per day Substance Use Type: does not use Exam Narrative Exam Narrative: General: Healthy appearing, right facial droop with decreasing alertness, significant aphasia HEENT: Moist mucous membranes, normal sclera with pupils are 3 mm and minimally reactive Neck: No JVD, supple Respiratory: Shallow respiration initially, once intubated no wheezing no rales no rhonchi. Full and symmetrical air movement Cardiac: Regular rate and rhythm no murmurs no bruits Abdomen: Soft, nontender, good bowel tones, no flank pain Skin: Warm and dry, no rashes Neurologic: Severe right-sided weakness with significant aphasia and decreasing mental status. Unable to follow commands making NIH score less helpful however initial score is at 25 Extremities: No trauma, well perfused Psych: Minimally responsive Initial Vital Signs Initial Vital Signs: Vital Signs Pulse Rate 58 L 02/08/21 19:00 Respiratory Rate 19 02/08/21 19:00 Blood Pressure 175/87 H 02/08/21 19:00 Pulse Oximetry 95 02/08/21 19:00 Procedures Intubation Time out performed: Yes sedative: other (propofol) Mg Given: 60 paralytic: Succinylcholine Mg Given: 100 Laryngoscope: fiber optic video scope Assist Device Used: Bougie ET Tube Size: 7.5 ET Tube Uncuffed: Yes Tube Secured Depth (cm): 22 Tube Secured Location: teeth Tube Placement Confirmation: Visualized tube passing through cords, Equal breath sounds bilaterally, Confirmation by capnometry and Chest Xray Patient Tolerated Procedure: Well Intubation Complications: difficult intubation (Very anterior airway. Bougie was needed and ET tube was advanced over that.) Scores NIH Stroke Scale Level of Conciousness: Not alert, but arousable by minor stim to obey, answer or respond Ask month/age: Answers neither question correctly, aphasic, stuporous, coma Open/close eyes, close hand: Performs one task correctly Best gaze horizontal: Partial gaze palsy, can be overcome by finger tracking, head turning Facial palsy: Complete paralysis, absence of movement in the upper and lower face Left arm drift: Drifts down, not to bed Right arm drift: No effort against gravity Left leg drift: Drifts down, not to bed Right leg drift: No effort against gravity Best language: Mute, global aphasia Dysarthria: Physical barrier to speech, intubated Course Orders Ordered: Discontinued Medications Fentanyl (Fentanyl 100 Mcg/2 Ml Inj) 100 mcg IV NOW ONE Stop: 02/08/21 19:23 Last Admin: 02/08/21 19:25 Dose: 100 mcg Documented by: ANITRA Fentanyl (Fentanyl 100 Mcg/2 Ml Inj) 50 mcg IV Q15MIN PRN PRN Reason: Pain, Severe (7-10) Sodium Chloride (Normal Saline 0.9%) 1,000 mls @ 150 mls/hr IV CONT KETAN Last Infusion: 02/08/21 19:58 Dose: 0 mls/hr Documented by: Admin: 02/08/21 19:00 Dose: 150 mls/hr Documented by: ANITRA Nicardipine HCl 25 mg/ Sodium (Chloride) 250 mls @ 50 mls/hr IV TITRATE KETAN; Protocol Last Titration: 02/08/21 20:00 Dose: 0 mg/hr, 0 mls/hr Documented by: Titration: 02/08/21 19:30 Dose: 0 mg/hr, 0 mls/hr Documented by: Admin: 02/08/21 19:19 Dose: 5 mg/hr, 50 mls/hr Documented by: ANITRA Propofol (Propofol) 1,000 mg in 100 mls @ 2.436 mls/hr IV TITRATE KETAN Last Infusion: 02/08/21 20:00 Dose: 0 mcg/kg/min, 0 mls/hr Documented by: Admin: 02/08/21 19:23 Dose: 5 mcg/kg/min, 2.436 mls/hr Documented by: ANITRA Propofol (Propofol 200 Mg/20 Ml Vial) 60 mg IV NOW ONE Stop: 02/08/21 19:12 Last Admin: 02/08/21 19:16 Dose: 60 mg Documented by: ANITRA Propofol (Propofol 200 Mg/20 Ml Vial) 60 mg IV NOW ONE Stop: 02/08/21 19:15 Last Admin: 02/08/21 19:17 Dose: 60 mg Documented by: ANITRA Succinylcholine Chloride (Succinylcholine 100 Mg/5 Ml Inj) 100 mg IV NOW ONE Stop: 02/08/21 19:14 Last Admin: 02/08/21 19:17 Dose: 100 mg Documented by: ANITRA Vital Signs Vital signs: Vital Signs - 8 hr 02/08/21 19:00 02/08/21 19:08 02/08/21 19:09 Pulse Rate 58 L 53 L 55 L Respiratory Rate 19 18 19 Blood Pressure 175/87 H Pulse Oximetry 95 100 100 02/08/21 19:10 02/08/21 19:11 02/08/21 19:12 Pulse Rate 53 L 54 L 53 L Respiratory Rate 20 20 25 H Blood Pressure 165/104 H Pulse Oximetry 100 100 100 02/08/21 19:13 02/08/21 19:14 02/08/21 19:15 Pulse Rate 87 99 H 93 H Respiratory Rate 26 H 16 9 L Blood Pressure Pulse Oximetry 99 98 89 L 02/08/21 19:16 02/08/21 19:17 02/08/21 19:18 Pulse Rate 90 83 78 Respiratory Rate 18 25 H 17 Blood Pressure 216/124 H Pulse Oximetry 99 99 100 02/08/21 19:19 02/08/21 19:20 02/08/21 19:21 Pulse Rate 76 68 67 Respiratory Rate 30 H 40 H 25 H Blood Pressure 205/141 H Pulse Oximetry 100 100 100 02/08/21 19:22 02/08/21 19:23 02/08/21 19:24 Pulse Rate 74 66 68 Respiratory Rate 34 H 44 H 26 H Blood Pressure Pulse Oximetry 99 99 97 02/08/21 19:25 02/08/21 19:26 02/08/21 19:27 Pulse Rate 69 69 67 Respiratory Rate 17 19 22 Blood Pressure 137/86 Pulse Oximetry 97 97 96 02/08/21 19:28 02/08/21 19:29 02/08/21 19:30 Pulse Rate 68 63 62 Respiratory Rate 36 H 21 30 H Blood Pressure 106/60 Pulse Oximetry 96 95 96 02/08/21 19:31 02/08/21 19:32 02/08/21 19:33 Pulse Rate 60 58 L 58 L Respiratory Rate 24 17 23 Blood Pressure 104/65 Pulse Oximetry 95 95 95 02/08/21 19:34 02/08/21 19:35 02/08/21 19:36 Pulse Rate 57 L 57 L 58 L Respiratory Rate 16 20 21 Blood Pressure 105/62 Pulse Oximetry 95 95 94 02/08/21 19:37 Pulse Rate 56 L Respiratory Rate 18 Blood Pressure Pulse Oximetry 94 Medical Decision Making Medical Records Medical records reviewed: Yes I reviewed the patient's medical records. Lab Data Lab results reviewed: Yes I reviewed the patient's lab results. Result diagrams: 02/08/21 19:09 02/08/21 19:09 Labs: Lab Results 02/08/21 02/08/21 02/08/21 Range/Units 19:00 19:09 19:09 WBC 7.9 (4.5-11.0) X10^3/uL RBC 4.26 (4.0-5.2) X10^6/uL Hgb 13.3 (12.0-16.0) g/dL Hct 39.4 (36-46) % MCV 92.5 (80-100) fL MCH 31.1 (26-34) PG MCHC 33.6 (30-36) % RDW 13.8 (11.6-14.8) % Plt Count 238 (150-400) X10^3/uL Neut % (Auto) 60.5 (50-75) % Lymph % (Auto) 31.6 (25-40) % [place] % (Auto) 5.7 (3-14) % Eos % (Auto) 1.5 L (2-4) % Baso % (Auto) 0.7 (0-2) % Neut # (Auto) 4800 (6900-7900) /uL Lymph # (Auto) 2500 (0565-6716) /uL [place] # (Auto) 400 (0-900) /uL Eos # (Auto) 100 (0-450) /uL Baso # (Auto) 100 (0-100) /uL PT 10.6 (10.1-12.7) SECONDS INR 0.9 (0.9-1.3) APTT 25 L (26.4-36.2) SECONDS ABG pH (7.35-7.45) ABG pCO2 (35-45) mmHg ABG pO2 (80-100) mmHg ABG HCO3 (22-26) mmol/L ABG Total CO2 (21-31) mmol/L ABG O2 Saturation (95-100) % ABG Base Excess (-2-2) mmol/L FiO2 Sodium (137-145) mmol/L Potassium (3.4-5.1) mmol/L Chloride (98-107) mmol/L Carbon Dioxide (22-32) mmol/L BUN (7-17) mg/dL Creatinine (0.52-1.04) mg/dL Estimated GFR (>60) mL/min BUN/Creatinine Ratio (6-22) Glucose (80-110) mg/dL Calcium (8.4-10.2) mg/dL Total Bilirubin (0.2-1.3) mg/dL AST (14-36) IU/L ALT (<35) IU/L Alkaline Phosphatase (38-126) U/L Total Protein (6.3-8.2) g/dL Albumin (3.5-5.0) g/dL Globulin (1.7-4.1) g/dL Albumin/Globulin Ratio (1.0-2.8) Urine Color Urine Appearance Urine pH (4.5-8.0) Ur Specific [place] (1.000-1.035) Urine Protein (Negative) Urine Glucose (UA) (Negative) g/dL Urine Ketones (NEGATIVE) Urine Occult Blood (Negative) Urine Nitrate (Negative) Urine Bilirubin (NEGATIVE) Urine Urobilinogen (0.2) E.U./dL Ur Leukocyte Esterase (NEGATIVE) Urine RBC (0-5/HPF) Urine WBC (0-5/HPF) Urine Bacteria (None) Ur Culture Indicated? U Opiates 300ng/mL cut (Negative) Ur Oxycodone Screen (Negative) Urine Methadone Screen (Negative) Ur Barbiturates Screen (Negative) U Tricyclic Antidepress (Negative) Ur Phencyclidine Scrn (Negative) Ur Amphetamines Screen (Negative) U Methamphetamines Scrn (Negative) Ur MDMA Scrn (Ecstasy) (Negative) U Benzodiazepines Scrn (Negative) Urine Cocaine Screen (Negative) U Marijuana (THC) Screen (Negative) SARS-CoV-2 (PCR) Negative (Negative) 02/08/21 02/08/21 02/08/21 Range/Units 19:09 19:26 19:26 WBC (4.5-11.0) X10^3/uL RBC (4.0-5.2) X10^6/uL Hgb (12.0-16.0) g/dL Hct (36-46) % MCV (80-100) fL MCH (26-34) PG MCHC (30-36) % RDW (11.6-14.8) % Plt Count (150-400) X10^3/uL Neut % (Auto) (50-75) % Lymph % (Auto) (25-40) % [place] % (Auto) (3-14) % Eos % (Auto) (2-4) % Baso % (Auto) (0-2) % Neut # (Auto) (3668-1377) /uL Lymph # (Auto) (9333-9666) /uL [place] # (Auto) (0-900) /uL Eos # (Auto) (0-450) /uL Baso # (Auto) (0-100) /uL PT (10.1-12.7) SECONDS INR (0.9-1.3) APTT (26.4-36.2) SECONDS ABG pH (7.35-7.45) ABG pCO2 (35-45) mmHg ABG pO2 (80-100) mmHg ABG HCO3 (22-26) mmol/L ABG Total CO2 (21-31) mmol/L ABG O2 Saturation (95-100) % ABG Base Excess (-2-2) mmol/L FiO2 Sodium 137 (137-145) mmol/L Potassium 3.8 (3.4-5.1) mmol/L Chloride 106 (98-107) mmol/L Carbon Dioxide 23 (22-32) mmol/L BUN 19 H (7-17) mg/dL Creatinine 0.95 (0.52-1.04) mg/dL Estimated GFR 57.8 L (>60) mL/min BUN/Creatinine Ratio 20.0 (6-22) Glucose 148 H (80-110) mg/dL Calcium 9.3 (8.4-10.2) mg/dL Total Bilirubin 0.4 (0.2-1.3) mg/dL AST 38 H (14-36) IU/L ALT 24 (<35) IU/L Alkaline Phosphatase 87 (38-126) U/L Total Protein 7.2 (6.3-8.2) g/dL Albumin 4.3 (3.5-5.0) g/dL Globulin 2.9 (1.7-4.1) g/dL Albumin/Globulin Ratio 1.5 (1.0-2.8) Urine Color Yellow Urine Appearance Clear Urine pH 6.0 (4.5-8.0) Ur Specific [place] 1.025 (1.000-1.035) Urine Protein Negative (Negative) Urine Glucose (UA) Negative (Negative) g/dL Urine Ketones Trace H (NEGATIVE) Urine Occult Blood Negative (Negative) Urine Nitrate Negative (Negative) Urine Bilirubin Negative (NEGATIVE) Urine Urobilinogen 0.2 (0.2) E.U./dL Ur Leukocyte Esterase Negative (NEGATIVE) Urine RBC None seen (0-5/HPF) Urine WBC None seen (0-5/HPF) Urine Bacteria None seen (None) Ur Culture Indicated? Cult not indicated U Opiates 300ng/mL cut Negative (Negative) Ur Oxycodone Screen Negative (Negative) Urine Methadone Screen Negative (Negative) Ur Barbiturates Screen Negative (Negative) U Tricyclic Antidepress Negative (Negative) Ur Phencyclidine Scrn Negative (Negative) Ur Amphetamines Screen Negative (Negative) U Methamphetamines Scrn Negative (Negative) Ur MDMA Scrn (Ecstasy) Negative (Negative) U Benzodiazepines Scrn Negative (Negative) Urine Cocaine Screen Negative (Negative) U Marijuana (THC) Screen Negative (Negative) SARS-CoV-2 (PCR) (Negative) 02/08/21 Range/Units 19:36 WBC (4.5-11.0) X10^3/uL RBC (4.0-5.2) X10^6/uL Hgb (12.0-16.0) g/dL Hct (36-46) % MCV (80-100) fL MCH (26-34) PG MCHC (30-36) % RDW (11.6-14.8) % Plt Count (150-400) X10^3/uL Neut % (Auto) (50-75) % Lymph % (Auto) (25-40) % [place] % (Auto) (3-14) % Eos % (Auto) (2-4) % Baso % (Auto) (0-2) % Neut # (Auto) (6517-1675) /uL Lymph # (Auto) (0676-2831) /uL [place] # (Auto) (0-900) /uL Eos # (Auto) (0-450) /uL Baso # (Auto) (0-100) /uL PT (10.1-12.7) SECONDS INR (0.9-1.3) APTT (26.4-36.2) SECONDS ABG pH 7.37 (7.35-7.45) ABG pCO2 40.0 (35-45) mmHg ABG pO2 77 L (80-100) mmHg ABG HCO3 23 (22-26) mmol/L ABG Total CO2 24 (21-31) mmol/L ABG O2 Saturation 95 (95-100) % ABG Base Excess -2.0 (-2-2) mmol/L FiO2 35 Sodium (137-145) mmol/L Potassium (3.4-5.1) mmol/L Chloride (98-107) mmol/L Carbon Dioxide (22-32) mmol/L BUN (7-17) mg/dL Creatinine (0.52-1.04) mg/dL Estimated GFR (>60) mL/min BUN/Creatinine Ratio (6-22) Glucose (80-110) mg/dL Calcium (8.4-10.2) mg/dL Total Bilirubin (0.2-1.3) mg/dL AST (14-36) IU/L ALT (<35) IU/L Alkaline Phosphatase (38-126) U/L Total Protein (6.3-8.2) g/dL Albumin (3.5-5.0) g/dL Globulin (1.7-4.1) g/dL Albumin/Globulin Ratio (1.0-2.8) Urine Color Urine Appearance Urine pH (4.5-8.0) Ur Specific [place] (1.000-1.035) Urine Protein (Negative) Urine Glucose (UA) (Negative) g/dL Urine Ketones (NEGATIVE) Urine Occult Blood (Negative) Urine Nitrate (Negative) Urine Bilirubin (NEGATIVE) Urine Urobilinogen (0.2) E.U./dL Ur Leukocyte Esterase (NEGATIVE) Urine RBC (0-5/HPF) Urine WBC (0-5/HPF) Urine Bacteria (None) Ur Culture Indicated? U Opiates 300ng/mL cut (Negative) Ur Oxycodone Screen (Negative) Urine Methadone Screen (Negative) Ur Barbiturates Screen (Negative) U Tricyclic Antidepress (Negative) Ur Phencyclidine Scrn (Negative) Ur Amphetamines Screen (Negative) U Methamphetamines Scrn (Negative) Ur MDMA Scrn (Ecstasy) (Negative) U Benzodiazepines Scrn (Negative) Urine Cocaine Screen (Negative) U Marijuana (THC) Screen (Negative) SARS-CoV-2 (PCR) (Negative) Imaging Data CT scan - head: Radiologist's Impression: FINDINGS: Image quality: Excellent. CSF spaces: Basal cisterns are patent. No extra-axial fluid collections. The ventricles are symmetric in size and shape. Brain: Hyperdense left frontal temporal focus of hyperdensity is present measuring 53 mm AP x 44 mm transverse by 57 mm craniocaudal. Vasogenic edema is present with left right midline shift measuring 7 mm. There is questionable minimal appearance of superimposed subarachnoid hemorrhage. Basal cisterns are patent. There is cerebral volume loss for age, with resultant ventricular and sulcal prominence. There are periventricular and deep white matter chronic small vessel ischemic changes. There is intracranial internal carotid artery atherosclerosis. Skull and face: Calvarium and visualized facial bones appear intact, without suspicious lesions. Sinuses: Visualized sinuses and mastoids are clear. IMPRESSION: 1. Left frontal temporal parenchymal hemorrhage with vasogenic edema and 7 mm [id number] midline shift as above. Suspected areas of small superimposed subarachnoid hemorrhage is identified. While this could represent hemorrhagic ischemia, hemorrhagic mass lesion cannot be excluded. MRI with and without contrast is recommended for further evaluation. The above findings were discussed with Dr. Ros Pop on 02/08/2021 at 7:06 p.m.. This study fulfills neurological imaging criteria for inclusion or exclusion of acute stroke therapies based on available published neurological guidelines. Dictated by: Jami Barriga M.D. on 02/08/2021 at 19:05 ECG Data Attestation: I personally reviewed and interpreted this ECG as follows: Interpretation: Sinus rhythm at a rate of 62 Normal axis, normal intervals No acute ischemic changes MDM Narrative Medical decision making narrative: 70-year-old woman otherwise healthy on aspirin only called 911 herself at 6:10 a.m. this evening unable to speak. Initial CT scan shows large left intraparenchymal bleed possible subarachnoid with midline shift and decreasing mental status. She is vomiting and not maintaining her airway. Initial NIH is 25 points with unable to evaluate sensation, ataxia, or visual soto due to aphasia/dysphagia Phone call from radiology confirms intraparenchymal bleed with shift Phone call to [facility] confirms bed availability. Spoke with Dr. Corey, neurosurgeon. 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 Airlifted activated Talked with Dr Norton, ICU doctor. Labs not yet available nor is Covid testing. Disc is being made of the CT scan and attempts are being made to continue electronic transfer down. EKG is unremarkable. Son, Jareth, is now available. He is informed of findings and allowed to say goodbye toes mother before she is transported by or lift. Once appropriately sedated, blood pressure has come down significantly and nicardipine is turned off. Transferred to her lift personnel, intubated hemodynamically stable sinus rhythm. PCR COVID testing has been done. When available will fax to [facility] [place] neuro ICU at [phone]. Son reports no COVID concerns or symptoms Critical Care Time Critical Care Time Critical Care Time: Yes Total Critical Care Time: 33 Attestation: Critical care time is separate from other billable procedures. This critical care time includes consultation with family and other consulting doctors, review of records, and interpretation of data from labs, EKGs and imaging as well as managements of acute intraparenchymal bleed with rapidly decreasing mental status Discharge Plan Departure Patient Disposition: [facility] Clinical Impression: Acute spontaneous intraparenchymal intracranial hemorrhage Prescriptions: No Action fexofenadine [Olivia Allergy] 180 mg Tablet 180 mg PO DAILY RF: 0 fluticasone propionate [Flonase Allergy Relief] 50 mcg/actuation [place],Suspension 1 spray INTRANASAL BEDTIME RF: 0 polyethylene glycol 3350 17 gram Powder In Packet 17 gm PO DAILY Qty: 30 RF: 0 docusate sodium [DOK] 100 mg Capsule 100 mg PO BID Qty: 60 RF: 0 oxycodone 5 mg Tablet 5 mg PO Q4-6H PRN (Reason: Pain, Moderate (4-6)) Qty: 20 RF: 0 ferrous gluconate 324 mg (38 mg iron) Tablet 324 mg PO DAILY Qty: 30 RF: 0 aspirin 81 mg Tablet,Delayed Release (Dr/Ec) 81 mg PO BID Qty: 80 RF: 0 ibuprofen 400 mg Tablet 400 mg PO Q4HR Qty: 30 RF: 0 acetaminophen 500 mg Tablet 500 mg PO Q4H PRN (Reason: Pain) Qty: 60 RF: 0 (DME) Resmed Aircurve 10 BIPAP Qty: 1 RF: 0 Referrals: Shelbie Dan PA-C [Primary Care Provider] -
[2021-02-08] MEDS: SODIUM CHLORIDE 0.9% 1,000 ML 150 ML IV (19:00)
[2021-02-08 19:14] LABS: Add Manual Diff / Slide Review NO; Basophils Absolute Auto 100 /uL (0-100); Basophils Percent Auto 0.7 % (0-2); Eosinophils Absolute Auto 100 /uL (0-450); Eosinophils Percent Auto 1.5 % (2-4); Hematocrit 39.4 % (36-46); Hemoglobin 13.3 g/dL (12.0-16.0); Lymphocytes Absolute Auto 2500 /uL (1100-4500); Lymphocytes Percent Auto 31.6 % (25-40); Mean Corpuscular HGB Conc 33.6 % (30-36); Mean Corpuscular Hemoglobin 31.1 PG (26-34); Mean Corpuscular Volume 92.5 fL (80-100); Monocytes Absolute Auto 400 /uL (0-900); Monocytes Percent Auto 5.7 % (3-14); Neutrophils Absolute Auto 4800 /uL (1500-7000); Neutrophils Percent Auto 60.5 % (50-75); Platelet Count 238 X10^3/uL (150-400); Red Blood Cell Count 4.26 X10^6/uL (4.0-5.2); Red Cell Distribution Width 13.8 % (11.6-14.8); White Blood Cell Count 7.9 X10^3/uL (4.5-11.0)
[2021-02-08] MEDS: propofoL 200 MG/20 ML VIAL 60 MG IV ×2 (19:16→19:17)
[2021-02-08] MEDS: SUCCINYLCHOLINE 100 MG/5 ML INJ IV (19:17)
[2021-02-08] MEDS: NICARDIPINE 25 MG in SODIUM CHLORIDE 0.9% 240 ML 50 ML IV (19:19)
--- NOTE | 2021-02-08 19:21 | PC.NURSE ---
drawn from right IV placed by medics in route
[2021-02-08 19:23] LABS: INR 0.9 (0.9-1.3); Prothrombin Time 10.6 SECONDS (10.1-12.7)
[2021-02-08 19:23] LABS: COVID19 -Nasal RAPID Negative (Negative)
[2021-02-08] MEDS: propofoL 1,000 MG/100 ML VIAL 2.436 MG IV (19:23)
[2021-02-08 19:25] LABS: Alanine Aminotransferase 24 IU/L (<35); Albumin 4.3 g/dL (3.5-5.0); Albumin Globulin Ratio 1.5 (1.0-2.8); Alkaline Phosphatase 87 U/L (38-126); Aspartate Aminotransferase 38 IU/L (14-36); Bilirubin Total 0.4 mg/dL (0.2-1.3); Blood Urea Nitrogen 19 mg/dL (7-17); Calcium 9.3 mg/dL (8.4-10.2); Carbon Dioxide 23 mmol/L (22-32); Chloride 106 mmol/L (98-107); Estimated Glomerular Filt Rate 57.8 mL/min (>60); Globulin 2.9 g/dL (1.7-4.1); Glucose 148 mg/dL (80-110); Potassium 3.8 mmol/L (3.4-5.1); Sodium 137 mmol/L (137-145); Total Protein 7.2 g/dL (6.3-8.2)
[2021-02-08] MEDS: fentaNYL 100 MCG/2 ML INJ IV (19:25)
[2021-02-08 19:26] LABS: HEMOLYSIS 60 (0-50); PTT Partial Thromboplastin Tim 25 SECONDS (26.4-36.2)
[2021-02-08 19:39] LABS: UR Morphine/Opiate cutoff 300 Negative (Negative); Ur Creatinine Normal (Normal); Ur Specific Gravity Normal (Normal); Urine Amphetamines Negative (Negative); Urine Barbiturates Negative (Negative); Urine Benzodiazepines Negative (Negative); Urine Cocaine Negative (Negative); Urine MDMA Negative (Negative); Urine Methadone Negative (Negative); Urine Methamphetamines Negative (Negative); Urine Oxycodone Negative (Negative); Urine Phencyclidine Negative (Negative); Urine Tetrahydrocannabinol Negative (Negative); Urine Tricyclic Antidepressant Negative (Negative); Urine pH Normal (Normal)
[2021-02-08 19:43] LABS: Bacteria Urine None Seen; RBC Urine None Seen (0-5/HPF); WBC Urine None Seen (0-5/HPF)
[2021-02-08 19:45] LABS: Appearance Urine UA CLEAR; Bilirubin Urine UA NEGATIVE (NEGATIVE); Color Urine UA YELLOW; Glucose Urine UA NEGATIVE (Negative); Ketones Urine UA TRACE (NEGATIVE); Leukocyte Esterase Urine UA NEGATIVE (NEGATIVE); Nitrite Urine UA NEGATIVE (Negative); Occult Blood Urine UA NEGATIVE (Negative); Protein Urine UA NEGATIVE (Negative); Specific Gravity Urine UA 1.025 (1.000-1.035); Urobilinogen Urine UA 0.2 E.U./dL (0.2)
[2021-02-08 19:47] LABS: Culture Indicated Urine Cult Not Indicated
[2021-02-08 19:52] LABS: HCO3 ABG 23 mmol/L (22-26); Oxygen Saturation ABG 95 % (95-100); PO2 ABG 77 mmHg (80-100); TCO2 ABG 24 mmol/L (21-31); pH ABG 7.37 (7.35-7.45)
[2021-02-08 19:53] LABS: Fractionated Inspired Oxygen 35
--- NOTE | 2021-02-08 20:18 | PC.NURSE ---
Summary note: Pt is a healthy 70 yo female who lives alone w/o assistive device in [place]. At 1755 pt called 911 but was unable to speak into phone. 911 activated EMS who found pt to be aphasic w/ right sided droop. En route pt started to vomit. IV was extablished x 2 prior to arrival. Pt to scanner w/ Code stroke and Left ICH was found. Pt to room 2 where pt continued to vomit and was poorly responsive. No trauma noted to head / body. Provider initial NIH 25. @Pt intubated w/ 7.5 ETT, 22cm at teeth. + C02, no sound over epigastrum, bilateral breath sounds auscultated. # 18 ft OG placed via glide scope w/ + gastric contents out. Placed on intermittant low wall suction. Chest x ray obtained for ETT placement. Nicardipine, proporfol, fentanyl as documented. Airlift arrived and was given report at bedside. Care turned over at 1935. Left department at 1945. Report called to [facility]. Son arrived to bedside prior to [facility] leaving. Updated on care and verbalized agreement and understanding of pt condition and need for transfer to higher level of care. Report called to [facility].
--- NOTE | 2021-02-08 20:26 | PC.NURSE ---
Belongings including purse, glasses and keys turned over to son at time of discharge.
== END 2021-02-08 19:45 | disposition short-term general hospital (02) ==
PROVIDERS: Emergency Provider Emergency Medicine; Family Provider Student in an Organized Health Care Education/Training Program; PCP Student in an Organized Health Care Education/Training Program
DX: I61.9 Nontraumatic intracerebral hemorrhage, unspecified (principal); R47.01 Aphasia; R41.89 Other symptoms and signs involving cognitive functions and awareness; Z20.822 Contact with and (suspected) exposure to COVID-19
CPT/HCPCS: 31500; 36415; 36600; 51701; 70450; 71045; 80053; 80305; 81001; 82805; 85025; 85610; 85730; 87635; 93005; 94799; 96374; 99285; 99291; C9803; J0330; J2704; J3010